=== PATIENT | female | born 1980 | race Caucasian/White ===

== ENCOUNTER 2019-04-07 10:11 | Emergency (ER) | payer SELFPAY ==
--- OUTSIDE RECORDS SUMMARY | 2019-04-07 10:16 | XMS REPORT | Continuity of Care Document ---
:1980 Author Organization Interface Problems Problem Status Onset Classification Date Comments Source Date Reported L TIBFIB FX Active [address] AUTO/PED Active [address] LIFE FLIGHT Active [address] Final: 01/18/2017 [facility] Unspecified Medical fracture of Center shaft of left fibula, initial encounter for closed fracture UNSP FRACTURE Active [facility] OF SHAFT OF Medical LEFT FIBULA, I [place] Medications Medication Details Route Status Patient Ordering Order Source Instructions Provider Date Aspirin 325 MG 325 mg=1 tab, Active [facility] Enteric Coated PO, Daily, # 21 2017 Medical Tablet tab, 0 Refill(s) Center tramadol 50 mg=1 tab, PO, Active [place] hydrochloride 50 Q6H, PRN Pain 2017 Medical MG Oral Tablet Score 7-10, # 24 Center tab, 0 Refill(s) methocarbamol 1,000 mg=2 tab, Active [place] 500 mg oral PO, QID, X 7 2017 Medical tablet day, # 56 tab, 0 Center Refill(s) gabapentin 300 300 mg=1 cap, Active [place] MG Oral Capsule PO, Q8H, # 21 2017 Medical cap, 0 Refill(s) [place] enoxaparin 40 40 mg=0.4 mL, Inactive [place] mg/0.4 mL SUB-Q, [id number], 2017 Medical subcutaneous X 21 day, # 8 Center solution mL, 0 Refill(s) Bacitracin 0.5 1 appl, TOP, Active [place] UNT/MG / BID, # 30 gm, 0 2017 Medical Polymyxin B 10 Refill(s) [place] UNT/MG Topical Ointment acetaminophen 1,000 mg=2 tab, Active [place] 500 mg oral PO, Q6H, X 7 2017 Medical tablet day, # 56 tab, 0 Center Refill(s) Zofran 4 mg, 2 mL, No Longer [facility] Route: IVP, Drug Active 2016 Medical form: INJ, Q8H, Center Dosing Weight 72.727, kg, PRN Nausea, Start date: 01/14/17 10:34:00 CDT, Duration: 30 day, Stop date: 02/13/17 10:33:00 CDTNotes: (Same as: Zofran) MEDICATION WASTE Product Size: 4 mg Product Wasted: ___ mg Bacitracin 0.5 1 appl, Route: No Longer [facility] UNT/MG / TOP, BID, Drug Active 2016 Medical Polymyxin B 10 form: OINT, [place] UNT/MG Topical Priority: Now, Ointment Start date: 01/14/17 10:00:00 CDT, Duration: 30 day, Stop date: 02/13/17 9:00:00 CDTNotes: (Same As: Polysporin) potassium 40 mEq, 2 tab, Inactive [place] chloride 20 mEq Route: PO, Drug 2016 Medical oral tablet, form: ERTAB, [place] extended release ONCE, Dosing Weight 72.727, kg, Start date: 01/14/17 9:10:00 CDT, Stop date: 01/14/17 9:10:00 CDTNotes: (Same as: K-Dur 20) "Do Not Crush" With food and full glass of water naproxen sodium 550 mg, 1 tab, Inactive [facility] Route: PO, Drug 2016 Medical form: TAB, ONCE, Center Dosing Weight 72.727, kg, Start date: 01/13/17 18:19:00 CDT, Stop date: 01/13/17 18:19:00 CDTNotes: (Same as: Anaprox DS) Take with food. tramadol 100 mg, 2 tab, No Longer [facility] hydrochloride 50 Route: PO, Drug Active 2016 Medical MG Oral Tablet form: TAB, Q6H, Center Dosing Weight 72.727, kg, PRN Pain Score 7-10, Start date: 01/13/17 18:19:00 CDT, Duration: 30 day, Stop date: 02/12/17 18:18:00 CDTNotes: Not to exceed 400mg/day. (Same As: Ultram) Methocarbamol 1,000 mg, 2 tab, No Longer [place] Route: PO, Drug Active 2016 Medical form: TAB, QID, Center Dosing Weight 72.727, kg, Priority: NOW, Start date: 01/13/17 18:19:00 CDT, Duration: 30 day, Stop date: 02/12/17 17:00:00 CDTNotes: (Same as:Robaxin) gabapentin 300 300 mg, 1 cap, No Longer [place] MG Oral Capsule Route: PO, Drug Active 2016 Medical form: CAP, Q8H, Center Dosing Weight 72.727, kg, (CrCl > 60 ml/min), Priority: STAT, Start date: 01/13/17 18:18:00 CDT, Duration: 30 day, Stop date: 02/12/17 16:00:00 CDTNotes: (Same as: Neurontin) Acetaminophen 1,000 mg, 2 tab, No Longer [place] Route: PO, Drug Active 2016 Medical form: TAB, Q6H, Center Dosing Weight 72.727, kg, Priority: NOW, Start date: 01/13/17 18:18:00 CDT, Duration: 30 day, Stop date: 02/12/17 18:00:00 CDTNotes: Max acetaminophen 4000 mg/day (4 gm/day). (Same as: Tylenol Extra Strength) Ancef + sodium 2 gm, Route: No Longer [place] chloride 0.9% IVPB, ABXQ8H, Active 2016 Medical INJ 100 mL Dosing Weight Center 72.727, kg, Start date: 01/13/17 18:00:00 CDT, Duration: 3 doses or times, Stop date: 01/14/17 10:00:00 CDTNotes: (Same As: Ancef, Kefzol) MEDICATION WASTE Product Size: 1000 mg Product Wasted: ___ mg Naloxone 0.4 mg, 1 mL, Inactive [place] Route: IVP, Drug 2016 Medical form: INJ, Center Q2MIN, Dosing Weight 72.727, kg, PRN Narcotic Reversal, Start date: 01/13/17 13:47:00 CDT, Duration: 8 doses or times, Stop date: Limited # of timesNotes: (Same as: Narcan) Ondansetron 4 mg, 2 mL, Inactive [facility] Route: IVP, Drug 2016 Medical form: INJ, ONCE, Center Dosing Weight 72.727, kg, PRN Nausea & Vomiting, Start date: 01/13/17 13:47:00 CDTNotes: (Same as: Zofran) MEDICATION WASTE Product Size: 4 mg Product Wasted: ___ mg Flumazenil 0.2 mg, 2 mL, Inactive [facility] Route: IVP, Drug 2016 Medical form: INJ, PRN, Center Dosing Weight 72.727, kg, PRN Benzodiazepine Reversal, Initial dose, Start date: 01/13/17 13:47:00 CDT, Duration: 1 day, Stop date: 01/14/17 13:46:00 CDTNotes: (Same as: Romazicon) Oxycodone 5 mg, 1 tab, Inactive [facility] Route: PO, Drug 2016 Medical form: TAB, Q4H, Center Dosing Weight 72.727, kg, PRN Pain Score 4-6, Start date: 01/13/17 13:47:00 CDT, Duration: 1 day, Stop date: 01/14/17 13:46:00 CDTNotes: (Same as: Roxicodone) Hydromorphone 0.5 mg, 0.25 mL, Inactive [facility] Route: IVP, Drug 2016 Medical form: INJ, Center Q5Min, Dosing Weight 72.727, kg, PRN Pain Score 7-10, Start date: 01/13/17 13:47:00 CDT, Duration: 4 doses or times, Stop date: Limited # of timesNotes: (Same as: Dilaudid) ondansetron Route: IV, Drug Inactive [facility] (ANES) form: INJ, ONCE, 2016 Medical Stop date: [place] 01/13/17 12:50:00 CDT glycopyrrolate Route: IV, Drug Inactive 01/13[facility] (ANES) form: INJ, ONCE, 2016 Medical Stop date: [place] 01/13/17 12:50:00 CDT neostigmine Route: IV, Drug Inactive 03/31/ [facility] [place] (ANES) form: INJ, ONCE, 2016 Medical Stop date: [place] 01/13/17 12:50:00 CDT hydromorphone Route: IV, Drug Inactive [facility] (ANES) form: INJ, ONCE, 2016 Medical Stop date: [place] 01/13/17 11:35:00 CDT fentaNYL (ANES) Route: IV, Drug Inactive [facility] form: INJ, ONCE, 2016 Medical Stop date: [place] 01/13/17 11:00:00 CDT dexamethasone Route: IV, Drug Inactive [facility] (ANES) form: INJ, ONCE, 2016 Medical Stop date: [place] 01/13/17 11:00:00 CDT midazolam (ANES) Route: IV, Drug Inactive [facility] form: SOLN, 2016 Medical ONCE, Stop date: [place] 01/13/17 11:00:00 CDT rocuronium Route: IV, Drug Inactive [facility] (ANES) form: INJ, ONCE, 2016 Medical Stop date: [place] 01/13/17 11:00:00 CDT propofol (ANES) Route: IV, Drug Inactive [facility] form: INJ, ONCE, 2016 Medical Stop date: [place] 01/13/17 11:00:00 CDT lidocaine (ANES) Route: IV, Drug Inactive [facility] form: INJ, ONCE, 2016 Medical Stop date: [place] 01/13/17 11:00:00 CDT ceFAZolin (ANES) Route: IV, Drug Inactive [facility] form: INJ, ONCE, 2016 Medical Stop date: [place] 01/13/17 10:45:00 CDT acetaminophen Route: IV, Drug Inactive [place] (ANES) (ANES) form: INJ, Start 2016 Medical date: 01/13/17 [place] 10:28:00 CDT, Stop date: 01/13/17 11:28:00 CDT LR 1000 mL INJ Route: IV, Total Inactive [place] (ANES) Volume: 1,000, 2016 Medical Start date: [place] 01/13/17 10:05:00 CDT, Stop date: 01/13/17 11:05:00 CDT Lovenox 40 mg, 0.4 mL, No Longer [place] Route: SUB-Q, Active 2016 Medical Drug form: INJ, Center [id number], kg, Start date: 01/13/17 7:00:00 CDT, Duration: 30 day, Stop date: 02/11/17 7:00:00 CDTNotes: (Same as: Lovenox) D5W 1/2NS 1,000 1,000 mL, Rate: No Longer [place] mL 125 ml/hr, Active 2016 Medical Infuse over: 8 Center hr, Route: IV, Total Volume: 1,000, Start date: 01/13/17 5:39:00 CDT, Duration: 30 day, Stop date: 02/12/17 5:38:00 CDT Saline Flush 10 ml, Route: No Longer [place] 0.9% IVP, Drug Form: Active 2016 Medical INJ, kg, PRN, Center PRN Line Flush, Start date: 01/13/17 5:39:00 CDT, Duration: 30 day, Stop date: 02/12/17 5:38:00 CDTNotes: (Same as: BD Posiflush) Ondansetron 4 mg, 2 mL, No Longer [place] Route: IVP, Drug Active 2016 Medical form: INJ, Q6H, Center kg, PRN Nausea & Vomiting, Start date: 01/13/17 5:39:00 CDT, Duration: 30 day, Stop date: 02/12/17 5:38:00 CDTNotes: (Same as: Zofran) MEDICATION WASTE Product Size: 4 mg Product Wasted: ___ mg Morphine 2 mg, 1 mL, Inactive [place] Route: IVP, Drug 2016 Medical form: INJ, Q4H, Center kg, PRN Pain Score 7-10, Start date: 01/13/17 5:39:00 CDT, Duration: 30 day, Stop date: 02/12/17 5:38:00 CDTNotes: (Same as:MORPhine Sulfate) Docusate 100 mg, 1 cap, No Longer [place] Route: PO, Drug Active 2016 Medical form: CAP, BID, Center kg, PRN Constipation, Start date: 01/13/17 5:39:00 CDT, Duration: 30 day, Stop date: 02/12/17 5:38:00 CDTNotes: (Same as: Colace) (Do Not Crush) Acetaminophen 650 mg, 2 tab, Inactive [facility] Route: PO, Drug 2016 Medical form: TAB, Q4H, Center kg, PRN Pain 1-3/Temp > 100.4 F, Start date: 01/13/17 5:39:00 CDT, Duration: 30 day, Stop date: 02/12/17 5:38:00 CDTNotes: Do not exceed 4 gm/day. (Same as: Tylenol) Zofran 4 mg, Route: Inactive [facility] IVP, Drug form: 2017 Medical INJ, ONCE, kg, Center Priority: STAT, Start date: 01/13/17 2:34:00 CDT, Stop date: 01/13/17 2:34:00 CDT Epinephrine 0.01 1 mL, Route: Inactive [facility] MG/ML / SUB-Q, Drug 2016 Medical Lidocaine Form: SOLN, , [place] Hydrochloride 10 ONCE, Start MG/ML Injectable date: 01/13/17 Solution 2:16:00 CDT, Stop date: 01/13/17 2:16:00 CDT Dilaudid 1 mg, Route: Inactive [facility] IVP, ONCE, kg, 2017 Medical Priority: STAT, [place] Start date: 01/13/17 0:28:00 CDT, Stop date: 01/13/17 0:28:00 CDT iodixanol 150 mL, Route: Inactive [facility] IVP, Drug Form: 2017 Medical SOLN, kg, [place] ONCALL, STAT, Start date: 01/13/17 0:27:00 CDT, Duration: 1 doses or times, Dose=2.2ml/kg, Max [id number] -- "To be infused by Radiology Staff ONLY" Sodium Chloride 1,000 mL, 1,000 Inactive [facility] 0.154 MEQ/ML ml/hr, Infuse 2017 Medical Injectable Over: 1 hr, Center Solution Route: IV, ONCE, Priority: STAT, kg, Start date: 01/12/17 23:39:00 CDT, Duration: 1 doses or times, Stop date: 01/12/17 23:39:00 CDT Morphine 4 mg, Route: Inactive [facility] IVP, Drug form: 2017 Medical INJ, ONCE, kg, Center Priority: STAT, Start date: 01/12/17 23:39:00 CDT, Stop date: 01/12/17 23:39:00 CDT Zofran 4 mg, Route: Inactive 01/[facility] IVP, Drug form: 2017 Medical INJ, ONCE, kg, Center Priority: STAT, Start date: 01/12/17 23:39:00 CDT, Stop date: 01/12/17 23:39:00 CDT Saline Flush 10 mL, Route: No Longer [facility] 0.9% IVP, Drug Form: Active 2016 Medical INJ, kg, PRN, Center PRN Line Flush, Start date: 01/12/17 23:31:00 CDT, Stop date: 02/11/17 23:30:00 CDTNotes: (Same as: BD Posiflush) Allergies, Adverse Reactions, Alerts Substance Category Reaction Severity Reaction Status Date Comments Source type Reported Bactrim Assertion Drug Active [facility] Immunizations Immunization Date Given Site Status Last Comments Source Updated diphtheria/pertus 01/13/2017 Left completed Alvaro [facility] sis, acel/tetanus deltoid [facility] Results Order Name Results Value Reference Date Interpretation Comments Source Range CHEM PANEL A/G Ratio 0.8 0.7 - 1.6 01/[address] CHEM PANEL AGAP 11.4 meq/L 10.0 - 01/14 [facility] [address] CHEM PANEL B/C Ratio 4 6 - 25 01/[address] CHEM PANEL Globulin 3.3 g/dL 2.7 - 4.2 01/[address] CHEM PANEL eGFR 122 01/14 Result Comment: The eGFR is calculated using the CKD-EPI formula. In most young, healthy individuals the eGFR will be >90 mL/ min/1.73m2. The eGFR declines with age. An eGFR of 60-89 may be normal in [facility] mL/min/1.7 /2016 some populations, particularly the elderly, for whom the CKD-EPI formula has not been extensively validated. Use of the eGFR is not recommended in the following populations: [address] Individuals with unstable creatinine concentrations, including patients and those with serious co-morbid conditions. Patients with extremes in muscle mass or diet. The data above are obtained from the National Kidney Disease Education Program (NKDEP) which additionally recommends that when the eGFR is used in patients with extremes of body mass index for purposes of drug dosing, the eGFR should be multiplied by the estimated BMI. CHEM PANEL Glucose Lvl 89 mg/dL 70 - 99 01/[address] CHEM PANEL Total Protein 6.0 g/dL 6.4 - 8.4 01/[address] CHEM PANEL Calcium Lvl 7.7 mg/dL 8.5 - 10.5 01/[address] CHEM PANEL BUN 2 mg/dL 7 - 22 01/[address] CHEM PANEL Chloride Lvl 108 meq/L 95 - 109 01/[address] CHEM PANEL CO2 24 meq/L 24 - 32 01/[address] CHEM PANEL Potassium Lvl 3.4 meq/L 3.5 - 5.1 01/[address] CHEM PANEL Bili Total 0.4 mg/dL 0.2 - 1.3 01/[address] CHEM PANEL Alk Phos 72 unit/L 39 - 136 01/[address] CHEM PANEL Creatinine 0.52 mg/dL 0.50 - 01/14 [facility] Lvl 1.40 /[address] [place] [address] CHEM PANEL Sodium Lvl 140 meq/L 135 - 145 01/[address] CHEM PANEL Albumin Lvl 2.7 g/dL 3.5 - 5.0 01/[address] CHEM PANEL ALT 24 unit/L 0 - 65 01/[address] CHEM PANEL AST 44 unit/L 0 - 37 01/[address] CHEM PANEL Magnesium Lvl 1.8 mg/dL 1.8 - 2.4 01/[address] CHEM PANEL Phosphorus 2.2 mg/dL 2.5 - 4.5 01/[address] HEMATOLOGY WBC 11.2 K/CMM 3.7 - 10.4 01/[address] HEMATOLOGY RBC 3.84 M/CMM 4.20 - 01/14 [facility] 5.40 /2016 [facility] HEMATOLOGY MCV 88.4 fL 80.0 - 01/14 [place] 98.0 /2016 [facility] HEMATOLOGY Hgb 11.3 g/dL 12.0 - 01/14 16.0 [facility] HEMATOLOGY MCH 29.5 pg 27.0 - 01/14 31.0 [facility] HEMATOLOGY Hct 33.9 % 36.0 - 01/14 [place] 48.0 [facility] HEMATOLOGY Platelet 301 K/CMM 133 - 450 04 [facility] HEMATOLOGY MPV 8.7 fL 7.4 - 10.4 01/14 [facility] HEMATOLOGY MCHC 33.4 g/dL 32.0 - 01/14 36.0 [facility] HEMATOLOGY RDW 13.5 % 11.5 - 01/14 14.5 [facility] HEMATOLOGY Basophils 0.4 % 0.0 - 1.0 01/14 [facility] HEMATOLOGY Segs-Bands # 6.9 K/CMM 1.5 - 8.1 01/14 [facility] HEMATOLOGY Lymphocytes # 2.6 K/CMM 1.0 - 5.5 01/[address] [place] [address] HEMATOLOGY Monocytes # 1.6 K/CMM 0.0 - 0.8 01/[address] [place] [address] HEMATOLOGY Eosinophils # 0.1 K/CMM 0.0 - 0.5 01/[address] HEMATOLOGY Segs 61.9 % 45.0 - 01/14 75.0 /2016 [facility] HEMATOLOGY Lymphocytes 23.3 % 20.0 - 01/14 40.0 [facility] HEMATOLOGY Eosinophils 0.5 % 0.0 - 4.0 01/14 [facility] HEMATOLOGY Monocytes 13.9 % 2.0 - 12.0 01/[address] [place] [address] Ankle 2 Ankle 2 views EXAM: XR RIGHT ANKLE 3 VIEWS 01/13 - [facility] views DX - [facility] This report was dictated by a [employer] Field Service Technician/Fellow. I have personally reviewed the images as Center well as the Resident's interpretation and agree with the findings. DATE: 01/13/2017 10:03 AM CDT Read by: René Arreola MD Resident: René Arreola MD Dictated Date/time: 01/13/17 15:08 Electronically Signed by: Nenita Vann MD 01/13/17 18:13 FINAL REPORT INDICATION: POST OP - ALIGNMENT COMPARISON: Right ankle radiographs from the same day TECHNIQUE: AP, lateral and oblique radiographs of the right ankle FINDINGS: Interval placement of two syndesmotic screws with satisfactory alignment of the syndesmotic space. Satisfactory alignment of the medial malleolus fracture after screw fixation is noted. The ankle mortise is congruent. Soft tissue swelling of the ankle is noted. IMPRESSION: 1. Interval decrease in width of the syndesmotic space status post screw fixation. 2. Satisfactory alignment of the medial malleolus fracture status post screw fixation. DRUG SCREEN U Cocaine Scr Negative Negative 01/13 [facility] [place] (01/13/17 5:36 AM) DRUG SCREEN U Benzodia Positive Negative 01/13 [facility]* [place] (01/13/17 5:36 AM) DRUG SCREEN U Cannab Scr Negative Negative 01/13 [facility] [place] (01/13/17 5:36 AM) DRUG SCREEN U Amph Scr Negative Negative 01/13 [facility]* [place] (01/13/17 5:36 AM) DRUG SCREEN U Ashwini Scr Negative Negative 01/13 [facility] [place] (01/13/17 5:36 AM) DRUG SCREEN UDS Note See Note 01/13 [facility] (01/13/17 5:36 AM) [place] DRUG SCREEN U Phencyc Scr Negative Negative 01/13 [facility] [place] (01/13/17 5:36 AM) DRUG SCREEN U Opiate Scr Positive Negative 01/13 [facility]* [place] (01/13/17 5:36 AM) URINE AND UA Sq Epi Few /LPF Few /LPF 01/13 [facility] STOOL [facility] URINE AND UA Bacteria Few /HPF None Seen 01/13 [facility] STOOL /HPF /2016 [facility] URINE AND UA Mucus Few /LPF None Seen 01/13 [facility] STOOL /LPF /[address] [place] [address] URINE AND UA WBC 17 /HPF 0 - 5 01/13 [id number] [facility] URINE AND UA RBC 3 /HPF 0 - 2 01/13 [facility]2016 [facility] URINE AND UA Leuk Est Negative Negative 01/13 [facility] (01/13/17 5:36 AM) [place] URINE AND UA Blood Small Negative 01/13 [facility] [place] (01/13/17 5:36 AM) URINE AND UA Nitrite Positive Negative 01/13 [facility] [place] (01/13/17 5:36 AM) URINE AND UA 0.2 EU/dL 0.1 - 1.0 01/13 [facility] Urobilinogen /2016 [facility] URINE AND UA Ketones 15 Negative 01/13 [facility] [place] (01/13/17 5:36 AM) URINE AND UA Glucose Negative Negative 01/13 [facility] (01/13/17 5:36 AM) [place] URINE AND UA Bili Negative Negative 01/13 [facility] [place] (01/13/17 5:36 AM) URINE AND UA Protein 30 mg/dL Negative 01/13 [facility] mg/dL [facility] URINE AND UA Turbidity Clear Clear 01/13 [facility] (01/13/17 5:36 AM) [place] URINE AND UA pH 5.5 5.0 - 8.0 01/[address] URINE AND UA Spec Grav 1.010 <=1.030 01/13 [facility] [address] [place] [address] URINE AND UA Color Yellow Yellow 01/13 [facility] [address] [place], [place] [id number]* [place] (01/13/17 5:36 AM) CHEM PANEL Lactic Acid 1.3 mMol/L 0.5 - 2.2 01/13 [facility] Lvl [facility] ELECTROLYTE AGAP 14.7 meq/L 10.0 - 01/13 [facility] S 20.0 [facility] ELECTROLYTE eGFR 65 01/13 Result Comment: The eGFR is calculated using the CKD-EPI formula. In most young, healthy individuals the eGFR will be >90 mL/ min/1.73m2. The eGFR declines with age. An eGFR of 60-89 may be normal in [facility] mL/min/1.7 /2016 some populations, particularly the elderly, for whom the CKD-EPI formula has not been extensively validated. Use of the eGFR is not recommended in the following populations: [address] Individuals with unstable creatinine concentrations, including patients and those with serious co-morbid conditions. Patients with extremes in muscle mass or diet. The data above are obtained from the National Kidney Disease Education Program (NKDEP) which additionally recommends that when the eGFR is used in patients with extremes of body mass index for purposes of drug dosing, the eGFR should be multiplied by the estimated BMI. ELECTROLYTE Chloride Lvl 103 meq/L 95 - 109 01/[address] ELECTROLYTE CO2 21 meq/L 24 - 32 01/[address] ELECTROLYTE Potassium Lvl 3.7 meq/L 3.5 - 5.1 01/[address] ELECTROLYTE Calcium Lvl 8.7 mg/dL 8.5 - 10.5 01/[address] ELECTROLYTE BUN 5 mg/dL 7 - 22 01/[address] ELECTROLYTE Glucose Lvl 147 mg/dL 70 - 99 01/[address] ELECTROLYTE Creatinine 0.66 mg/dL 0.50 - 01/13 [facility] Lvl 1. [facility] ELECTROLYTE Sodium Lvl 135 meq/L 135 - 145 01/[address] ENDOCRINOLO S Preg Negative Negative 01/13 [facility] (01/12/17 11:40 PM) [place] HEMATOLOGY Basophils # 0.1 K/CMM 0.0 - 0.2 01/[address] HEMATOLOGY Eosinophils # 0.2 K/CMM 0.0 - 0.5 01/[address] HEMATOLOGY Eosinophils 0.7 % 0.0 - 4.0 01/[address] HEMATOLOGY Basophils 0.4 % 0.0 - 1.0 01/[address] HEMATOLOGY Segs-Bands # 17.0 K/CMM 1.5 - 8.1 01/[address] HEMATOLOGY Lymphocytes # 2.9 K/CMM 1.0 - 5.5 01/[address] HEMATOLOGY Monocytes # 1.7 K/CMM 0.0 - 0.8 01/[address] HEMATOLOGY Segs 78.0 % 45.0 - 01/13 [facility] 75.0 [facility] HEMATOLOGY Lymphocytes 13.3 % 20.0 - 01/13 [facility] 40.0 [facility] HEMATOLOGY Monocytes 7.6 % 2.0 - 12.0 01/13 [facility] HEMATOLOGY Estimated % 0.6 % 0.0 - 7.5 01/13 [facility] Lysis [facility] HEMATOLOGY G-value Rapid 12.9 K 5.0 - 11.6 01/13 d/ [facility] HEMATOLOGY Max Amplitude 72 mm 52 - 71 01/13 [facility] HEMATOLOGY Angle Rapid 79 degrees 64 - 80 01/13 [facility] HEMATOLOGY K-time Rapid 0.8 min 0.6 - 2.3 01/13 [facility] HEMATOLOGY R-time Rapid 0.6 min 0.4 - 0.7 01/13 [facility] HEMATOLOGY ACT (TEG) 105 s 86 - 118 01/13 [facility] HEMATOLOGY [place] 0.5 min 01/13 [facility] HEMATOLOGY Platelet 393 K/CMM 133 - 450 01/13 [facility] HEMATOLOGY MPV 8.5 fL 7.4 - 10.4 01/13 [facility] HEMATOLOGY MCV 88.4 fL 80.0 - 01/13 98.0 [facility] HEMATOLOGY MCH 30.3 pg 27.0 - 01/13 31.0 [facility] HEMATOLOGY MCHC 34.3 g/dL 32.0 - 01/13 36.0 [facility] HEMATOLOGY RDW 13.4 % 11.5 - 01/13 14.5 [facility] HEMATOLOGY Hct 42.7 % 36.0 - 01/13 48.0 [facility] HEMATOLOGY WBC 21.8 K/CMM 3.7 - 10.4 01/13 [facility] HEMATOLOGY RBC 4.83 M/CMM 4.20 - 01/13 [place] 5.40 [facility] HEMATOLOGY Hgb 14.6 g/dL 12.0 - 01/13 [place] 16.0 [facility] TOXICOLOGY Etoh (%) null 01/13 [facility] TOXICOLOGY Ethanol Lvl null 01/13 [facility] BLOOD BANK Antibody Scrn Negative 01/13 Medical (01/12/17 11:40 PM) [place] BLOOD BANK ABO/Rh O NEG 01/13 [facility] Forearm 2 Forearm 2 EXAM: LEFT Forearm 2 views DX 01/13 - [facility] views DX views DX /2016 - Medical EXAM: LEFT Wrist complete DX Center EXAM: LEFT Hand 3 views DX Read by: Boris Parish MD Dictated Date/time: 01/13/17 01:51 Electronically Signed by: Boris Parish MD 01/13/17 01:58 FINAL REPORT DATE: 01/13/2017 1:14 AM CDT INDICATION: fracture - fracture ADDITIONAL INFORMATION: '36 yo F brought in by [facility] s/p auto/ped/.' COMPARISON: None. TECHNIQUE: AP and lateral views of the left forearm; PA, oblique and lateral views each of the left wrist and left hand. FINDINGS: The left radius and ulnar are intact without acute fracture or dislocation. There is no appreciable soft tissue swelling of the left forearm. There is an IV catheter in the antecubital fossa region. There is no acute fracture or dislocation involving the left wrist or left hand. There is mild volar soft tissue swelling at the left wrist without subcutaneous emphysema or radiopaque foreign body iden tified. An IV catheter is noted along the dorsal left hand. IMPRESSION: 1. No acute bone or joint space abnormality of the left forearm, wrist or hand is identified. 2. Mild volar soft tissue swelling of the left wrist. Wrist Wrist EXAM: LEFT Forearm 2 views DX 01/13 - [facility] complete DX complete DX - Medical EXAM: LEFT Wrist complete DX Center EXAM: LEFT Hand 3 views DX Read by: Boris Parish MD Dictated Date/time: 01/13/17 01:51 Electronically Signed by: Boris Parish MD 01/13/17 01:58 FINAL REPORT DATE: 01/13/2017 1:14 AM CDT INDICATION: fracture - fracture ADDITIONAL INFORMATION: '36 yo F brought in by LF s/p auto/ped/.' COMPARISON: None. TECHNIQUE: AP and lateral views of the left forearm; PA, oblique and lateral views each of the left wrist and left hand. FINDINGS: The left radius and ulnar are intact without acute fracture or dislocation. There is no appreciable soft tissue swelling of the left forearm. There is an IV catheter in the antecubital fossa region. There is no acute fracture or dislocation involving the left wrist or left hand. There is mild volar soft tissue swelling at the left wrist without subcutaneous emphysema or radiopaque foreign body iden tified. An IV catheter is noted along the dorsal left hand. IMPRESSION: 1. No acute bone or joint space abnormality of the left forearm, wrist or hand is identified. 2. Mild volar soft tissue swelling of the left wrist. Knee series Knee series 3 EXAM: XR RIGHT KNEE 3 VIEWS 01/13 - [place] 3 views DX views DX - Medical This report was dictated by a Hvac Field Service Technician/Fellow. I have personally reviewed the images as Center well as the Resident's interpretation and agree with the findings. DATE: 01/13/2017 and 0114 hours Read by: Neda Allen MD Resident: Neda Allen MD Dictated Date/time: 01/13/17 01:53 Electronically Signed by: Boris Parish MD 01/13/17 03:15 FINAL REPORT INDICATION: Fibular fracture COMPARISON: Right tibia and fibula radiographs from 01/12/2017 TECHNIQUE: 3 views of the knee FINDINGS: There is redemonstration of the comminuted proximal fibular diaphyseal fracture with approximately 1 cortical width of anterior displacement. No malalignment of the knee identified. There is s ignificant soft tissue swelling about the lateral aspect of the leg. No knee joint effusion. IMPRESSION: 1. Unchanged appearance of the comminuted, minimally displaced proximal right fibular diaphyseal fracture. Hand 3 Hand 3 views EXAM: LEFT Forearm 2 views DX 01/13 -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
--- NOTE | 2019-04-07 10:56 | ER ---
Nurse's Notes [facility] Name: Vanessa Solitario Age: 38 yrs Sex: Female : 1980 Arrival Date: 04/07/2019 Time: 10:20 Bed 7 Private MD: Diagnosis: Epilepsy and recurrent seizures;Laceration without foreign body of scalp Presentation: 04/07 10:20 Presenting complaint: EMS states: Patient had reported seizure while at work, and hit aj her left eyebrow on the ground when she fell. Small laceration noted to left eyebrow. Patient is awake and alert upon arrival to ER. EMS reported patient was post ictal upon arrival. Transition of care: patient was not received from another setting of care. Onset of symptoms was April 07, 2019. Risk Assessment: Do you want to hurt yourself or someone else? Patient reports no desire to harm self or others. Initial Sepsis Screen: Does the patient meet any 2 criteria? No. Patient's initial sepsis screen is negative. Does the patient have a suspected source of infection? No. Patient's initial sepsis screen is negative. Care prior to arrival: Medication(s) given: Normal saline infusion, 500 mL, zofran 4 mg, IV initiated. 20 GA, in the left forearm, Glucose check: 189. 10:20 Method Of Arrival: EMS: [facility] 10:20 Acuity: PABLO 3 aj Triage Assessment: 10:23 General: Appears in no apparent distress. comfortable, Behavior is calm, cooperative, aj appropriate for age. Pain: Denies pain. Neuro: Level of Consciousness is awake, alert, obeys commands, Oriented to person, place, time, situation, Appropriate for age Seizure activity reported prior to arrival. Respiratory: Airway is patent Respiratory effort is even, unlabored, Respiratory pattern is regular, symmetrical. Derm: Skin is intact, is healthy with good turgor, Skin is pink, warm \T\ dry. normal. Injury Description: Laceration sustained to left supraorbital ridge. Historical: - Allergies: 10:23 Sulfa (Sulfonamide Antibiotics); aj - Home Meds: 10:23 Clindamycin Oral [Active]; aj - PMHx: 10:23 Ovarian cyst; Seizures; aj - PSHx: 10:23 right ankle; aj - Immunization history:: Adult Immunizations up to date. - Social history:: Smoking status: Patient uses tobacco products. - Ebola Screening: : Patient negative for fever greater than or equal to 101.5 degrees Fahrenheit, and additional compatible Ebola Virus Disease symptoms Patient denies exposure to infectious person Patient denies travel to an Ebola-affected area in the 21 days before illness onset No symptoms or risks identified at this time. Assessment: 10:34 Reassessment: No changes from previously documented assessment. Patient requested to aj leave AMA. Vital Signs: 10: BP 137 / 70; Pulse 84; Resp 16; Temp 98.4; Pulse Ox 98% on R/A; Weight 68.04 kg; Height aj 5 ft. 4 in. (162.56 cm); 10:23 Body Mass Index 25.75 (68.04 kg, 162.56 cm) aj [place] Coma Score: 10:23 Eye Response: spontaneous(4). Verbal Response: oriented(5). Motor Response: obeys aj commands(6). Total: 15. ED Course: 10:20 Patient arrived in ED. aj 10: Santino Solorzano PA is PHCP. jr8 10:22 Harshil Benjamin MD is Attending Physician. jr8 10:22 Triage completed. aj 10:23 Arm band placed on right wrist. Patient placed in an exam room, on a stretcher, on aj alarm security or surveillance monitor, on pulse oximetry. 10:34 Venus Milligan, RN is Primary Nurse. aj 10:35 IV discontinued, intact, bleeding controlled, No redness/swelling at site. Pressure aj dressing applied. Administered Medications: No medications were administered Outcome: 10:35 AMA AMA form signed aj :35 unknown 10:35 Instructed on risks of leaving AMA 10:35 Patient left the ED. aj Signatures: Venus Milligan, RN RN Santino Mcbride PA PA jr8 Corrections: (The following items were deleted from the chart) 10:26 10:20 Care prior to arrival: None. aj aj
--- NOTE | 2019-04-07 10:56 | EDPHYS ---
Physician Documentation [facility] Name: Vanessa Solitario Age: 38 yrs Sex: Female : 1980 Arrival Date: 04/07/2019 Time: 10:20 Bed 7 Private MD: ED Physician Harshil Benjamin HPI: 04/07 17:09 This 38 yrs old Female presents to ER via EMS with complaints of Probable jr8 Seizure. 17:09 The patient presents after having a single isolated seizure. Seizure onset: just prior jr8 to arrival. Current symptoms: Currently, the patient is not experiencing any symptoms, the patient feels back to baseline, no decreased level of consciousness, no confusion, no dysphasia, no headache, no paralysis. It is unknown whether or not the patient has had similar symptoms in the past. The patient has not recently seen a physician. Patient stated that she had a seizure at work today. EMS brought patient in for further evaluation at that time. Patient upon arrival A\T\O x 4 in no acute distress. Stated that she has a history of seizures. Concerned now because she thinks the police are going to arrest her because they found yayo in her bag. Historical: - Allergies: 10:23 Sulfa (Sulfonamide Antibiotics); aj - Home Meds: 10:23 Clindamycin Oral [Active]; aj - PMHx: 10:23 Ovarian cyst; Seizures; aj - PSHx: 10:23 right ankle; aj - Immunization history:: Adult Immunizations up to date. - Social history:: Smoking status: Patient uses tobacco products. - Ebola Screening: : Patient negative for fever greater than or equal to 101.5 degrees Fahrenheit, and additional compatible Ebola Virus Disease symptoms Patient denies exposure to infectious person Patient denies travel to an Ebola-affected area in the 21 days before illness onset No symptoms or risks identified at this time. ROS: 17:09 Eyes: Negative for injury, pain, redness, and discharge, ENT: Negative for injury, jr8 pain, and discharge, Neck: Negative for injury, pain, and swelling, Cardiovascular: Negative for chest pain, palpitations, and edema, Respiratory: Negative for shortness of breath, cough, wheezing, and pleuritic chest pain, Abdomen/GI: Negative for abdominal pain, nausea, vomiting, diarrhea, and constipation, Back: Negative for injury and pain, MS/Extremity: Negative for injury and deformity. 17:09 Skin: Positive for laceration(s), of the face. 17:09 Neuro: Positive for loss of consciousness, seizure activity. Exam: 17:09 Eyes: Pupils equal round and reactive to light, extra-ocular motions intact. Lids and jr8 lashes normal. Conjunctiva and sclera are non-icteric and not injected. Cornea within normal limits. Periorbital areas with no swelling, redness, or edema. ENT: Nares patent. No nasal discharge, no septal abnormalities noted. Tympanic membranes are normal and external auditory canals are clear. Oropharynx with no redness, swelling, or masses, exudates, or evidence of obstruction, uvula midline. Mucous membranes moist. Neck: Trachea midline, no thyromegaly or masses palpated, and no cervical lymphadenopathy. Supple, full range of motion without nuchal rigidity, or vertebral point tenderness. No Meningismus. Cardiovascular: Regular rate and rhythm with a normal S1 and S2. No gallops, murmurs, or rubs. Normal PMI, no JVD. No pulse deficits. Respiratory: Lungs have equal breath sounds bilaterally, clear to auscultation and percussion. No rales, rhonchi or wheezes noted. No increased work of breathing, no retractions or nasal flaring. Abdomen/GI: Soft, non-tender, with normal bowel sounds. No distension or tympany. No guarding or rebound. No evidence of tenderness throughout. Back: No spinal tenderness. No costovertebral tenderness. Full range of motion. Skin: Warm, dry with normal turgor. Normal color with no rashes, no lesions, and no evidence of cellulitis. MS/ Extremity: Pulses equal, no cyanosis. Neurovascular intact. Full, normal range of motion. Neuro: Awake and alert, GCS 15, oriented to person, place, time, and situation. Cranial nerves II-XII grossly intact. Motor strength 5/5 in all extremities. Sensory grossly intact. Cerebellar exam normal. Normal gait. 17:09 Head/face: Noted is a laceration(s), that is deep, that is linear, 2.5 cm(s), of the left supraorbital ridge . Vital Signs: 10:23 BP 137 / 70; Pulse 84; Resp 16; Temp 98.4; Pulse Ox 98% on R/A; Weight 68.04 kg; Height aj 5 ft. 4 in. (162.56 cm); 10:23 Body Mass Index 25.75 (68.04 kg, 162.56 cm) aj [place] Coma Score: 10:23 Eye Response: spontaneous(4). Verbal Response: oriented(5). Motor Response: obeys aj commands(6). Total: 15. MDM: 10:22 Patient medically screened. jr8 10:28 Data reviewed: vital signs, nurses notes. Data interpreted: Pulse oximetry: on room air jr8 is 98 %. Interpretation: normal. 17:09 ED course: Patient after initial assessment is refusing treatment. When asked why she howard kept saying that we are stalling so police can come arrest her. I explained to patient that we having nothing to do with that. The only thing we are concerned about is her safety and health. That we need to repair her laceration and insure that she has no other seizures. Patient still declined treatment. Patient in no acute distress at that time and was of sound mind. Able to answer all questions appropriately. Was alert to person, place, time, event. Did not appear to be under the influence of anything just on observation. Patient signed AMA knowing the risks of leaving without further assessment . Administered Medications: No medications were administered Disposition: 04/08 09:47 Co-signature as Attending Physician, Harshil Benjamin MD I agree with the assessment and [facility] plan of care. Disposition: 04/07/19 10:30 Patient has left against medical advice. Impression: Epilepsy and recurrent seizures, Laceration without foreign body of scalp. - Patients states they are going to Home. - Condition is Stable. - Discharge Instructions: Laceration Care, Adult, Seizure, Adult. Follow up: Private Physician; When: 2 - 3 days; Reason: Recheck today's complaints, Continuance of care, Re-evaluation by your physician. - Problem is new. - Symptoms are unchanged. Signatures: Venus Milligan RN RN aj Anderson, Corey, MD MD cha Roszak, Josh, PA PA jr8 Corrections: (The following items were deleted from the chart) 04/07 10:35 10:30 04/07/2019 10:30 Patients has left against medical advice. Impression: Epilepsy aj and recurrent seizures; Laceration without foreign body of scalp. Patient states they are going to Home. Condition is Stable. Follow up: Private Physician; When: 2 - 3 days; Reason: Recheck today's complaints, Continuance of care, Re-evaluation by your physician. Problem is new. Symptoms are unchanged. jr8
[2019-04-07 11:04] VITALS: BP 137/70; TEMP 98.4; O2SAT 98
== END 2019-04-07 10:35 | disposition left against medical advice (07) ==
LOC: ER 10:11
DX: S01.01XA Laceration without foreign body of scalp, initial encounter (principal); W19.XXXA Unspecified fall, initial encounter; Y93.9 Activity, unspecified; Y92.89 Other specified places as the place of occurrence of the external cause; Y99.8 Other external cause status; Z88.2 Allergy status to sulfonamides
CPT/HCPCS: 99283

== ENCOUNTER 2019-12-13 19:47 | Emergency (ER) | payer OTHER, SELFPAY ==
[2019-12-13] MEDS ORDERED: MORPHINE 4 MG/ML SYR ONE (21:23)
[2019-12-13] MEDS ORDERED: ONDANSETRON 4 MG/2 ML VIAL ONE (21:23)
[2019-12-13] MEDS ORDERED: NA CHLORIDE 0.9% 1,000 ML ONE (21:23)
[2019-12-13 21:31] LABS: Absolute Lymphocytes (CBC) 2.9 K/uL (0.7-4.9); Basophils % 1.2 % (0-1.3); Hematocrit 43.8 % (36.0-45.0); Lymphocytes % 23.7 % (15.3-44.8); MPV 8.8 fL (7.6-11.3); RBC Red Blood Cell Count 4.78 M/uL (3.86-4.86)
[2019-12-13 21:39] LABS: BUN Blood Urea Nitrogen 4 mg/dL (7-18); Bicarbonate 25 mmol/L (21-32); Glucose Level 104 mg/dL (74-106); Potassium 3.5 mmol/L (3.5-5.1); Sodium Level 139 mmol/L (136-145)
[2019-12-13 22:05] LABS: Urine Bacteria <20 /HPF (<20); Urine RBC <5 /HPF (NONE SEEN)
[2019-12-13 22:06] LABS: Urine Culture Reflex Order NOT NEEDED
[2019-12-13 22:25] LABS: Urine Blood NEGATIVE (NEG); Urine Glucose NEGATIVE (NEG); Urine Protein NEGATIVE (NEG); Urine pH 6.5 (5.0-7.0)
[2019-12-13] MEDS ORDERED: FENTANYL CITR 100 MCG/2 ML ONE (23:24)
--- NOTE | 2019-12-14 00:09 | ER ---
Nurse's Notes [facility] Name: Vanessa Solitario Age: 39 yrs Sex: Female : 1980 Arrival Date: 12/13/2019 Time: 19:49 Bed 28 Private MD: Diagnosis: Other ovarian cysts Presentation: 12/13 20:27 Chief complaint: Patient states: "I am having right side pain on my flank. Tylenol is jd3 not helping anymore. I had an abscess drained and I needed to have that followed up with and never was able to.". Coronavirus screen: The patient has NOT traveled to [place] in the past 14 days. The patient has NOT had contact with known and/or suspected case of Coronavirus. Proceed with normal triage procedures. Ebola Screen: Patient negative for fever greater than or equal to 101.5 degrees Fahrenheit, and additional compatible Ebola Virus Disease symptoms. Initial Sepsis Screen: Does the patient meet any 2 criteria? No. Patient's initial sepsis screen is negative. Does the patient have a suspected source of infection? No. Patient's initial sepsis screen is negative. Risk Assessment: Do you want to hurt yourself or someone else? Patient reports no desire to harm self or others. 20:27 Method Of Arrival: Ambulatory jd3 20:27 Acuity: PABLO 3 jd3 21:00 Onset of symptoms was December 11, 2019. vc ONLINE MERCHANDISER: 20:30 LMP 12/13/2019 jd3 Historical: - Allergies: 20:30 Sulfa (Sulfonamide Antibiotics); jd3 - Home Meds: 20:30 None [Active]; jd3 - PMHx: 20:30 Ovarian cyst; Seizures; jd3 - PSHx: 20:30 right ankle; jd3 - Immunization history:: Adult Immunizations up to date. - Social history:: Smoking status: Reported history of juuling and/or vaping. Screenin:10 Abuse screen: Denies threats or abuse. Nutritional screening: No deficits noted. vc Tuberculosis screening: No symptoms or risk factors identified. Fall Risk None identified. Assessment: 21:10 General: Appears in no apparent distress. uncomfortable, Behavior is cooperative, vc appropriate for age, agitated, anxious. Pain: Complains of pain in back, anterior aspect of right lateral abdomen and right upper quadrant. Neuro: Level of Consciousness is awake, alert, obeys commands. Cardiovascular: Capillary refill < 3 seconds Patient's skin is warm and dry. Respiratory: Airway is patent Respiratory effort is even, unlabored, Respiratory pattern is regular, symmetrical. GI: No signs and/or symptoms were reported involving the gastrointestinal system. : No signs and/or symptoms were reported regarding the genitourinary system. EENT: No signs and/or symptoms were reported regarding the EENT system. Derm: Skin temperature is warm. Musculoskeletal: Circulation, motion, and sensation intact. Range of motion: intact in all extremities. 23:14 Reassessment: Patient appears in no apparent distress at this time. Patient and/or mg2 family updated on plan of care and expected duration. Pain level reassessed. Patient is alert, oriented x 3, equal unlabored respirations, skin warm/dry/pink. 00:23 Reassessment: Patient appears in no apparent distress at this time. Patient and/or jd3 family updated on plan of care and expected duration. Pain level reassessed. Patient is alert, oriented x 3, equal unlabored respirations, skin warm/dry/pink. pt reported understanding of discharge instructions, even and steady gait upon discharge. Vital Signs: 12/13 20:30 BP 143 / 94; Pulse 75; Resp 17 S; Temp 98.7(TE); Pulse Ox 98% on R/A; Weight 68.04 kg jd3 (R); Height 5 ft. 4 in. (162.56 cm) (R); Pain 9/10; 21:30 BP 137 / 111; Pulse 58; Resp 18; Pulse Ox 98% on R/A; vc 23:07 BP 108 / 86; Pulse 73 RA; Resp 18; Pulse Ox 97% on R/A; mg2 23:55 BP 127 / 93; Pulse 70; Resp 18; Pulse Ox 100% on R/A; mg2 20:30 Body Mass Index 25.75 (68.04 kg, 162.56 cm) jd3 ED Course: 19:49 Patient arrived in ED. cl3 20:29 Triage completed. jd3 20:32 Arm band placed on. jd3 20:36 Deisi York [facility]C [facility] kb 20:36 Agus Abarca MD is Attending Physician. kb 21:10 Calcote, Oxana, RN is Primary Nurse. vc 21:10 Patient has correct armband on for positive identification. Placed in gown. Bed in low vc position. Call light in reach. Side rails up X 1. Pulse ox on. NIBP on. 21:13 Initial lab(s) drawn, by me, sent to lab. Inserted saline lock: 20 gauge in left lt1 forearm, using aseptic technique. 21:52 No provider procedures requiring assistance completed. vc 22:48 CT Abd/Pelvis - IV Contrast Only In Process Unspecified. EDMS 00:23 IV discontinued, intact, bleeding controlled, No redness/swelling at site. Pressure jd3 dressing applied. Administered Medications: 12/13 21:20 Drug: morphine 4 mg Route: IVP; Site: left antecubital; vc 21:44 Follow up: Response: No adverse reaction; Pain is decreased vc 21:20 Drug: Zofran (Ondansetron) 4 mg Route: IVP; Site: left antecubital; vc 21:44 Follow up: Response: No adverse reaction; Pain is decreased vc 21:20 Drug: NS 0.9% 1000 ml Route: IV; Rate: 1000 ml; Site: left antecubital; vc 00:24 Follow up: Response: No adverse reaction; IV Status: Completed infusion; IV Intake: jd3 1000ml 12/13 23:22 Drug: fentaNYL (PF) 25 mcg Route: IVP; Site: left antecubital; mg2 23:55 Follow up: Response: No adverse reaction mg2 Intake: 00:24 IV: 1000ml; Total: 1000ml. jd3 Outcome: 00:08 Discharge ordered by . tram 00:21 Discharged to home ambulatory, with family. jd3 00:21 Condition: stable 00:21 Discharge instructions given to patient, family, Instructed on discharge instructions, follow up and referral plans. medication usage, Demonstrated understanding of instructions, follow-up care, medications, Prescriptions given X 4. 00:24 Patient left the ED. jd3 Signatures: Dispatcher [employer] EDNE Deisi York, SUPERVISOR INSTRUMENT MAINTENANCE-Chuy GOMEZP-Hayes Koo RN RN jEmigdio Gan RN RN mg2 Michelle, Jazmin lt1 Adama Adan cl3 Oxana Gomez RN RN vc
--- NOTE | 2019-12-14 00:09 | EDPHYS ---
Physician Documentation [facility] Name: Vanessa Solitario Age: 39 yrs Sex: Female : 1980 Arrival Date: 12/13/2019 Time: 19:49 Bed 28 Private MD: ED Physician Agus Abarca HPI: 00:53 This 39 yrs old Female presents to ER via Ambulatory with complaints of Back kb Pain. 00:53 The patient complains of pain in the right flank. The pain does not radiate. Onset: The kb symptoms/episode began/occurred 3 day(s) ago. Modifying factors: The symptoms are alleviated by nothing. the symptoms are aggravated by movement, palpation/percussion. Associated signs and symptoms: The patient has no apparent associated signs or symptoms. Severity of pain: At its worst the pain was moderate in the emergency department the pain is unchanged. The patient has not experienced similar symptoms in the past. The patient has not recently seen a physician. RESOURCE FORESTER: 12/13 20:30 LMP 12/13/2019 jd3 Historical: - Allergies: 20:30 Sulfa (Sulfonamide Antibiotics); jd3 - Home Meds: 20:30 None [Active]; jd3 - PMHx: 20:30 Ovarian cyst; Seizures; jd3 - PSHx: 20:30 right ankle; jd3 - Immunization history:: Adult Immunizations up to date. - Social history:: Smoking status: Reported history of juuling and/or vaping. ROS: 00:53 Constitutional: Negative for fever, chills, and weight loss, Neck: Negative for injury, kb pain, and swelling, Cardiovascular: Negative for chest pain, palpitations, and edema, Respiratory: Negative for shortness of breath, cough, wheezing, and pleuritic chest pain, Abdomen/GI: Negative for abdominal pain, nausea, vomiting, diarrhea, and constipation, : Negative for injury, bleeding, discharge, and swelling, MS/Extremity: Negative for injury and deformity, Skin: Negative for injury, rash, and discoloration, Neuro: Negative for headache, weakness, numbness, tingling, and seizure. Back: Positive for flank pain, of the right flank. Exam: 00:53 Constitutional: This is a well developed, well nourished patient who is awake, alert, kb and in no acute distress. Head/Face: Normocephalic, atraumatic. Neck: Trachea midline, no thyromegaly or masses palpated, and no cervical lymphadenopathy. Supple, full range of motion without nuchal rigidity, or vertebral point tenderness. No Meningismus. Chest/axilla: Normal chest wall appearance and motion. Nontender with no deformity. No lesions are appreciated. Cardiovascular: Regular rate and rhythm with a normal S1 and S2. No gallops, murmurs, or rubs. Normal PMI, no JVD. No pulse deficits. Respiratory: Lungs have equal breath sounds bilaterally, clear to auscultation and percussion. No rales, rhonchi or wheezes noted. No increased work of breathing, no retractions or nasal flaring. Abdomen/GI: Soft, non-tender, with normal bowel sounds. No distension or tympany. No guarding or rebound. No evidence of tenderness throughout. Skin: Warm, dry with normal turgor. Normal color with no rashes, no lesions, and no evidence of cellulitis. MS/ Extremity: Pulses equal, no cyanosis. Neurovascular intact. Full, normal range of motion. Neuro: Awake and alert, GCS 15, oriented to person, place, time, and situation. Cranial nerves II-XII grossly intact. Motor strength 5/5 in all extremities. Sensory grossly intact. Cerebellar exam normal. Normal gait. 00:53 Back: CVA tenderness, that is moderate, is noted on the right. Vital Signs: 12/13 20:30 BP 143 / 94; Pulse 75; Resp 17 S; Temp 98.7(TE); Pulse Ox 98% on R/A; Weight 68.04 kg jd3 (R); Height 5 ft. 4 in. (162.56 cm) (R); Pain 9/10; 21:30 BP 137 / 111; Pulse 58; Resp 18; Pulse Ox 98% on R/A; vc 23:07 BP 108 / 86; Pulse 73 RA; Resp 18; Pulse Ox 97% on R/A; mg2 23:55 BP 127 / 93; Pulse 70; Resp 18; Pulse Ox 100% on R/A; mg2 20:30 Body Mass Index 25.75 (68.04 kg, 162.56 cm) j MDM: 20:36 Patient medically screened. kb 00:54 Data reviewed: vital signs, nurses notes. Data interpreted: Pulse oximetry: on room air kb is 100 %. Interpretation: normal. Counseling: I had a detailed discussion with the patient and/or guardian regarding: the historical points, exam findings, and any diagnostic results supporting the discharge/admit diagnosis, lab results, radiology results, the need for outpatient follow up, an OB/Gyne specialist, to return to the emergency department if symptoms worsen or persist or if there are any questions or concerns that arise at home. ED course: Pt reports she has had an abscess before in the left side that she sees dr pearce for. Denies urinary symptoms, fever, vaginal discharge, or left sided pain. . 12/13 20:56 Order name: Basic Metabolic Panel; Complete Time: 21:44 kb 12/13 20:56 Order name: CBC with Diff; Complete Time: 21:37 kb 12/13 20:56 Order name: Urine Microscopic Only; Complete Time: 22:06 kb 12/13 22:06 Order name: CT Abd/Pelvis - IV Contrast Only kb 12/13 22:18 Order name: Urine Dipstick--Ancillary (enter results); Complete Time: 22:34 ar5 12/13 22:18 Order name: Urine --Ancillary (enter results); Complete Time: 22:34 ar5 12/13 20:56 Order name: IV Saline Lock; Complete Time: 21:14 kb 12/13 20:56 Order name: Labs collected and sent; Complete Time: 21:14 kb 12/13 20:56 Order name: Urine Test (obtain specimen); Complete Time: 21:44 kb 12/13 20:56 Order name: Urine Dipstick-Ancillary (obtain specimen); Complete Time: 21:44 kb Administered Medications: 12/13 21:20 Drug: morphine 4 mg Route: IVP; Site: left antecubital; vc 21:44 Follow up: Response: No adverse reaction; Pain is decreased vc 21:20 Drug: Zofran (Ondansetron) 4 mg Route: IVP; Site: left antecubital; vc 21:44 Follow up: Response: No adverse reaction; Pain is decreased vc 21:20 Drug: NS 0.9% 1000 ml Route: IV; Rate: 1000 ml; Site: left antecubital; vc 00:24 Follow up: Response: No adverse reaction; IV Status: Completed infusion; IV Intake: jd3 1000ml 12/13 23:22 Drug: fentaNYL (PF) 25 mcg Route: IVP; Site: left antecubital; mg2 23:55 Follow up: Response: No adverse reaction mg2 Disposition: 12/14/19 00:08 Discharged to Home. Impression: Other ovarian cysts. - Condition is Stable. - Discharge Instructions: Ovarian Cyst, [id number]. - Prescriptions for Zofran 4 mg Oral Tablet - take 1 tablet by ORAL route every 6 hours As needed; 20 tablet. Doxycycline Hyclate 100 mg Oral Tablet - take 1 tablet by ORAL route every 12 hours; 20 tablet. Diclofenac Sodium 75 mg Oral Tablet, Delayed Release (E.C.) - take 1 tablet by ORAL route 2 times per day As needed; 30 tablet. Tramadol 50 mg Oral Tablet - take 1 tablet by ORAL route every 8 hours as needed; 12 tablet. - Medication Reconciliation Form, Thank You Letter, Antibiotic Education, Prescription Opioid Use form. - Follow up: Private Physician; When: 2 - 3 days; Reason: Recheck today's complaints, Continuance of care, Re-evaluation by your physician. Follow up: Emergency Department; When: As needed; Reason: Worsening of condition. Addendum: 12/15/2019 02:15 Co-signature as Attending Physician, Agus Abarca MD I agree with the assessment and t w4 plan of care. Signatures: Dispatcher [employer] EDMS Deisi York, COMPENSATION DIRECTOR-C COMPENSATION DIRECTOR-Hayes Koo RN RN jd3 Agus Abarca MD MD tw4 Emigdio Barboza RN RN mg2 Oxana Gomez RN RN vc Corrections: (The following items were deleted from the chart) 00:24 00:08 12/14/2019 00:08 Discharged to Home. Impression: Other ovarian cysts. Condition jd3 is Stable. Forms are Medication Reconciliation Form, Thank You Letter, Antibiotic Education, Prescription Opioid Use. Follow up: Private Physician; When: 2 - 3 days; Reason: Recheck today's complaints, Continuance of care, Re-evaluation by your physician. Follow up: Emergency Department; When: As needed; Reason: Worsening of condition. kb
[2019-12-14 00:42] VITALS: TEMP 98.7
[2019-12-14 00:47] VITALS: BP 127/93; O2SAT 100
--- NOTE | 2019-12-16 14:41 | RAD REPORT ---
EXAM DESCRIPTION: Abdomen Pelvis W Contrast CLINICAL HISTORY: 39-year-old female with flank pain. COMPARISON: None. TECHNIQUE: CT of the abdomen and pelvis was performed following intravenous administration of contra st. Oral contrast was not administered. Multiplanar reformatted images were provided. This exam was p erformed according to our departmental dose optimization program which includes use of automated expo sure control, adjustment of the mA and/or kV according to patient size and/or use of iterative recons truction technique. FINDINGS: Chest: Evaluation through the lung bases reveals no focal opacity, pleural effusion or pne umothorax. Heart size is within normal limits. No pericardial effusion. Abdomen and pelvis: Hepatomegaly measuring 19.4 cm. The liver, gallbladder, pancreas, spleen, bilater al kidneys and bilateral adrenal glands are within normal limits. The vessels are patent and normal in caliber. No abdominopelvic lymph nodes are noted to be pathologically enlarged by CT measurement criteria. The bowel is within normal limits without abnormal bowel wall thickness or bowel dilation. No free air. No free abdominopelvic fluid collections. The appendix is within normal limits. The uter us is within normal limits of a contrast-enhanced CT examination. The LEFT adnexa is complex in appea sondra. The central adnexa reveals a cystic type structure measuring 3.6 cm with hypoattenuating elvin nts suggestive of a simple LEFT ovarian cyst. However, tubular fluid-filled structure is identified c oursing peripherally to the cystic type structure measuring 12 mm in diameter compatible with hydrosa lpinx, of uncertain etiology. No peripheral, pelvic inflammatory change or free fluid is identified. On the RIGHT two hypoattenuating structures. Compatible with simple ovarian cyst measures 2.3 cm. No tubular dilation present on the RIGHT. The osseous structures are within normal limits. IMPRESSION: 1. Complicated appearance of the LEFT tubo-ovarian complex with central suspected simple ovarian cyst, and adjacent tubular structure compatible with hydrosalpinx without adjacent inflammat ory change, of uncertain etiology. In the correct clinical setting the possibility of hydrosalpinx or salpingitis may be considered. Correlation with pelvic sonography is recommended for complete charac terization. Please correlate with test. 2. 3.6 cm benign appearing ovarian cyst. No follow-up imaging is recommended. Reference: J Am Charline Radiol 2013;10:675-681 3. Hepatomegaly. Electronically signed by: Ursula Mclean MD 12/13/2019 11:06 PM CLEARANCE CENTER MANAGER Due to temporary technical issues with the PACS/Fluency reporting system, reports are being signed by the in house radiologist as a courtesy to ensure prompt reporting. The interpreting radiologist is f ully responsible for the content of the report.
== END 2019-12-14 00:24 | disposition home or self-care (01) ==
LOC: ER 19:47
DX: N83.299 Other ovarian cyst, unspecified side (principal); Z88.2 Allergy status to sulfonamides
CPT/HCPCS: 96361; 85025; 80048; 36415; 81025; 74177; 96375; 96374; 99284; Q9967; J2405; 81003; 81015; J3010; J7030

== ENCOUNTER 2019-12-16 11:39 | Emergency (ER) | payer OTHER, SELFPAY ==
[2019-12-16] MEDS ORDERED: ONDANSETRON 4 MG/2 ML VIAL ONE (12:17)
[2019-12-16] MEDS ORDERED: CLINDAMYCIN 900MG/D5W 900 MG/50 ML IVPB IV ONE (12:17)
[2019-12-16] MEDS ORDERED: NA CHLORIDE 0.9% 1,000 ML ONE ×2 (12:17→14:29)
--- NOTE | 2019-12-16 12:34 | RAD REPORT ---
EXAM DESCRIPTION: RAD - Chest Single View - 12/16/2019 12:25 pm CLINICAL HISTORY: COUGH Chest pain. COMPARISON: Chest Single View dated 02/21/2016; CHEST SINGLE VIEW dated 10/08/2015; CHEST SINGLE VIEW dated 10/07/2015; CHEST SINGLE VIEW dated 10/06/2015; Abdomen Pelvis W Contrast dated 12/13/2019 FINDINGS: Portable technique limits examination quality. The lungs are grossly clear. The heart is normal in size. No displaced fractures. IMPRESSION: No acute intrathoracic process suspected.
--- NOTE | 2019-12-16 12:39 | RAD REPORT ---
EXAM DESCRIPTION: CT - Stone Protocol - 12/16/2019 12:26 pm CLINICAL HISTORY: ABD PAIN COMPARISON: Abdomen Pelvis W Contrast dated 12/13/2019; Abdomen Pelvis W Contrast dated 02/21/2016; Transvaginal Study Probe dated 02/27/2016 TECHNIQUE: Axial 3 mm thick images were obtained without oral or IV contrast. The [id number] span s the entirety of the system including uppermost abdomen and lung bases. All CT scans are performed using dose optimization technique as appropriate and may include automated exposure control or mA/KV adjustment according to patient size. FINDINGS: No hydronephrosis is present and no obstructing ureteral calculi. No suspicious renal mass es. Isodense masses and pyelonephritis are not excluded on a stone protocol CT scan. No urinary bladd er suspicious finding. No significant adrenal finding. Numerous phleboliths are seen in the pelvis. No gross change to the uterus from the December 13 study. Right ovary and the approximately 2.5 ariana timeter right ovarian cyst are stable over the short interval. The dominant left ovarian cyst or cyst ic mass along with left fallopian tube dilatation again noted. No cyst rupture or hemorrhage. No rain a or stranding in the fatty tissues adjacent to the left tubo-ovarian complex. The 2015 study showed an large irregular 10-11 mm centimeter left adnexal cystic mass. It is possible the current findings are the chronic sequela of that prior event. Intervening surgical history is not known. Imaged portions of the liver, spleen and pancreas show no suspicious findings on non-contrast imaging . No gallbladder or biliary tree abnormality identified. No changes from prior imaging. No suspicious bowel findings. No hernia, mass or bulky lymphadenopathy noted. No free air, free fluid or inflammatory stranding. No significant bony abnormality. IMPRESSION: Enlarged left tubo-ovarian complex shows no change from the December 13 study. There is no edema or stranding in the fatty tissues in the left adnexum. Left adnexal findings are pr obably hydrosalpinx with dominant 3.6 centimeter left ovarian cyst. No evidence for cyst rupture or h emorrhage. The patient did have a large complex 10-11 cm left adnexal mass in 2016. It is possible that the left adnexal findings are the chronic sequela of that prior event. Isodense masses and pyelonephritis are not excluded on stone protocol technique. No identifiable changes over the short interval since December 13.
[2019-12-16 12:40] LABS: Absolute Lymphocytes (CBC) 2.2 K/uL (0.7-4.9); Basophils % 0.5 % (0-1.3); Hematocrit 44.5 % (36.0-45.0); Lymphocytes % 12.6 % (15.3-44.8); RBC Red Blood Cell Count 4.94 M/uL (3.86-4.86)
[2019-12-16 12:43] LABS: Protime INR 1.2
[2019-12-16 12:52] LABS: ALT/SGPT 15 U/L (12-78); AST/SGOT 13 U/L (15-37); Albumin 3.8 g/dL (3.4-5.0); Alkaline Phosphatase 98 U/L (45-117); BUN Blood Urea Nitrogen 9 mg/dL (7-18); Bicarbonate 21 mmol/L (21-32); Bilirubin Direct < 0.1 mg/dL (0-0.2); Bilirubin Total 0.6 mg/dL (0.2-1.0); Glucose Level 134 mg/dL (74-106); Lipase 144 U/L (73-393); Magnesium 1.7 mg/dL (1.8-2.4); NT PRO-BNP 248 pg/mL (<125); Protein, Total 8.2 g/dL (6.4-8.2); Sodium Level 137 mmol/L (136-145); Troponin (Emerg Dept Use Only) < 0.02 ng/mL (0.0-0.045)
--- NOTE | 2019-12-16 13:05 | RAD REPORT ---
EXAM DESCRIPTION: US - Transvaginal Study Probe - 12/16/2019 12:50 pm CLINICAL HISTORY: PAIN COMPARISON: Transvaginal Study Probe dated 02/27/2016 TECHNIQUE: Endovaginal sonography was performed. FINDINGS: Uterus measures approximately 8.2 x 3.5 x 4.5 cm. Nabothian cysts are present. No myometri al mass. Endometrium is 6 mm with no focal mass or polyp identified. There is a normal endometrium- m yometrium interface. No blood or fluid in the cul de sac. Approximately 2.1 centimeter anechoic right ovarian cyst is present. No right ovarian or right adnexa l suspicious finding. Doppler evaluation shows right ovarian blood flow. In the left adnexal approximately 4.5 centimeter anechoic thin-walled cyst or cystic mass present. Th ere is an adjacent tubular anechoic structure. These are the correlates to the left adnexal findings on the CT study. No cyst hemorrhage or debris present. The suspected dilated fallopian tube has no ec hogenic debris. Normal ovarian tissue is somewhat difficult to identify a due to the distortion by th e enlarged cyst and fallopian tube. IMPRESSION: A small 2.1 centimeter anechoic right ovarian cyst is present without cyst rupture or he morrhage. No right adnexal abnormality. History indicates right-sided pain now radiating to the jaw. Ultrasound study shows no peritoneal jaya e fluid or blood. The CT study showed no free fluid. Enlarged left fallopian tube with 4.5 centimeter anechoic cyst. No debris in either the cyst or dilat ed fallopian tube. Given the history of right-sided symptoms, the left tubo-ovarian complex may be the sequela of a comp taqueria cystic mass that was present back in 2016.
[2019-12-16 13:52] LABS: Urine Blood NEGATIVE (NEG); Urine Glucose 2+ (NEG); Urine Protein 2+ (NEG); Urine Specific Gravity 1.025 (1.005-1.030); Urine pH 5.5 (5.0-7.0)
[2019-12-16 14:06] LABS: Barbiturates NEGATIVE (NEGATIVE); Benzodiazepines POSITIVE (NEGATIVE); Cocaine NEGATIVE (NEGATIVE); METHAMPHETAM NEGATIVE (NEGATIVE); Methadone NEGATIVE (NEGATIVE); Opiates NEGATIVE (NEGATIVE); Phencyclidine NEGATIVE (NEGATIVE); THC Cannibis NEGATIVE (NEGATIVE)
--- NOTE | 2019-12-16 14:06 | ER ---
Nurse's Notes [facility] Name: Vanessa Solitario Age: 39 yrs Sex: Female : 1980 Arrival Date: 12/16/2019 Time: 11:41 Bed 24 Private MD: Diagnosis: Dental caries;Vomiting;Other ovarian cysts;Hypomagnesemia;Elevated white blood cell count Presentation: 12/15 11:51 Chief complaint: Patient states: Seen in ER 3 days ago for flank pain, diagnosed with ss an ovarian cyst and given oral antibiotics. Pt reports now she is having dental pain with swelling to her R jaw and is shaking all over. Coronavirus screen: The patient has NOT traveled to [place] in the past 14 days. Proceed with normal triage procedures. Ebola Screen: Patient denies exposure to infectious person. Patient denies travel to an Ebola-affected area in the 21 days before illness onset. Initial Sepsis Screen: Does the patient meet any 2 criteria? Does the patient have a suspected source of infection? Yes: Other: dental pain. 11:51 Method Of Arrival: Ambulatory ss 11:51 Acuity: PABLO 2 ss 12:30 Risk Assessment: Do you want to hurt yourself or someone else? Patient reports no vc desire to harm self or others. Triage Assessment: 15:30 General: Appears in no apparent distress. uncomfortable, Behavior is cooperative, vc anxious. Pain: Complains of pain in right lower quadrant and right upper quadrant. GI: Reports lower abdominal pain. 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 - Social history:: Smoking status: Patient denies any tobacco usage or history of. Screenin:30 Abuse screen: Denies threats or abuse. Nutritional screening: No deficits noted. vc Tuberculosis screening: No symptoms or risk factors identified. Fall Risk None identified. Assessment: 12:30 GI: Abdomen is non-distended. vc 12:30 General: Appears in no apparent distress. uncomfortable, ill, Behavior is cooperative, vc agitated, anxious. Pain: Complains of pain in right lower quadrant and right upper quadrant and anterior aspect of right lateral abdomen and posterior aspect of right lateral abdomen. Neuro: Level of Consciousness is awake, alert, obeys commands, Oriented to person, place, time, situation, Appropriate for age. Cardiovascular: Patient's skin is warm and dry. Respiratory: Respiratory effort is even, unlabored, Respiratory pattern is regular, symmetrical. GI: Pt is actively vomiting clear fluid. : No signs and/or symptoms were reported regarding the genitourinary system. EENT: No signs and/or symptoms were reported regarding the EENT system. Derm: No signs and/or symptoms reported regarding the dermatologic system. Musculoskeletal: Circulation, motion, and sensation intact. Range of motion: intact in all extremities. 13:30 Reassessment: Patient and/or family updated on plan of care and expected duration. Pain vc level reassessed. IV INFILTRATED, WILL INSERT NEW IV. 14:30 Reassessment: Patient and/or family updated on plan of care and expected duration. Pain vc level reassessed. DISCHARGE PENDING DUE TO FLUIDS INFUSING Patient states feeling better. 15:30 Reassessment: Patient and/or family updated on plan of care and expected duration. Pain vc level reassessed. Patient is alert, oriented x 3, equal unlabored respirations, skin warm/dry/pink. Patient states feeling better. Patient states symptoms have improved. 15:33 Reassessment: DISCHARGE PENDING DUE TO FLUIDS INFUSING. vc 16:36 Reassessment: DISCHARGE PENDING LAB RESULTS. vc 17:00 Reassessment: Patient and/or family updated on plan of care and expected duration. Pain vc level reassessed. Patient is alert, oriented x 3, equal unlabored respirations, skin warm/dry/pink. Patient denies pain at this time. Patient states feeling better. Patient states symptoms have improved. Vital Signs: 11:51 BP 99 / 71; Pulse 75; Resp 20; Pulse Ox 97% on R/A; Weight 68.04 kg; Height 5 ft. 4 in. ss (162.56 cm); Pain 10/10; 13:30 BP 100 / 68; Pulse 58; Resp 21; Pulse Ox 98% on R/A; vc 14:30 BP 108 / 70; Pulse 65; Resp 18; Pulse Ox 97% on R/A; vc 15:35 BP 121 / 65; Pulse 74; Resp 18; Pulse Ox 98% on R/A; vc 16:45 BP 124 / 68; Pulse 75; Resp 18; Pulse Ox 99% on R/A; vc 11:51 Body Mass Index 25.75 (68.04 kg, 162.56 cm) ss 11:51 pt is actively vomiting while obtaining VS ss ED Course: 11:41 Patient arrived in ED. ag5 11:55 Triage completed. ss 11:55 Arm band placed on right wrist. ss 11:56 Harshil Benjamin MD is Attending Physician. oz 12:20 Initial lab(s) drawn, by me, sent to lab. First set of blood cultures drawn by me. lt1 12:26 XRAY Chest (1 view) In Process Unspecified. EDMS 12:26 CT Stone Protocol In Process Unspecified. EDMS 12:29 Inserted saline lock: 22 gauge in right wrist, using aseptic technique. lt1 12:30 Patient has correct armband on for positive identification. Placed in gown. Bed in low vc position. Call light in reach. Side rails up X 1. Pulse ox on. NIBP on. 12:52 US Transvaginal Study (Probe) In Process Unspecified. EDMS 13:19 Oxana Gomez, RN is Primary Nurse. vc 13:30 No provider procedures requiring assistance completed. Inserted saline lock: 22 gauge vc in right antecubital area, using aseptic technique. 13:47 EKG done, by radiologic technology instructor. reviewed by Harshil Benjamin MD. at1 17:20 IV discontinued, intact, bleeding controlled, No redness/swelling at site. Pressure vc dressing applied. Administered Medications: 12:15 Drug: Zofran (Ondansetron) 4 mg Route: IVP; Site: right antecubital; vc 13:00 Follow up: Response: No adverse reaction; Nausea is decreased; Vomiting decreased vc 13:40 Drug: NS 0.9% 1000 ml Route: IV; Rate: 1 bolus; Site: right antecubital; vc 15:30 Follow up: IV Status: Completed infusion; IV Intake: 1000ml vc 13:40 Drug: Clindamycin 900 mg Route: IVPB; Infused Over: 30 mins; Site: right antecubital; vc 15:15 Follow up: IV Status: Completed infusion; IV Intake: 50ml vc 14:20 Drug: NS 0.9% 1000 ml Route: IV; Rate: 1 bolus; Site: right antecubital; vc 16:00 Follow up: IV Status: Completed infusion; IV Intake: 1000ml vc 14:45 Drug: Magnesium Sulfate 1 grams Route: IVPB; Infused Over: 1 hrs; Site: right vc antecubital; 15:20 Follow up: IV Status: Completed infusion; IV Intake: 100ml vc 15:24 Not Given (INFUSING 2 LITERS BOLUS): NS 0.9% 1000 ml IV at 125 ml/hr continuous vc 17:10 Drug: Potassium Effervescent Tablet 25 mEq Route: PO; vc 17:11 Follow up: Response: No adverse reaction; Medication administered at discharge. vc Intake: 15:15 IV: 50ml; Total: 50ml. vc 15:20 IV: 100ml; Total: 150ml. vc 15:30 IV: 1000ml; Total: 1150ml. vc 16:00 IV: 1000ml; Total: 2150ml. vc Outcome: 14:05 Discharge ordered by MD. clinton 15:32 Condition: good vc 17:20 Discharged to home ambulatory. vc 17:20 Discharge instructions given to patient, Instructed on discharge instructions, follow up and referral plans. medication usage. 17:20 Demonstrated understanding of instructions, follow-up care, medications, Prescriptions given X 4. 17:23 Patient left the ED. lt1 Signatures: Dispatcher [employer] Harshil Granados MD MD cha Smirch, Shelby, RN RN Venus Carlson, tape editor EKG Tat1 Alisson Stinson ag5 Jazmin Martinez lt1 Oxana Gomez RN RN vc
--- NOTE | 2019-12-16 14:06 | EDPHYS ---
Physician Documentation [facility] Name: Vanessa Solitario Age: 39 yrs Sex: Female : 1980 Arrival Date: 12/16/2019 Time: 11:41 Bed 24 Private MD: ENRIQUE Physician Harshil Benjamin HPI: 12/15 12:07 This 39 yrs old Female presents to ER via Ambulatory with complaints of Leg oz Swelling, Nausea/Vomiting, Breathing Difficulty. 12:07 The patient presents to the emergency department with nausea, vomiting, abdominal pain, oz of the posterior aspect of right lateral abdomen, anterior aspect of right lateral abdomen, right upper quadrant and right lower quadrant. Onset: The symptoms/episode began/occurred 3 day(s) ago. Possible causes: unknown. The symptoms are aggravated by nothing. The symptoms are alleviated by nothing. Associated signs and symptoms: The patient has no apparent associated signs or symptoms. Severity of symptoms: At their worst the symptoms were mild moderate in the emergency department the symptoms are unchanged. The patient has not experienced similar symptoms in the past. 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 - Social history:: Smoking status: Patient denies any tobacco usage or history of. ROS: 12:08 Constitutional: Negative for fever, chills, and weight loss, Eyes: Negative for injury, oz pain, redness, and discharge, ENT: Negative for injury, pain, and discharge, Neck: Negative for injury, pain, and swelling, Cardiovascular: Negative for chest pain, palpitations, and edema, Respiratory: Negative for shortness of breath, cough, wheezing, and pleuritic chest pain, Back: Negative for injury and pain, : Negative for injury, bleeding, discharge, and swelling, MS/Extremity: Negative for injury and deformity, Skin: Negative for injury, rash, and discoloration, Neuro: Negative for headache, weakness, numbness, tingling, and seizure, Psych: Negative for depression, anxiety, suicide ideation, homicidal ideation, and hallucinations, Allergy/Immunology: Negative for hives, rash, and allergies, Endocrine: Negative for neck swelling, polydipsia, polyuria, polyphagia, and marked weight changes. 12:08 Abdomen/GI: Positive for abdominal pain, nausea and vomiting, of the posterior aspect of right lateral abdomen, anterior aspect of right lateral abdomen, right upper quadrant and right lower quadrant. Exam: 12:08 Constitutional: This is a well developed, well nourished patient who is awake, alert, oz and in no acute distress. Head/Face: Normocephalic, atraumatic. Eyes: Pupils equal round and reactive to light, extra-ocular motions intact. Lids and lashes normal. Conjunctiva and sclera are non-icteric and not injected. Cornea within normal limits. Periorbital areas with no swelling, redness, or edema. ENT: Nares patent. No nasal discharge, no septal abnormalities noted. Tympanic membranes are normal and external auditory canals are clear. Oropharynx with no redness, swelling, or masses, exudates, or evidence of obstruction, uvula midline. Mucous membranes moist. Neck: Trachea midline, no thyromegaly or masses palpated, and no cervical lymphadenopathy. Supple, full range of motion without nuchal rigidity, or vertebral point tenderness. No Meningismus. Chest/axilla: Normal chest wall appearance and motion. Nontender with no deformity. No lesions are appreciated. Cardiovascular: Regular rate and rhythm with a normal S1 and S2. No gallops, murmurs, or rubs. Normal PMI, no JVD. No pulse deficits. Respiratory: Lungs have equal breath sounds bilaterally, clear to auscultation and percussion. No rales, rhonchi or wheezes noted. No increased work of breathing, no retractions or nasal flaring. Back: No spinal tenderness. No costovertebral tenderness. Full range of motion. Female : Normal external genitalia. Skin: Warm, dry with normal turgor. Normal color with no rashes, no lesions, and no evidence of cellulitis. MS/ Extremity: Pulses equal, no cyanosis. Neurovascular intact. Full, normal range of motion. Neuro: Awake and alert, GCS 15, oriented to person, place, time, and situation. Cranial nerves II-XII grossly intact. Motor strength 5/5 in all extremities. Sensory grossly intact. Cerebellar exam normal. Normal gait. Psych: Awake, alert, with orientation to person, place and time. Behavior, mood, and affect are within normal limits. 12:08 Abdomen/GI: Inspection: abdomen appears normal, Bowel sounds: hyperactive, Palpation: mild abdominal tenderness, in the posterior aspect of right lateral abdomen, anterior aspect of right lateral abdomen, right upper quadrant and right lower quadrant. 12:08 Musculoskeletal/extremity: Extremities: all appear grossly normal, with no appreciated pain with palpation, ROM: no acute changes, Circulation is intact in all extremities. Sensation intact. Compartment Syndrome exam of affected extremity: is normal. DVT Exam: No signs of deep vein thrombosis. no pain, no swelling, no tenderness, negative Homans' sign noted on exam, no appreciated bluish discoloration, no erythema, no increased warmth. Vital Signs: 11:51 BP 99 / 71; Pulse 75; Resp 20; Pulse Ox 97% on R/A; Weight 68.04 kg; Height 5 ft. 4 in. ss (162.56 cm); Pain 10/10; 13:30 BP 100 / 68; Pulse 58; Resp 21; Pulse Ox 98% on R/A; vc 14:30 BP 108 / 70; Pulse 65; Resp 18; Pulse Ox 97% on R/A; vc 15:35 BP 121 / 65; Pulse 74; Resp 18; Pulse Ox 98% on R/A; vc 16:45 BP 124 / 68; Pulse 75; Resp 18; Pulse Ox 99% on R/A; vc 11:51 Body Mass Index 25.75 (68.04 kg, 162.56 cm) ss 11:51 pt is actively vomiting while obtaining VS ss MDM: 11:56 Patient medically screened. [facility] 12:10 Data reviewed: vital signs, nurses notes, lab test result(s), EKG, radiologic studies, [facility] CT scan, plain films. 12/15 12:06 Order name: Basic Metabolic Panel; Complete Time: 13:52 [facility] 12/15 12:06 Order name: CBC with Diff; Complete Time: 13:52 [facility] 12/15 12:06 Order name: LFT's; Complete Time: 13:52 [facility] 12/15 12:06 Order name: Magnesium; Complete Time: 13:52 [facility] 12/15 12:06 Order name: NT PRO-BNP; Complete Time: 13:52 [facility] 12/15 12:06 Order name: PT-INR; Complete Time: 13:52 [facility] 12/15 12:06 Order name: Troponin (emerg Dept Use Only); Complete Time: 13:52 [facility] 12/15 12:06 Order name: Lipase; Complete Time: 13:52 [facility] 12/15 12:06 Order name: Blood Culture Adult (2) [facility] 12/15 12:06 Order name: Procalcitonin; Complete Time: 13:52 [facility] 12/15 12:06 Order name: Lactate; Complete Time: 13:52 [facility] 12/15 12:06 Order name: Acetaminophen; Complete Time: 13:52 [facility] 12/15 12:06 Order name: ETOH Level; Complete Time: 13:52 [facility] 12/15 12:06 Order name: Ptt, Activated; Complete Time: 13:52 [facility] 12/15 12:06 Order name: XRAY Chest (1 view); Complete Time: 13:52 [facility] 12/15 12:06 Order name: Salicylate; Complete Time: 13:52 [facility] 12/15 12:06 Order name: Urine Drug Screen; Complete Time: 14:51 [facility] 12/15 12:06 Order name: CT Stone Protocol; Complete Time: 13:52 [facility] 12/15 12:17 Order name: Sed Rate; Complete Time: 13:52 [facility] 12/15 12:17 Order name: US Transvaginal Study (Probe); Complete Time: 13:52 [facility] 12/15 13:43 Order name: Urine Dipstick--Ancillary (enter results); Complete Time: 13:55 bd 12/15 13:43 Order name: Urine --Ancillary (enter results); Complete Time: 13:55 bd 12/15 14:01 Order name: Lactate; Complete Time: 14:51 [facility] 12/15 16:50 Order name: Lactate Sepsis 2 HR Follow-up [facility] 12/15 12:06 Order name: EKG; Complete Time: 12:09 [facility] 12/15 12:06 Order name: Cardiac monitoring; Complete Time: 13:54 [facility] 12/15 12:06 Order name: EKG - Nurse/Tech; Complete Time: 13:54 [facility] 12/15 12:06 Order name: IV Saline Lock; Complete Time: 12:30 [facility] 12/15 12:06 Order name: Labs collected and sent; Complete Time: 12:30 [facility] 12/15 12:06 Order name: O2 Per Protocol; Complete Time: 13:54 [facility] 12/15 12:06 Order name: O2 Sat Monitoring; Complete Time: 13:54 [facility] 12/15 12:06 Order name: Urine Dipstick-Ancillary (obtain specimen); Complete Time: 13:56 [facility] 12/15 12:06 Order name: Urine Test (obtain specimen); Complete Time: 13:53 [facility] 12/15 16:52 Order name: PO challenge: juice; Complete Time: 16:53 [facility] Administered Medications: 12:15 Drug: Zofran (Ondansetron) 4 mg Route: IVP; Site: right antecubital; vc 13:00 Follow up: Response: No adverse reaction; Nausea is decreased; Vomiting decreased vc 13:40 Drug: NS 0.9% 1000 ml Route: IV; Rate: 1 bolus; Site: right antecubital; vc 15:30 Follow up: IV Status: Completed infusion; IV Intake: 1000ml vc 13:40 Drug: Clindamycin 900 mg Route: IVPB; Infused Over: 30 mins; Site: right antecubital; vc 15:15 Follow up: IV Status: Completed infusion; IV Intake: 50ml vc 14:20 Drug: NS 0.9% 1000 ml Route: IV; Rate: 1 bolus; Site: right antecubital; vc 16:00 Follow up: IV Status: Completed infusion; IV Intake: 1000ml vc 14:45 Drug: Magnesium Sulfate 1 grams Route: IVPB; Infused Over: 1 hrs; Site: right vc antecubital; 15:20 Follow up: IV Status: Completed infusion; IV Intake: 100ml vc 15:24 Not Given (INFUSING 2 LITERS BOLUS): NS 0.9% 1000 ml IV at 125 ml/hr continuous vc 17:10 Drug: Potassium Effervescent Tablet 25 mEq Route: PO; vc 17:11 Follow up: Response: No adverse reaction; Medication administered at discharge. vc Disposition: 12/16/19 14:05 Discharged to Home. Impression: Dental caries, Vomiting, Other ovarian cysts, Hypomagnesemia, Elevated white blood cell count. - Condition is Stable. - Discharge Instructions: Dental Pain, Hypomagnesemia, Nausea and Vomiting, Adult, Ovarian Cyst, Nausea and Vomiting, Adult, [id number], Ovarian Cyst, Full-lq-[id number], Dental Pain, [id number]. - Prescriptions for Clindamycin HCl 300 mg Oral Capsule - take 1 capsule by ORAL route every 6 hours for 10 days; 40 capsule. Zofran 4 mg Oral Tablet - take 1 tablet by ORAL route every 12 hours As needed; 20 tablet. Doxycycline Hyclate 100 mg Oral Tablet - take 1 tablet by ORAL route every 12 hours; 20 tablet. Tylenol- Codeine #3 300-30 mg Oral Tablet - take 2 tablets by ORAL route every 6 hours As needed; 20 tablet. - Medication Reconciliation Form, Thank You Letter, Antibiotic Education, Prescription Opioid Use form. - Follow up: Private Physician; When: 2 - 3 days; Reason: Recheck today's complaints, Continuance of care, Re-evaluation by your physician. - Problem is new. - Symptoms have improved. Signatures: Dispatcher [employer] EDOK Harshil Benjamin MD MD cha Smirch, Shelby RN RN Jazmin Martinez [facility] Oxana Gomez RN RN vc Corrections: (The following items were deleted from the chart) 17:06 14:54 LACTATE+C.LAB.BRZ ordered. [facility] EDOK 17:23 14:05 12/16/2019 14:05 Discharged to Home. Impression: Dental caries; Vomiting; Other lt1 ovarian cysts; Hypomagnesemia; Elevated white blood cell count. Condition is Stable. Forms are Medication Reconciliation Form, Thank You Letter, Antibiotic Education, Prescription Opioid Use. Follow up: Private Physician; When: 2 - 3 days; Reason: Recheck today's complaints, Continuance of care, Re-evaluation by your physician. Problem is new. Symptoms have improved. oz
[2019-12-16] MEDS ORDERED: MAGNESIUM SULFATE 1 gm IVPB 1 GM/100 ML BAG IV ONE (14:29)
--- NOTE | 2019-12-16 15:32 | EKG ---
Test Date: 2019-12-16 Test Time: 13:27:48 Thinner Sprayer: MARY MEASUREMENT RESULTS: Intervals: Rate: 49 RI: 116 QRSD: 100 QT: 466 QTc: 420 [place]: P: 65 RI: 116 QRS: 94 T: 70 INTERPRETIVE STATEMENTS: Marked sinus bradycardia Rightward axis Abnormal ECG Compared to ECG 03/01/2016 07:06:50 Right-axis deviation now present Electronically Signed On 12-16-19 15:31:29 BI SOLUTIONS ARCHITECT by Medardo Bustamante
[2019-12-16] MEDS ORDERED: POTASSIUM 25 MEQ EFFERV TAB ONE (17:09)
[2019-12-16 19:48] VITALS: BP 121/65; O2SAT 98
== END 2019-12-16 17:23 | disposition home or self-care (01) ==
LOC: ER 11:39
DX: K02.9 Dental caries, unspecified (principal); E83.42 Hypomagnesemia; D72.829 Elevated white blood cell count, unspecified; N83.299 Other ovarian cyst, unspecified side; Z88.2 Allergy status to sulfonamides
CPT/HCPCS: 36415; 71045; 74176; 76377; 76830; 80048; 80076; 80307; 80320; 80329; 81003; 81025; 83605; 83690; 83735; 83880; 84145; 84484; 85025; 85610; 85652; 85730; 87040; 93005; 96361; 96365; 96375; 99284; J2405; J3475; J7030

== ENCOUNTER 2019-12-23 14:43 | Emergency (ER) | payer SELFPAY ==
[2019-12-23] MEDS ORDERED: DIPHENHYDRAMINE 50 MG/ML VIAL ONE (15:31)
[2019-12-23] MEDS ORDERED: NA CHLORIDE 0.9% 1,000 ML ONE (15:31)
[2019-12-23 15:45] LABS: Absolute Lymphocytes (CBC) 2.4 K/uL (0.7-4.9); Basophils % 1.2 % (0-1.3); Hematocrit 40.8 % (36.0-45.0); Lymphocytes % 31.8 % (15.3-44.8); MPV 8.5 fL (7.6-11.3); RBC Red Blood Cell Count 4.46 M/uL (3.86-4.86)
[2019-12-23 15:56] LABS: ALT/SGPT 14 U/L (12-78); AST/SGOT 14 U/L (15-37); Albumin 3.4 g/dL (3.4-5.0); Alkaline Phosphatase 86 U/L (45-117); BUN Blood Urea Nitrogen 4 mg/dL (7-18); Bicarbonate 28 mmol/L (21-32); Bilirubin Total 0.4 mg/dL (0.2-1.0); Glucose Level 101 mg/dL (74-106); Protein, Total 7.2 g/dL (6.4-8.2); Sodium Level 141 mmol/L (136-145)
[2019-12-23 15:58] LABS: Potassium 2.8 mmol/L (3.5-5.1)
[2019-12-23] MEDS ORDERED: POTASSIUM 25 MEQ EFFERV TAB ONE (16:19)
[2019-12-23 17:18] LABS: Barbiturates NEGATIVE (NEGATIVE); Benzodiazepines NEGATIVE (NEGATIVE); Cocaine NEGATIVE (NEGATIVE); METHAMPHETAM NEGATIVE (NEGATIVE); Methadone NEGATIVE (NEGATIVE); Opiates NEGATIVE (NEGATIVE); Phencyclidine NEGATIVE (NEGATIVE); THC Cannibis NEGATIVE (NEGATIVE)
[2019-12-23 17:48] LABS: Urine Bacteria NONE SEEN /HPF (<20); Urine Culture Reflex Order NOT NEEDED; Urine RBC <5 /HPF (NONE SEEN)
[2019-12-23 17:48] LABS: Urine Blood NEGATIVE (NEG); Urine Glucose NEGATIVE (NEG); Urine Protein NEGATIVE (NEG); Urine Specific Gravity 1.015 (1.005-1.030)
--- NOTE | 2019-12-23 18:01 | ER ---
Nurse's Notes [facility] Name: Vanessa Solitario Age: 39 yrs Sex: Female : 1980 Arrival Date: 12/23/2019 Time: 14:46 Bed 25 Private MD: Diagnosis: Unspecified adverse effect of drug or medicament Presentation: 12/22 14:47 Chief complaint: EMS states: Pt with Hx of seizures last episode was about a year ago. Pt stated was started on antibiotics and feels like she is about to have episode of seizure. Coronavirus screen: The patient has NOT traveled to a country currently being monitored by the [facility] within the last 14 days. Ebola Screen: Patient negative for fever greater than or equal to 101.5 degrees Fahrenheit, and additional compatible Ebola Virus Disease symptoms Patient denies exposure to infectious person. Initial Sepsis Screen: Does the patient meet any 2 criteria? No. Patient's initial sepsis screen is negative. Does the patient have a suspected source of infection? No. Patient's initial sepsis screen is negative. Risk Assessment: Do you want to hurt yourself or someone else? Patient reports no desire to harm self or others. 14:47 Method Of Arrival: EMS: [facility] 14:47 Acuity: PABLO 3 15:47 Note symptoms started after taking clindamycin. States she feels amped up on the ll1 inside. Onset of symptoms was December 23, 2019. 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 - Social history:: Smoking status: Patient/guardian denies using. Screenin:51 Abuse screen: Denies threats or abuse. Denies injuries from another. Nutritional screening: No deficits noted. Tuberculosis screening: No symptoms or risk factors identified. 15:46 Fall Risk Secondary diagnosis (15 points) seizures, IV access (20 points). Total Vazquez ll1 Fall Scale indicates Low Risk Score (25-44 pts). Fall prevention measures have been instituted. Side Rails Up X 2 Placed close to Nursing Station. Assessment: 15:42 General: Appears distressed, Behavior is cooperative, restless, Reports Feels like she ll1 might have a seizure. Pain: Denies pain. Neuro: Level of Consciousness is awake, alert, obeys commands, Oriented to person, place, time, situation, Die Cast Technician are equal bilaterally Moves all extremities. Full function Gait is steady, Speech is normal, Facial symmetry appears normal, Reports Feels amped up with inner energy. Cardiovascular: No deficits noted. Respiratory: No deficits noted. GI: No deficits noted. 16:20 Reassessment: Patient appears in no apparent distress at this time. Patient and/or ll1 family updated on plan of care and expected duration. Pain level reassessed. Patient is alert, oriented x 3, equal unlabored respirations, skin warm/dry/pink. 17:20 Reassessment: Patient appears in no apparent distress at this time. No changes from ll1 previously documented assessment. Patient and/or family updated on plan of care and expected duration. Pain level reassessed. Patient is alert, oriented x 3, equal unlabored respirations, skin warm/dry/pink. 18:14 Reassessment: Patient appears in no apparent distress at this time. No changes from 1 previously documented assessment. Patient and/or family updated on plan of care and expected duration. Pain level reassessed. Patient is alert, oriented x 3, equal unlabored respirations, skin warm/dry/pink. Vital Signs: 14:47 BP 155 / 77; Pulse 73; Resp 18; Temp 98; Pulse Ox 98% ; Weight 68.04 kg; Height 5 ft. 4 in. (162.56 cm); 15:49 BP 137 / 77; Pulse 62; Resp 16; Pulse Ox 97% ; ll1 18:17 BP 130 / 76; Pulse 60; Resp 16; Temp 98.0; Pulse Ox 97% ; Pain 0/10; ll1 14:47 Body Mass Index 25.75 (68.04 kg, 162.56 cm) [place] Coma Score: 15:47 Eye Response: spontaneous(4). Verbal Response: oriented(5). Motor Response: obeys ll1 commands(6). Total: 15. ED Course: 14:46 Patient arrived in ED. 14:49 Triage completed. 14:52 Yimi Du, SEJAL is PHCP. pm1 14:52 Harshil Benjamin MD is Attending Physician. pm1 15:01 Carlos Adan, RN is Primary Nurse. ll1 15:13 EKG done, by model technician. reviewed by Yimi Du NP. at1 15:45 Arm band placed on. ll1 15:45 Patient has correct armband on for positive identification. Placed in gown. Bed in low ll1 position. Call light in reach. Side rails up X2. Pulse ox on. NIBP on. Door closed. Lights dimmed. Warm blanket given. 15:46 Seizure precautions initiated. ll1 18:14 IV discontinued, intact, bleeding controlled, No redness/swelling at site. Pressure ll1 dressing applied. 18:15 No provider procedures requiring assistance completed. ll1 Administered Medications: 15:34 Drug: NS 0.9% 1000 ml Route: IV; Rate: 1000 ml; Site: left antecubital; ll1 18:13 Follow up: Response: No adverse reaction; RASS: Alert and Calm (0); IV Status: ll1 Completed infusion 15:34 Drug: Benadryl 25 mg Route: IVP; Site: left antecubital; ll1 16:19 Follow up: Response: No adverse reaction; RASS: Alert and Calm (0) ll1 16:30 Follow up: Response: No adverse reaction; RASS: Drowsy (-1) ll1 16:19 Drug: Potassium Effervescent Tablet 50 mEq Route: PO; ll1 17:12 Follow up: Response: No adverse reaction; RASS: Alert and Calm (0) [facility] Outcome: 17:59 Discharge ordered by MD. pm1 18:16 Discharged to home ambulatory, with friend. ll1 18:16 Condition: improved 18:16 Discharge instructions given to patient, Instructed on discharge instructions, follow up and referral plans. Demonstrated understanding of instructions, follow-up care, medications. 18:18 Patient left the ED. ll1 Signatures: Venus Garibay, it risk advisor EKG Tat1 Yimi Du, SEJAL AREA REPRESENTATIVE pm1 Anusha Lr Carlos Adan, RN RN ll1
--- NOTE | 2019-12-23 18:01 | EDPHYS ---
Physician Documentation [facility] Name: Vanessa Solitario Age: 39 yrs Sex: Female : 1980 Arrival Date: 12/23/2019 Time: 14:46 Bed 25 Private MD: Harshil Wang HPI: 12/22 16:05 This 39 yrs old Female presents to ER via EMS with complaints of Feels like pm1 she is about to have a seizure. 16:05 Seizure Hx: Last seizure: The patient's last seizure greater than 1 year ago and has pm1 discontinued her seizure medications due to lack of seizures. Current symptoms: Currently, the patient is not experiencing any symptoms. Patient had a tooth extracted about 1 week ago and has been taking clindamycin. Patient notices that after taking her clindamycin she "feels energized like she is about to pop." Patient has not had a seizure but feels like she is about to have one. 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 - Social history:: Smoking status: Patient/guardian denies using. ROS: 16:05 Constitutional: Negative for fever, chills, and weight loss, Eyes: Negative for injury, pm1 pain, redness, and discharge, ENT: Negative for injury, pain, and discharge, Neck: Negative for injury, pain, and swelling, Cardiovascular: Negative for chest pain, palpitations, and edema, Respiratory: Negative for shortness of breath, cough, wheezing, and pleuritic chest pain, Abdomen/GI: Negative for abdominal pain, nausea, vomiting, diarrhea, and constipation, Back: Negative for injury and pain, MS/Extremity: Negative for injury and deformity, Skin: Negative for injury, rash, and discoloration. 16:05 : Negative for injury, bleeding, discharge, and swelling, Neuro: Negative for headache, weakness, numbness, tingling, and seizure. Exam: 16:05 Constitutional: This is a well developed, well nourished patient who is awake, alert, pm1 and in no acute distress. Head/Face: Normocephalic, atraumatic. Eyes: Pupils equal round and reactive to light, extra-ocular motions intact. Lids and lashes normal. Conjunctiva and sclera are non-icteric and not injected. Cornea within normal limits. Periorbital areas with no swelling, redness, or edema. 16:05 Chest/axilla: Normal chest wall appearance and motion. Nontender with no deformity. No lesions are appreciated. Cardiovascular: Regular rate and rhythm with a normal S1 and S2. No gallops, murmurs, or rubs. No pulse deficits. Respiratory: Lungs have equal breath sounds bilaterally, clear to auscultation and percussion. No rales, rhonchi or wheezes noted. No increased work of breathing, no retractions or nasal flaring. Abdomen/GI: Soft, non-tender, with normal bowel sounds. No distension or tympany. No guarding or rebound. No evidence of tenderness throughout. Back: No spinal tenderness. No costovertebral tenderness. Full range of motion. Skin: Warm, dry with normal turgor. Normal color with no rashes, no lesions, and no evidence of cellulitis. MS/ Extremity: Pulses equal, no cyanosis. Neurovascular intact. Full, normal range of motion. 16:05 ENT: External ear(s): are unremarkable, Ear canal(s): are normal, TM's: are normal, Dental exam: abscess, is not appreciated, dental caries, diffusely, gum swelling, not appreciated. 16:05 Neuro: Orientation: is normal, Motor: is normal, moves all fours. Vital Signs: 14:47 BP 155 / 77; Pulse 73; Resp 18; Temp 98; Pulse Ox 98% ; Weight 68.04 kg; Height 5 ft. 4 wh in. (162.56 cm); 15:49 BP 137 / 77; Pulse 62; Resp 16; Pulse Ox 97% ; ll1 18:17 BP 130 / 76; Pulse 60; Resp 16; Temp 98.0; Pulse Ox 97% ; Pain 0/10; ll1 14:47 Body Mass Index 25.75 (68.04 kg, 162.56 cm) wh [place] Coma Score: 15:47 Eye Response: spontaneous(4). Verbal Response: oriented(5). Motor Response: obeys ll1 commands(6). Total: 15. MDM: 14:52 Patient medically screened. pm1 16:10 Data reviewed: vital signs. Data interpreted: Pulse oximetry: on room air is 97 %. pm1 Interpretation: normal. 16:47 Medication response: Patient symptoms resolved with Benadryl and IV fluids. pm1 17:57 Counseling: I had a detailed discussion with the patient and/or guardian regarding: the pm1 historical points, exam findings, and any diagnostic results supporting the discharge/admit diagnosis, lab results, the need for outpatient follow up, to return to the emergency department if symptoms worsen or persist or if there are any questions or concerns that arise at home. 12/22 15:02 Order name: CBC with Diff pm1 12/22 15:02 Order name: CMP pm1 12/22 15:02 Order name: Urine Microscopic Only; Complete Time: 17:54 pm1 12/22 15:02 Order name: UDS; Complete Time: 17:26 pm1 12/22 17:01 Order name: Urine Dipstick--Ancillary (enter results); Complete Time: 17:54 bd 12/22 17:01 Order name: Urine --Ancillary (enter results); Complete Time: 17:54 bd 12/22 15:02 Order name: IV Saline Lock; Complete Time: 17:04 pm1 12/22 15:02 Order name: Urine Dipstick-Ancillary (obtain specimen); Complete Time: 17:04 pm1 12/22 15:02 Order name: Urine Test (obtain specimen); Complete Time: 17:04 pm1 12/22 15:02 Order name: EKG; Complete Time: 15:03 pm1 12/22 15:02 Order name: EKG - Nurse/Tech; Complete Time: 18:25 pm1 Administered Medications: 15:34 Drug: NS 0.9% 1000 ml Route: IV; Rate: 1000 ml; Site: left antecubital; ll1 18:13 Follow up: Response: No adverse reaction; RASS: Alert and Calm (0); IV Status: ll1 Completed infusion 15:34 Drug: Benadryl 25 mg Route: IVP; Site: left antecubital; ll1 16:19 Follow up: Response: No adverse reaction; RASS: Alert and Calm (0) ll1 16:30 Follow up: Response: No adverse reaction; RASS: Drowsy (-1) ll1 16:19 Drug: Potassium Effervescent Tablet 50 mEq Route: PO; ll1 17:12 Follow up: Response: No adverse reaction; RASS: Alert and Calm (0) ll1 Disposition: 12/23 07:50 Co-signature as Attending Physician, Harshil Benjamin MD I agree with the assessment and oz plan of care. Disposition: 12/23/19 17:59 Discharged to Home. Impression: Unspecified adverse effect of drug or medicament. - Condition is Stable. - Discharge Instructions: Drug Allergy. - Work release form, Medication Reconciliation Form, Thank You Letter, Antibiotic Education, Prescription Opioid Use form. - Follow up: Emergency Department; When: As needed; Reason: Worsening of condition. Follow up: Private Physician; When: 2 - 3 days; Reason: Recheck today's complaints, Continuance of care, Re-evaluation by your physician. - Problem is new. - Symptoms have improved. Signatures: Dispatcher [employer] EDHarshil Khan MD MD cha Marinas, Patrick, DIPPER FISH DIPPER FISH pm1 Anusha Lr Lynsay, RN RN ll1 Corrections: (The following items were deleted from the chart) 12/22 18:18 17:59 12/23/2019 17:59 Discharged to Home. Impression: Unspecified adverse effect of ll1 drug or medicament. Condition is Stable. Forms are Work release form, Medication Reconciliation Form, Thank You Letter, Antibiotic Education, Prescription Opioid Use. Follow up: Emergency Department; When: As needed; Reason: Worsening of condition. Follow up: Private Physician; When: 2 - 3 days; Reason: Recheck today's complaints, Continuance of care, Re-evaluation by your physician. Problem is new. Symptoms have improved. pm1
[2019-12-23 18:25] VITALS: O2SAT 97
[2019-12-23 18:27] VITALS: BP 130/76; TEMP 98
--- NOTE | 2019-12-24 08:52 | EKG ---
Test Date: 2019-12-23 Test Time: 15:10:21 Rotary Saw Operator: MARY MEASUREMENT RESULTS: Intervals: Rate: 59 PA: 118 QRSD: 94 QT: 414 QTc: 409 [place]: P: 57 PA: 118 QRS: 81 T: 54 INTERPRETIVE STATEMENTS: Sinus bradycardia Otherwise normal ECG Compared to ECG 12/16/2019 13:27:48 Right-axis deviation no longer present Electronically Signed On 12-24-19 08:52:40 CDT by Emmanuel Oneal
== END 2019-12-23 18:18 | disposition home or self-care (01) ==
LOC: ER 14:43
DX: R45.1 Restlessness and agitation (principal); T36.95XA Adverse effect of unspecified systemic antibiotic, initial encounter; Y92.9 Unspecified place or not applicable; Z88.2 Allergy status to sulfonamides
CPT/HCPCS: 36415; 80053; 80307; 81003; 81015; 81025; 85025; 93005; 96361; 96374; 99284; J1200; J7030

== ENCOUNTER 2020-09-14 07:42 | Emergency (ER) | payer SELFPAY ==
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
--- NOTE | 2020-09-14 08:02 | EDPHYS ---
Physician Documentation [facility] Name: Vanessa Solitario Age: 39 yrs Sex: Female : 1980 Arrival Date: 09/14/2020 Time: 07:45 Bed 5 Private MD: ED Physician Kamlesh Alvarez HPI: 09/14 07:58 This 39 yrs old Female presents to ER via Ambulatory with complaints of rn Facial Swelling, Toothache. 07:58 The patient presents with swelling. The problem is located in the right cheek. Onset: rn The symptoms/episode began/occurred this morning. Duration: The symptoms are continuous. Modifying factors: The symptoms are alleviated by nothing, the symptoms are aggravated by nothing. Associated signs and symptoms: Pertinent positives: swelling, Pertinent negatives: fever, inability to eat, redness in area. Severity of symptoms: At their worst the symptoms were mild, in the emergency department the symptoms are unchanged. The patient has experienced similar episodes in the past. Reports several similar episodes is past, wanted to come in before became an abscess, + poor dental health and noticed pain yesterday with swelling that began this morning. No fever. . Historical: - Allergies: 07:56 Sulfa (Sulfonamide Antibiotics); ss 07:56 "anitbiotic that starts with an L"; ss - PMHx: 07:56 Ovarian cyst; Seizures; ss - PSHx: 07:56 Tubal ligation; ss - Immunization history:: Adult Immunizations up to date. - Social history:: Smoking status: Patient denies any tobacco usage or history of. - Family history:: not pertinent. - Hospitalizations: : No recent hospitalization is reported. ROS: 07:58 Constitutional: Negative for fever, chills, and weight loss, Eyes: Negative for injury, rn pain, redness, and discharge, ENT: + dental pain and right cheek swelling Neck: Negative for injury, pain, and swelling, Cardiovascular: Negative for chest pain, palpitations, and edema, Respiratory: Negative for shortness of breath, cough, wheezing, and pleuritic chest pain, Abdomen/GI: Negative for abdominal pain, nausea, vomiting, diarrhea, and constipation, Neuro: Negative for headache, weakness, numbness, tingling, and seizure. Exam: 07:58 Constitutional: This is a well developed, well nourished patient who is awake, alert, rn and in no acute distress. Head/Face: Atraumatic. ENT: Poor general dentition without intraoral abscess, + right cheek with swelling, soft, no fluctuance, no involvement of periocular area. Neck: Trachea midline, no masses palpated, and no cervical lymphadenopathy. Vital Signs: 07:54 BP 155 / 106; Pulse 87; Resp 17; Temp 98.1(TE); Pulse Ox 98% on R/A; Weight 77.11 kg; ss Height 5 ft. 5 in. (165.10 cm); Pain 7; 07:54 Body Mass Index 28.29 (77.11 kg, 165.10 cm) ss MDM: 07:53 Patient medically screened. rn 07:58 Differential diagnosis: dental caries, facial cellulitis, buccal space cellulitis. Data rn reviewed: vital signs, nurses notes, old medical records, and as a result, I will discharge patient. Counseling: I had a detailed discussion with the patient and/or guardian regarding: the historical points, exam findings, and any diagnostic results supporting the discharge/admit diagnosis, the need for outpatient follow up, to return to the emergency department if symptoms worsen or persist or if there are any questions or concerns that arise at home. Special discussion: I discussed with the patient/guardian in detail that at this point there is no indication for admission to the hospital. It is understood, however, that if the symptoms persist or worsen the patient needs to return immediately for re-evaluation. Based on the history and exam findings, there is no indication for further emergent testing or inpatient evaluation. I discussed with the patient/guardian the need to see a dentist for further evaluation of the symptoms. Administered Medications: No medications were administered Disposition: 09/14/20 08:01 Discharged to Home. Impression: Dental caries, Facial cellulitis. - Condition is Stable. - Discharge Instructions: Cellulitis, Adult, Dental Pain. - Prescriptions for Clindamycin HCl 300 mg Oral Capsule - take 1 capsule by ORAL route every 6 hours for 10 days; 40 capsule. - Medication Reconciliation Form, Thank You Letter, Antibiotic Education, Prescription Opioid Use form. - Follow up: Private Physician; When: As needed; Reason: Recheck today's complaints, Re-evaluation by your physician. - Problem is new. - Symptoms are unchanged. Signatures: Bulmaro, TRACI Bateman RN, Roman, MD MD rn Smirch, Shelby, RN RN ss Corrections: (The following items were deleted from the chart) 08:07 08:01 09/14/2020 08:01 Discharged to Home. Impression: Dental caries; Facial sv cellulitis. Condition is Stable. Forms are Medication Reconciliation Form, Thank You Letter, Antibiotic Education, Prescription Opioid Use. Follow up: Private Physician; When: As needed; Reason: Recheck today's complaints, Re-evaluation by your physician. Problem is new. Symptoms are unchanged. rn
--- NOTE | 2020-09-14 08:02 | ER ---
Nurse's Notes [facility] Name: Vanessa Solitario Age: 39 yrs Sex: Female : 1980 Arrival Date: 09/14/2020 Time: 07:45 Bed 5 Private MD: Diagnosis: Dental caries;Facial cellulitis Presentation: 09/14 07:54 Chief complaint: Patient states: dental pain and swelling to R side of face that began ss this morning. Coronavirus screen: Client denies travel out of the [place] in the last 14 days. Ebola Screen: Patient denies exposure to infectious person. Patient denies travel to an Ebola-affected area in the 21 days before illness onset. Initial Sepsis Screen: Does the patient meet any 2 criteria? No. Patient's initial sepsis screen is negative. Does the patient have a suspected source of infection? Yes: Other: possible dental infection. Risk Assessment: Do you want to hurt yourself or someone else? Patient reports no desire to harm self or others. Onset of symptoms was September 14, 2020. 07:54 Method Of Arrival: Ambulatory ss 07:54 Acuity: PABLO 3 ss Historical: - Allergies: 07:56 Sulfa (Sulfonamide Antibiotics); ss 07:56 "anitbiotic that starts with an L"; ss - PMHx: 07:56 Ovarian cyst; Seizures; ss - PSHx: 07:56 Tubal ligation; ss - Immunization history:: Adult Immunizations up to date. - Social history:: Smoking status: Patient denies any tobacco usage or history of. - Family history:: not pertinent. - Hospitalizations: : No recent hospitalization is reported. Screenin:06 Abuse screen: Denies threats or abuse. Denies injuries from another. Nutritional sv screening: No deficits noted. Tuberculosis screening: No symptoms or risk factors identified. Fall Risk None identified. Assessment: 07:55 General: Appears in no apparent distress. uncomfortable, well developed, Behavior is sv calm, cooperative, appropriate for age. Pain: Complains of pain in right zygomatic area, right cheek and right mandible Pain currently is 7 out of 10 on a pain scale. Quality of pain is described as pressure, Is continuous. Neuro: Level of Consciousness is awake, alert, obeys commands, Oriented to person, place, time, situation, Moves all extremities. Full function Gait is steady. Respiratory: Respiratory effort is even, unlabored, Respiratory pattern is regular, symmetrical. EENT: Reports pain. Derm: Skin is pink, warm \\T\\ dry. Vital Signs: 07:54 BP 155 / 106; Pulse 87; Resp 17; Temp 98.1(TE); Pulse Ox 98% on R/A; Weight 77.11 kg; ss Height 5 ft. 5 in. (165.10 cm); Pain 7/10; 07:54 Body Mass Index 28.29 (77.11 kg, 165.10 cm) ED Course: 07:45 Patient arrived in ED. ds1 07:49 Bhavana Chamberlain, RN is Primary Nurse. sv 07:53 Kamlesh Alvarez MD is Attending Physician. rn 07:56 Triage completed. ss 07:56 Arm band placed on right wrist. ss 08:06 Patient has correct armband on for positive identification. Bed in low position. sv 08:06 No provider procedures requiring assistance completed. Patient did not have IV access sv during this emergency room visit. Administered Medications: No medications were administered Outcome: 08:01 Discharge ordered by . rn 08:06 Discharged to home ambulatory. sv 08:06 Condition: stable 08:06 Discharge instructions given to patient, Instructed on discharge instructions, follow up and referral plans. medication usage, Demonstrated understanding of instructions, follow-up care, medications, Prescriptions given X 1. 08:07 Patient left the ED. sv Signatures: Bhavana Chamberlain, RN TRACI Tonja Christina ds1 [facility]lesh [facility]varez MD MD rn [facility]
[2020-09-14 08:13] VITALS: BP 155/106; TEMP 98.1; O2SAT 98
== END 2020-09-14 08:07 | disposition home or self-care (01) ==
LOC: ER 07:42
DX: K02.9 Dental caries, unspecified (principal); L03.211 Cellulitis of face; Z88.1 Allergy status to other antibiotic agents; Z88.2 Allergy status to sulfonamides
CPT/HCPCS: 99282

== ENCOUNTER 2020-11-22 12:34 | Emergency (ER) | payer SELFPAY ==
--- OUTSIDE RECORDS SUMMARY | 2020-11-22 12:36 | XMS REPORT | Continuity of Care Document ---
:1980 Author Organization [facility] Care Team Providers Name Role Phone [facility] Unavailable Un available Problems Problem Status Onset Classification Date Comments Sourc e Date Reported AUTO/PED Active [address] L TIBFIB FX Active [address] LIFE FLIGHT Active [address] Unspecified 01/18/2017 Merlin s fracture of [...] [place] mg/0.4 mL SUB-Q, 2017 Medical subcutaneous [id number], X 21 Cent er solution day, # [...] 0 Refill(s) Zofran Notes: (Same No Longer [facility] as: Zofran) Active 2017 Medical MEDICATION Center WASTE Product Size: 4 mg Product Wasted: ___ mg Bacitracin 0.5 Notes: (Same No Longer [facility] UNT/MG / As: Polysporin) Active 2017 Medical Polymyxin B 10 Center UNT/MG Topical Ointment potassium Notes: (Same Inactive [facility] chloride 20 mEq as: K-Dur 20) 2017 Ut dical oral tablet, "Do Not Crush" Cent er extended release With food and full glass of water naproxen sodium Notes: (Same Inactive [facility] as: Anaprox DS) 2017 Medical Take with [place] food. tramadol Notes: Not to No Longer [facility] s hydrochloride 50 exceed Active 2017 Medical MG Oral Tablet 400mg/day. Center (Same As: Ultram) Methocarbamol Notes: (Same No Longer [place] as:Robaxin) Active 2017 [facility] gabapentin 300 Notes: (Same No Longer [facility] MG Oral Capsule as: Neurontin) Active 2017 [facility] Acetaminophen Notes: [place] acetaminophen Active 2017 Medical 4000 mg/day (4 Center gm/day). (Same as: Tylenol Extra Strength) Ancef + sodium Notes: (Same No Longer [place] chloride 0.9% As: Ancef, Active 2017 Medical INJ 100 mL Kefzol) Center MEDICATION WASTE Product Size: 1000 mg Product Wasted: ___ mg Naloxone Notes: (Same Inactive [place] as: Narcan) 2017 [facility] Center Ondansetron Notes: (Same Inactive [place] as as: Zofran) 2017 Medical MEDICATION Center WASTE Product Size: 4 mg Product Wasted: ___ mg Flumazenil Notes: (Same [place] as: Romazicon) 2017 [facility] Center Oxycodone Notes: (Same Inactive [place] as: Roxicodone) 2017 [facility] Hydromorphone Notes: (Same Inactive [place] as: Dilaudid) 2016 [facility] ondansetron Route: IV, Drug Inactive [place] (ANES) form: INJ, 2016 Medical ONCE, Stop Center date: 01/13/17 12:50:00 CDT glycopyrrolate Route: IV, Drug Inactive [facility] (ANES) form: INJ, 2016 Medical ONCE, Stop Center date: 01/13/17 12:50:00 CDT neostigmine Route: IV, Drug Inactive [facility] (ANES) form: INJ, 2016 Medical ONCE, Stop Center date: 01/13/17 12:50:00 CDT hydromorphone Route: IV, Drug Inactive H [place] (ANES) form: INJ, 2016 Medical ONCE, Stop Center date: 01/13/17 11:35:00 CDT fentaNYL (ANES) Route: IV, Drug Inactive [facility] form: INJ, 2016 Medical ONCE, Stop Center date: 01/13/17 11:00:00 CDT dexamethasone Route: IV, Drug Inactive H [place] (ANES) form: INJ, 2016 Medical ONCE, Stop Center date: 01/13/17 11:00:00 CDT midazolam (ANES) Route: IV, Drug Inactive [place] form: SOLN, 2016 Medical ONCE, Stop Center [...] 11:05:00 CDT Lovenox Notes: (Same No Longer [facility] as: Lovenox) Active 2017 Medical Center D5W 1/2NS 1,000 1,000 mL, Rate: No Longer [facility] mL 125 ml/hr, Active 2016 Medical Infuse [...] Wasted: ___ mg Morphine Notes: (Same Inactive [facility] as:MORPhine 2017 Medical Sulfate) Center Docusate Notes: (Same No Longer [facility] as: Colace) (Do Active 2016 Medical Not Crush) Center Acetaminophen Notes: Do not Inactive [facility] exceed 4 2017 Medical gm/day. (Same Center as: Tylenol) Zofran 4 mg, Route: Inactive [facility] IVP, Drug form: 2017 Medical INJ, ONCE, kg, Center Priority: STAT, Start date: 01/13/17 2:34:00 CDT, Stop date: 01/13/17 2:34:00 CDT Epinephrine 0.01 1 mL, Route: Inactive [facility] [place] MG/ML / SUB-Q, Drug 2017 Medical Lidocaine Form: SOLN, kg, Center Hydrochloride 10 ONCE, Start MG/ML Injectable date: 01/13/17 Solution 2:16:00 CDT, Stop date: 01/13/17 2:16:00 CDT Dilaudid 1 mg, Route: Inactive [facility] IVP, ONCE, kg, 2017 Medical Priority: STAT, Center Start date: 01/13/17 0:28:00 CDT, Stop date: 01/13/17 0:28:00 CDT iodixanol 150 mL, Route: Inactive [place] as IVP, Drug Form: 2017 Medical SOLN, kg, [place] ONCALL, STAT, Start date: 01/13/17 0:27:00 CDT, Duration: 1 doses or times, Dose = 2.2ml/kg, Max dose = 150ml -- "To be infused by Radiology Staff ONLY" Sodium Chloride 1,000 mL, 1,000 Inactive [facility] 0.154 MEQ/ML ml/hr, Infuse [facility] Medic al Injectable Over: 1 hr, [place] Solution Route: IV, ONCE, Priority: STAT, , Start date: 01/12/17 23:39:00 CDT, Duration: 1 doses or times, Stop date: 01/12/17 23:39:00 CDT Morphine 4 mg, Route: Inactive 01/13[facility] IVP, Drug form: 2016 Medical INJ, ONCE, kg, [place] Priority: STAT, Start date: 01/12/17 23:39:00 CDT, Stop date: 01/12/17 23:39:00 CDT Zofran 4 mg, Route: Inactive 01/13[facility] IVP, Drug form: 2016 Medical INJ, ONCE, kg, [place] Priority: STAT, Start date: 01/12/17 23:39:00 CDT, Stop date: 01/12/17 23:39:00 CDT Saline Flush Notes: (Same [place] Longer [place] 0.9% as: BD Active 2016 Medical Posiflush) Center Allergies, Adverse Reactions, Alerts Substance Category Reaction Severity Reaction Status Date Comments S ource type Reported Bactrim Assertion Drug Active [facility] as allergy [facility] Center Immunizations Immunization Date Given Site Status Last Comments Source Updated diphtheria/pertus 01/13/2017 Left completed Alvaro Mcmanus sis, acel/tetanus deltoid Me dical adult Center Results Order Name Results Value Reference Date Interpretation Comments Tiffanie rce Range CHEM PANEL A/G Ratio 0.8 0.7 - 1.6 01/14 [facility] CHEM PANEL AGAP 11.4 10.0 - 01/14 20.0 [facility] CHEM PANEL B/C Ratio 4 6 - 25 01/14 [facility] CHEM PANEL Globulin 3.3 2.7 - 4.2 01/14 [facility] CHEM PANEL eGFR 122 01/14 Result Comment: The [facility] eGFR is Center calculated using the CKD-EPI [...] Glucose Lvl 89 70 - 99 01/14 [facility] CHEM PANEL Total Protein 6.0 6.4 - 8.4 01/14 [facility] CHEM PANEL Calcium Lvl 7.7 8.5 - 10.5 01/14 [facility] CHEM PANEL BUN 2 7 - 22 01/14 2016 [facility] CHEM PANEL Chloride Lvl 108 95 - 109 01/14 [facility] CHEM PANEL CO2 24 24 - 32 01/14 2016 [facility] CHEM PANEL Potassium Lvl 3.4 3.5 - 5.1 01/14 [facility] CHEM PANEL Bili Total 0.4 0.2 - 1.3 01/14 [facility] CHEM PANEL Alk Phos 72 39 - 136 01/14 [facility] CHEM PANEL Creatinine 0.52 0.50 - 04 [place] Lvl 1.40 /2016 [facility] CHEM PANEL Sodium Lvl 140 135 - 145 04 [facility] CHEM PANEL Albumin Lvl 2.7 3.5 - 5.0 04 [facility] CHEM PANEL ALT 24 0 - 65 04 [facility] CHEM PANEL AST 44 0 - 37 04 [facility] CHEM PANEL Magnesium Lvl 1.8 1.8 - 2.4 01/14 [facility] CHEM PANEL Phosphorus 2.2 2.5 - 4.5 04 [facility] HEMATOLOGY WBC 11.2 3.7 - 10.4 01/14 [facility] HEMATOLOGY RBC 3.84 4.20 - 01/14 5.40 [facility] HEMATOLOGY MCV 88.4 80.0 - 01/14 98.0 [facility] HEMATOLOGY Hgb 11.3 12.0 - 01/14 16.0 [facility] HEMATOLOGY MCH 29.5 27.0 - 04 31.0 [facility] HEMATOLOGY Hct 33.9 36.0 - 01/14 48.0 [facility] HEMATOLOGY Platelet 301 133 - 450 01/14 [facility] HEMATOLOGY MPV 8.7 7.4 - 10.4 01/14 [facility] HEMATOLOGY MCHC 33.4 32.0 - 01/14 36.0 [facility] HEMATOLOGY RDW 13.5 11.5 - 01/14 14.5 [facility] HEMATOLOGY Basophils 0.4 0.0 - 1.0 01/14 [facility] HEMATOLOGY Segs-Bands # 6.9 1.5 - 8.1 01/14 [facility] HEMATOLOGY Lymphocytes # 2.6 1.0 - 5.5 01/14 [facility] HEMATOLOGY Monocytes # 1.6 0.0 - 0.8 01/14 [facility] HEMATOLOGY Eosinophils # 0.1 0.0 - 0.5 01/14 [facility] HEMATOLOGY Segs 61.9 45.0 - 01/14 75.0 [facility] HEMATOLOGY Lymphocytes 23.3 20.0 - 04 [place] 40.0 /2016 [facility] HEMATOLOGY Eosinophils 0.5 0.0 - 4.0 01/14 [place] /[place] [facility] HEMATOLOGY Monocytes 13.9 2.0 - 12.0 01/14 [facility] /2016 [facility] Center DRUG SCREEN U Cocaine Scr Negative [...] Scr Negative Negative 01/13 [place] *NA* [facility] (01/13/17 5:36 AM) Center DRUG SCREEN UDS Note See Note 01/13 [facility] (01/13/17 5:36 AM) [facility] [place] DRUG SCREEN U Phencyc Scr Negative Negative 01/13 [place] *NA* [facility] (01/13/17 5:36 AM) Center DRUG SCREEN U Opiate Scr Positive Negative 01/13 [place] *ABN* [facility] (01/13/17 5:36 AM) Center URINE AND UA Sq Epi Few /LPF Few /LPF 01/13 [facility] STOOL /2016 [facility] URINE AND UA Bacteria Few /HPF None Seen 01/13 [place] STOOL /HPF /2016 [facility] URINE AND UA Mucus Few /LPF None Seen 01/13 [facility] STOOL /LPF /2016 [facility] URINE AND UA WBC 17 0 - 5 01/13 [facility] /2016 [facility] URINE AND UA RBC 3 0 - 2 01/13 [facility] STOOL /2016 [facility] URINE AND UA Leuk Est Negative Negative 01/13 [facility] (01/13/17 5:36 AM) /2016 [facility] URINE AND UA Blood Small Negative 01/13 [place] STOOL *ABN* /2016 Medical (01/13/17 5:36 AM) Center URINE AND UA Nitrite Positive Negative 01/13 [facility] *ABN* /2016 [facility] (01/13/17 5:36 AM) [place] URINE AND UA 0.2 0.1 - 1.0 01/13 [facility] Urobilinogen /2016 [facility] URINE AND UA Ketones 15 Negative 01/13 [facility] *ABN* [facility] (01/13/17 5:36 AM) [place] URINE AND UA Glucose Negative Negative 01/13 [facility] (01/13/17 5:36 AM) [facility] [place] URINE AND UA Bili Negative Negative 01/13 [facility] *NA* /2016 [facility] (01/13/17 5:36 AM) [place] URINE AND UA Protein 30 mg/dL Negative 01/13 [facility] mg/dL [facility] URINE AND UA Turbidity Clear Clear 01/13 [facility] (01/13/17 5:36 AM) [facility] URINE AND UA pH 5.5 5.0 - 8.0 01/13 [facility] /2016 [facility] URINE AND UA Spec Grav 1.010 <=1.030 01/13 [facility] /2016 [facility] URINE AND UA Color Yellow Yellow 01/13 [facility] *NA* /2016 [facility] (01/13/17 5:36 AM) [place] CHEM PANEL Lactic Acid 1.3 0.5 - 2.2 01/13 [place] L[place] [facility] ELECTROLYTES AGAP 14.7 10.0 - 01/13 [facility] 20.0 [facility] ELECTROLYTES eGFR 65 01/13 Result Comment: The Medical eGFR is Center calculated [...] Chloride Lvl 103 95 - 109 01/13 [facility] ELECTROLYTES CO2 21 24 - 32 01/13 [facility] ELECTROLYTES Potassium Lvl 3.7 3.5 - 5.1 01/13 2016 [facility] ELECTROLYTES Calcium Lvl 8.7 8.5 - 10.5 01/13 [facility] ELECTROLYTES BUN 5 7 - 22 01/13 2016 [facility] ELECTROLYTES Glucose Lvl 147 70 - 99 01/13 a [facility] ELECTROLYTES Creatinine 0.66 0.50 - 01/13 [facility] Lvl 1.40 [facility] ELECTROLYTES Sodium Lvl 135 135 - 145 01/13 [facility] ENDOCRINOLOG S Preg Negative Negative 01/13 [facility] Y (01/12/17 11:40 PM) /2016 [facility] HEMATOLOGY Basophils # 0.1 0.0 - 0.2 01/13 [facility] HEMATOLOGY Eosinophils # 0.2 0.0 - 0.5 01/13 [facility] HEMATOLOGY Eosinophils 0.7 0.0 - 4.0 01/13 [facility] HEMATOLOGY Basophils 0.4 0.0 - 1.0 01/13 [facility] HEMATOLOGY Segs-Bands # 17.0 1.5 - 8.1 01/13 [facility] HEMATOLOGY Lymphocytes # 2.9 1.0 - 5.5 01/13 [facility] HEMATOLOGY Monocytes # 1.7 0.0 - 0.8 01/13 a s [facility] HEMATOLOGY Segs 78.0 45.0 - 01/13 [place] 75.0 [facility] HEMATOLOGY Lymphocytes 13.3 20.0 - 01/13 [place] 40.0 [facility] HEMATOLOGY Monocytes 7.6 2.0 - 12.0 01/13 2016 [facility] HEMATOLOGY Estimated % 0.6 0.0 - 7.5 01/13 [place] L[place] [facility] HEMATOLOGY G-value Rapid 12.9 5.0 - 11.6 01/13 [place] [facility] HEMATOLOGY Max Amplitude 72 52 - 71 01/13 [place] [facility] HEMATOLOGY Angle Rapid 79 64 - 80 01/13 [facility] HEMATOLOGY K-time Rapid 0.8 0.6 - 2.3 01/13 [place] [facility] HEMATOLOGY R-time Rapid 0.6 0.4 - 0.7 01/13 [place] [facility] HEMATOLOGY ACT (TEG) 105 86 - 118 01/13 [facility] HEMATOLOGY [place] 0.5 01/13 [facility] HEMATOLOGY Platelet 393 133 - 450 01/13 [facility] HEMATOLOGY MPV 8.5 7.4 - 10.4 01/13 [facility] HEMATOLOGY MCV 88.4 80.0 - 01/13 [facility] 98.0 [facility] HEMATOLOGY MCH 30.3 27.0 - 01/13 [facility] 31.0 [facility] HEMATOLOGY MCHC 34.3 32.0 - 01/13 [facility] 36.0 [facility] HEMATOLOGY RDW 13.4 11.5 - 01/13 [facility] 14.5 [facility] HEMATOLOGY Hct 42.7 36.0 - 01/13 [facility] 48.0 [facility] HEMATOLOGY WBC 21.8 3.7 - 10.4 01/13 [facility] HEMATOLOGY RBC 4.83 4.20 - 01/13 [facility] 5.40 [facility] HEMATOLOGY Hgb 14.6 12.0 - 01/13 [facility] 16.0 [facility] TOXICOLOGY Etoh (%) <0.003 01/[address] [place] [address] TOXICOLOGY Ethanol Lvl <3 01/13 [facility] [address] [place] [address] BLOOD BANK Antibody Scrn Negative 01/13 [facility] as RESULTS (01/12/17 11:40 PM) /2016 [facility] BLOOD BANK ABO/Rh O NEG 01/13 [facility] RESULTS /2016 [facility] Pathology Reports No Data Provided for This Section Diagnostic Reports Report Value Date Source Ankle 2 views DX EXAM: XR RIGHT ANKLE 3 VIEWS 01/13/2017 [facility] Medical DATE: 01/13/2017 10:[address] INDICATION: POST OP - ALIGNMENT COMPARISON: Right ankle radiographs from [facility] TECHNIQUE: AP, lateral and oblique [...] EXAM: LEFT Forearm 2 views DX 01/13/2017 [facility] EXAM: LEFT Wrist complete DX [...] EXAM: RIGHT Hand 3 views DX 01/13/2017 [facility] Medical DATE: 01/13/2017 1:14 AM [...] EXAM: LEFT Forearm 2 views DX 01/13/2017 [facility] Medical EXAM: LEFT Wrist complete DX [...] EXAM: LEFT Forearm 2 views DX 01/13/2017 [facility] EXAM: LEFT Wrist complete DX Darlene ter EXAM: LEFT Hand 3 views DX DATE: 01/13/2017 1:14 AM CDT INDICATION: fracture - fracture ADDITIONAL INFORMATION: '36 yo F brought in by Calli Bowser s/p auto/ped/.' COMPARISON: None. TECHNIQUE: AP and [...] EXAM: XR RIGHT KNEE 3 VIEWS 01/13/2017 [facility] DX DATE: 01/13/2017 and 0114 hours C [...] EXAM: XR RIGHT ANKLE 3 VIEWS 01/13/2017 [facility] DATE: 01/13/2017 at 0114 hours Ce nter [...] EXAM: XR RIGHT ANKLE 2 VIEWS 01/13/2017 [facility] DATE: 01/13/2017 at 0046 hours Ce nter [...] contrast CT CT HEAD WITHOUT CONTRAST 01/13/2017 [facility] DATE: 01/13/2017 at 12:[address] [...] Chest/Abdomen/Pelvis EXAM: CT CHEST WITH CONTRAST 01/13/2017 [facility] [place] [facility] IV contrast CT EXAM: CT ABDOMEN AND [...] EXAM: CT CERVICAL SPINE WITHOUT CONTRAST 01/13 [facility] contrast CT (ER) DATE: 01/12/2017 at 0031 [...] EXAM: XR RIGHT FEMUR 2 VIEWS 01/12/2017 [facility] EXAM: XR RIGHT TIBIA-FIBULA 2 VIEWS Center [...] DX EXAM: XR CHEST 1 VIEW 01/12/2017 [facility] edical DATE: 01/12/2017 11:26 PM CDT [...] DX EXAM: XR PELVIS 1 VIEW 01/12/2017 [facility] DATE: 01/12/2017 11:[address] [...] EXAM: XR RIGHT FEMUR 2 VIEWS 01/12/2017 [facility] EXAM: XR RIGHT TIBIA-FIBULA 2 VIEWS Center [...] EXAM: XR RIGHT FEMUR 2 VIEWS 01/12/2017 [facility] EXAM: XR RIGHT TIBIA-FIBULA 2 VIEWS Center [...] EXAM: XR RIGHT FEMUR 2 VIEWS 01/12/2017 [facility] DX EXAM: XR RIGHT TIBIA-FIBULA 2 VIEWS [...] Comments Source Systolic (mm Hg) 116 01/15/2017 [facility] Diastolic (mm Hg) 65 01/15/2017 [facility] Heart Rate 71 01/15/2017 [facility] Respitory Rate 18 01/15/2017 [facility] Temperature Oral (F) 98.2 F 01/15/2017 [facility] Systolic (mm Hg) 124 01/15/2017 [facility] Diastolic (mm Hg) 79 01/15/2017 [facility] Respitory Rate 16 01/15/2017 [facility] Heart Rate 79 01/15/2017 [facility] Temperature Oral (F) 98.1 F 01/15/2017 [facility] Systolic (mm Hg) 120 01/15/2017 [facility] Diastolic (mm Hg) 76 01/15/2017 [facility] Respitory Rate 18 01/15/2017 [facility] Heart Rate 87 01/15/2017 [facility] Temperature Oral (F) 98.3 F 01/15/2017 [facility] Height 162.56 cm 01/13/2017 [facility] BMI Calculated 27.52 01/13/2017 [facility] Weight 72.727 01/13/2017 [facility] Encounters Location Location Encounter Encounter Reason Attending ADM DC Stat us Source Details Type Number For Provider Date Date Visit [facility] Inpatient [id number] Marci Dominguez 01/13 01/15 [facility] Procedures No Data Provided for This Section Assessment and Plan Assessment and Plan Date Source Extracted from:Title: ORS progress note 01/15/2017 [facility] Author: Davdi Min MD Date: 01/15/17 ORS Progress Note [...] with Dr. Kidd in 2 weeks. Call [phone] for an appointment. -Please page ORS senior sales operations analyst with questions or concerns or call [phone] for emergencies David Min MD PGY-1 MSO [id number] Pager # [phone] Extracted from:Title: History and Physical Author: Alessandra [...] No history of active cardiac conditions, no NC,no history of heart failurenodysrhythmias according to the [...] call with any concerns and or questions . Alessandra Jones M.D. Internal Medicine- Hospitalist Orders: [...] of Service: 01/13/17 Consulting Physician: Dr. Jose Soliatrio [facility] Attending: Bernabe CC: R ankle pain [...] hand dominant. 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 Family History: Ovarian [place], [place] Vitals: Systolic Blood Pressure : 138 mmHg [...] History Date Source Social History TypeResponse 01/13/2017 [facility] Substance Abuse Use: None. Previous Treatment: [...]
[2020-11-22] MEDS ORDERED: DIPHENHYDRAMINE 50 MG/ML VIAL ONE (14:00)
[2020-11-22] MEDS ORDERED: METOCLOPRAMIDE 10 MG/2mL INJ ONE (14:00)
[2020-11-22] MEDS ORDERED: FAMOTIDINE 20 MG/2 ML VIAL IV ONE (14:00)
[2020-11-22] MEDS ORDERED: NA CHLORIDE 0.9% 1,000 ML ONE (14:00)
[2020-11-22 14:01] LABS: Absolute Lymphocytes (CBC) 1.4 K/uL (0.7-4.9); Basophils % 0.6 % (0-1.3); Hematocrit 44.9 % (36.0-45.0); Lymphocytes % 10.5 % (15.3-44.8)
[2020-11-22 14:14] LABS: Albumin 3.8 g/dL (3.4-5.0); Bilirubin Direct 0.2 mg/dL (0-0.2); Bilirubin Total 0.5 mg/dL (0.2-1.0); Potassium 3.5 mmol/L (3.5-5.1); Protein, Total 7.9 g/dL (6.4-8.2)
--- NOTE | 2020-11-22 16:09 | RAD REPORT ---
EXAM DESCRIPTION: CTAbdomen Pelvis W Contrast - 11/22/2020 4:01 pm CLINICAL HISTORY: Abdominal pain. ABD PAIN COMPARISON: Abdomen Pelvis W Contrast dated 12/13/2019; Abdomen Pelvis W Contrast dated 02/21/2016; CT ABD PELVIS W CONTRAST dated 06/04/2012; CT ABD PELVIS W CONTRAST dated 01/26/2008 TECHNIQUE: Biphasic CT imaging of the abdomen and pelvis was performed with 100 ml non-ionic IV cont rast. All CT scans are performed using dose optimization technique as appropriate and may include automated exposure control or mA/KV adjustment according to patient size. FINDINGS: The lung bases are clear. The liver, spleen, pancreas, adrenal glands and kidneys are within normal limits. No bowel obstruction, free air, free fluid or abscess. The appendix is normal. No evidence of signi ficant lymphadenopathy. No suspicious bony findings. No significant change in bilateral cystic ovarian/ adnexal findings sinc e comparative study, larger on the left 5 cm. IMPRESSION: No acute intra-abdominal or pelvic finding.
--- NOTE | 2020-11-22 16:59 | EDPHYS ---
Physician Documentation [facility] Name: Vanessa Solitario Age: 40 yrs Sex: Female : 1980 Arrival Date: 11/22/2020 Time: 12:34 Bed 7 Private MD: ED Physician Kamlesh Alvarez HPI: 11/22 13:19 This 40 yrs old Female presents to ER via Ambulatory with complaints of jmm Abdominal Pain, Nausea/Vomiting. 13:19 The patient presents with abdominal pain. Onset: The symptoms/episode began/occurred jmm gradually, this morning. The symptoms do not radiate. Associated signs and symptoms: Pertinent positives: nausea and vomiting. The symptoms are described as achy. Modifying factors: The symptoms are alleviated by nothing, the symptoms are aggravated by food. The patient has experienced a previous episode. Patient states pain is similar to previous episode of intrabdominal abscess. Complains of fever, chills, vomiting. Denies recent travel or infectious exposure. . 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 - Social history:: Smoking status: . ROS: 13:19 Cardiovascular: Negative for chest pain, palpitations, and edema, Respiratory: Negative jmm for shortness of breath, cough, wheezing, and pleuritic chest pain. 13:19 Constitutional: Positive for body aches, chills, fever. 13:19 Abdomen/GI: Positive for abdominal pain, nausea and vomiting. 13:19 All other systems are negative. Exam: 13:19 Constitutional: This is a well developed, well nourished patient who is awake, alert, jmm and in no acute distress. Head/Face: atraumatic. Eyes: EOMI, no conjunctival erythema appreciated ENT: Moist Mucus Membranes Neck: Trachea midline, Supple Chest/axilla: Normal chest wall appearance and motion. Cardiovascular: Regular rate and rhythm. No edema appreciated Respiratory: Normal respirations, no respiratory distress appreciated 13:19 Skin: General appearance color normal MS/ Extremity: Moves all extremities, no obvious deformities appreciated, no edema noted to the lower extremities Neuro: Awake and alert, normal gait Psych: Behavior is normal, Mood is normal, Patient is cooperative and pleasant 13:19 Abdomen/GI: Inspection: abdomen appears normal, Bowel sounds: normal, Palpation: soft, mild abdominal tenderness, in the left lower quadrant. Vital Signs: 12:48 BP 113 / 88; Pulse 65; Resp 16; Temp 96.9; Pulse Ox 98% on R/A; Weight 77.11 kg; Height iw 5 ft. 4 in. (162.56 cm); Pain 8/10; 15:15 BP 150 / 78; Pulse 55; Resp 16 S; Pulse Ox 98% on R/A; jd3 17:10 BP 134 / 89; Pulse 60; Resp 15; Pulse Ox 98% ; iw 12:48 Body Mass Index 29.18 (77.11 kg, 162.56 cm) iw MDM: 13:17 Patient medically screened. [facility] 16:57 Data reviewed: vital signs, nurses notes. Counseling: I had a detailed discussion with sarthak the patient and/or guardian regarding: the historical points, exam findings, and any diagnostic results supporting the discharge/admit diagnosis, lab results, radiology results, the need for outpatient follow up, to return to the emergency department if symptoms worsen or persist or if there are any questions or concerns that arise at home. ED course: Patient is alert and non toxic in appearance in the ED. Symptoms relieved in the ED. Patient advised to follow up with GI and OBGYN for reevaluation. Patient is otherwise given strict return precautions. Patient understood and agrees with the plan of care. . 11/22 13:18 Order name: Basic Metabolic Panel; Complete Time: 14:33 [facility] 11/22 13:18 Order name: CBC with Diff [facility] 11/22 13:18 Order name: Hepatic Function; Complete Time: 14:33 [facility] 11/22 13:18 Order name: Lipase; Complete Time: 14:33 [facility] 11/22 15:36 Order name: CT Abd/Pelvis - IV Contrast Only; Complete Time: 16:10 [facility] 11/22 17:02 Order name: Urine Dipstick--Ancillary (enter results) em1 11/22 13:18 Order name: IV Saline Lock; Complete Time: 13:45 [facility] 11/22 13:18 Order name: Labs collected and sent; Complete Time: 13:45 [facility] 11/22 13:18 Order name: Urine Dipstick-Ancillary (obtain specimen); Complete Time: 17:01 [facility] 11/22 13:18 Order name: Urine Test (obtain specimen); Complete Time: 17:01 [facility] 11/22 16:33 Order name: [facility]. Order: need urine for dispo; Complete Time: 17:00 [facility] Administered Medications: 13:53 Drug: NS 0.9% 1000 ml Route: IV; Rate: 1 bolus; Site: right wrist; jd3 14:45 Follow up: Response: No adverse reaction; IV Status: Completed infusion; IV Intake: iw 1000ml 13:54 Drug: Reglan 10 mg Route: IVP; Site: right wrist; jd3 14:30 Follow up: Response: No adverse reaction; Pain is decreased iw 13:54 Drug: diphenhydrAMINE 25 mg Route: IVP; Site: right wrist; jd3 14:30 Follow up: Response: No adverse reaction 13:54 Drug: Pepcid 20 mg Route: IVP; Site: right wrist; jd3 14:30 Follow up: Response: No adverse reaction Disposition: 17:24 Co-signature as Attending Physician, Kamlesh Alvarez MD. rn Disposition: 11/22/20 16:58 Discharged to Home. Impression: Lower abdominal pain, unspecified. - Condition is Stable. - Discharge Instructions: Abdominal Pain, Adult. - Prescriptions for Zofran ODT 4 mg Oral tablet,disintegrating - place 1 tablet by TRANSLINGUAL route every 4-6 hours; 20 tablet. Bentyl 20 mg Oral Tablet - take 1 tablet by ORAL route every 6 hours As needed; 20 tablet. - Medication Reconciliation Form, Thank You Letter, Antibiotic Education, Prescription Opioid Use form. - Follow up: Private Physician; When: 2 - 3 days; Reason: Recheck today's complaints, Continuance of care, Re-evaluation by your physician. Signatures: Dispatcher [employer] EDMoe Perdomo PA PA jmm Williams, Irene, RN RN iw Nieto, Roman, MD MD rn Davies, Jonathon, RN RN jd3 Corrections: (The following items were deleted from the chart) 17:17 16:58 11/22/2020 16:58 Discharged to Home. Impression: Lower abdominal pain, iw unspecified. Condition is Stable. Forms are Medication Reconciliation Form, Thank You Letter, Antibiotic Education, Prescription Opioid Use. Follow up: Private Physician; When: 2 - 3 days; Reason: Recheck today's complaints, Continuance of care, Re-evaluation by your physician. sarthak
--- NOTE | 2020-11-22 16:59 | ER ---
Nurse's Notes [facility] Name: Vanessa Solitario Age: 40 yrs Sex: Female : 1980 Arrival Date: 11/22/2020 Time: 12:34 Bed 7 Private MD: Diagnosis: Lower abdominal pain, unspecified Presentation: 11/22 12:48 Chief complaint: Patient states: woke up at 4 am and felt cold, has been vomiting and iw having abd pain. Coronavirus screen: nausea, vomiting. Client presents with at least one sign or symptom that may indicate coronavirus-19. Standard/surgical mask placed on the client. Provider contacted for isolation considerations. Ebola Screen: Patient negative for fever greater than or equal to 101.5 degrees Fahrenheit, and additional compatible Ebola Virus Disease symptoms Patient denies exposure to infectious person. Patient denies travel to an Ebola-affected area in the 21 days before illness onset. No symptoms or risks identified at this time. Initial Sepsis Screen: Does the patient meet any 2 criteria? No. Patient's initial sepsis screen is negative. Does the patient have a suspected source of infection? No. Patient's initial sepsis screen is negative. Risk Assessment: Do you want to hurt yourself or someone else? Patient reports no desire to harm self or others. Onset of symptoms was November 22, 2020. 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 - Social history:: Smoking status: . Screenin:03 Abuse screen: Denies threats or abuse. Nutritional screening: No deficits noted. jd3 Tuberculosis screening: No symptoms or risk factors identified. Fall Risk IV access (20 points). Ambulatory Aid- None/Bed Rest/Nurse Assist (0 pts). Gait- Normal/Bed Rest/Wheelchair (0 pts) Mental Status- Oriented to own ability (0 pts). Total Vazquez Fall Scale indicates No Risk (0-24 pts). Assessment: 13:30 General: Appears in no apparent distress. uncomfortable, Behavior is calm, cooperative, jd3 appropriate for age. Pain: Complains of pain in left lower quadrant Quality of pain is described as aching, crampy, tender. Neuro: Level of Consciousness is awake, alert, obeys commands, Oriented to person, place, time, situation. Cardiovascular: Denies chest pain, Capillary refill < 3 seconds Patient's skin is warm and dry. Respiratory: Airway is patent Respiratory effort is even, unlabored, Respiratory pattern is regular, symmetrical, Denies cough, shortness of breath. GI: Abdomen is round non-distended, Abd is soft X 4 quads Abdomen is tender to palpation X 4 quads. Reports lower abdominal pain, nausea, vomiting. : No signs and/or symptoms were reported regarding the genitourinary system. EENT: No signs and/or symptoms were reported regarding the EENT system. Derm: Skin is intact, Skin is dry, Skin is normal, Skin temperature is warm. Musculoskeletal: Circulation, motion, and sensation intact. Range of motion: intact in all extremities. 15:15 Reassessment: Patient appears in no apparent distress at this time. Patient and/or jd3 family updated on plan of care and expected duration. Pain level reassessed. Patient is alert, oriented x 3, equal unlabored respirations, skin warm/dry/pink. Patient states feeling better. 17:17 Reassessment: Patient appears in no apparent distress at this time. Patient states iw feeling better. Patient states symptoms have improved. Vital Signs: 12:48 BP 113 / 88; Pulse 65; Resp 16; Temp 96.9; Pulse Ox 98% on R/A; Weight 77.11 kg; Height iw 5 ft. 4 in. (162.56 cm); Pain 8/10; 15:15 BP 150 / 78; Pulse 55; Resp 16 S; Pulse Ox 98% on R/A; jd3 17:10 BP 134 / 89; Pulse 60; Resp 15; Pulse Ox 98% ; iw 12:48 Body Mass Index 29.18 (77.11 kg, 162.56 cm) iw ED Course: 12:34 Patient arrived in ED. ag5 12:50 Triage completed. iw 13:08 Moe Barker PA is PHCP. jmm 13:08 Kamlesh Alvarez MD is Attending Physician. [facility] 13:30 Hayes Melton, RN is Primary Nurse. jd3 14:03 Arm band placed on. jd3 14:03 Patient has correct armband on for positive identification. Bed in low position. Call [facility] light in reach. Side rails up X 1. Pulse ox on. NIBP on. 14:03 Inserted saline lock: 20 gauge in right wrist, using aseptic technique. Blood collected.[facility] 16:01 CT Abd/Pelvis - IV Contrast Only In Process Unspecified. EDMS 17:16 No provider procedures requiring assistance completed. IV discontinued, intact, iw bleeding controlled, No redness/swelling at site. Pressure dressing applied. Administered Medications: 13:53 Drug: NS 0.9% 1000 ml Route: IV; Rate: 1 bolus; Site: right wrist; jd3 14:45 Follow up: Response: No adverse reaction; IV Status: Completed infusion; IV Intake: iw 1000ml 13:54 Drug: Reglan 10 mg Route: IVP; Site: right wrist; jd3 14:30 Follow up: Response: No adverse reaction; Pain is decreased iw 13:54 Drug: diphenhydrAMINE 25 mg Route: IVP; Site: right wrist; jd3 14:30 Follow up: Response: No adverse reaction iw 13:54 Drug: Pepcid 20 mg Route: IVP; Site: right wrist; jd3 14:30 Follow up: Response: No adverse reaction iw Intake: 14:45 IV: 1000ml; Total: 1000ml. iw Outcome: 16:58 Discharge ordered by MD. [facility] 17:16 Discharged to home ambulatory. iw 17:16 Condition: stable 17:16 Discharge instructions given to patient, Instructed on discharge instructions, follow up and referral plans. medication usage, Demonstrated understanding of instructions, follow-up care, medications, Prescriptions given X 2. 17:17 Patient left the ED. iw Signatures: Dispatcher [employer] EDMS Moe Barker PA PA jmm Williams, Irene, RN Hayes Coyne RN RN Alisson Castro ag5
[2020-11-22 17:30] VITALS: TEMP 96.9; O2SAT 98
[2020-11-22 17:33] VITALS: BP 134/89
[2020-11-22 17:35] LABS: Urine Blood NEGATIVE (NEG); Urine Glucose NEGATIVE (NEG); Urine Protein NEGATIVE (NEG); Urine Specific Gravity <1.005 (1.005-1.030); Urine pH 5.5 (5.0-7.0)
[2020-11-22 19:39] LABS: Blood Morphology Comment NOT SEEN (NOT SEEN); Platelet Estimate ADEQ; White Blood Cell Scan OK (OK)
== END 2020-11-22 17:17 | disposition home or self-care (01) ==
LOC: ER 12:34
DX: R10.32 Left lower quadrant pain (principal); R11.2 Nausea with vomiting, unspecified; Z88.1 Allergy status to other antibiotic agents; Z88.2 Allergy status to sulfonamides
CPT/HCPCS: 36415; 74177; 80048; 80076; 81003; 83690; 85025; 96361; 96374; 96375; 99284; J1200; J2765; J7030; Q9967

== ENCOUNTER 2021-10-03 13:38 | Emergency (ER) | payer SELFPAY ==
[2021-10-03 13:59] LABS: Urine Blood Negative (Negative); Urine Glucose Negative (Negative); Urine Protein Negative (Negative); Urine pH 5.5 (5.0-7.0)
[2021-10-03] MEDS ORDERED: ONDANSETRON 4 MG/2 ML VIAL ONE (14:00)
[2021-10-03] MEDS ORDERED: NA CHLORIDE 0.9% 1,000 ML ONE (14:01)
[2021-10-03] MEDS ORDERED: KETOROLAC 30 MG/ML INJ ONE (14:01)
[2021-10-03 14:18] LABS: Urine Bacteria NONE SEEN /HPF (<20); Urine RBC NONE SEEN /HPF (NONE SEEN)
[2021-10-03 14:26] LABS: Absolute Lymphocytes (CBC) 2.5 K/uL (0.7-4.9); Basophils % 0.7 % (0-1.3); Hematocrit 44.4 % (36.0-45.0); Lymphocytes % 16.5 % (15.3-44.8); MPV 8.6 fL (7.6-11.3); RBC Red Blood Cell Count 4.94 M/uL (3.86-4.86)
[2021-10-03 14:32] LABS: ALT/SGPT 14 U/L (12-78); AST/SGOT 7 U/L (15-37); Albumin 3.7 g/dL (3.4-5.0); Alkaline Phosphatase 94 U/L (45-117); BUN Blood Urea Nitrogen 7 mg/dL (7-18); Bicarbonate 27 mmol/L (21-32); Bilirubin Direct 0.2 mg/dL (0-0.2); Bilirubin Total 0.8 mg/dL (0.2-1.0); Glucose Level 99 mg/dL (74-106); Lipase 125 U/L (73-393); Potassium 3.6 mmol/L (3.5-5.1); Protein, Total 7.8 g/dL (6.4-8.2); Sodium Level 138 mmol/L (136-145)
--- NOTE | 2021-10-03 15:00 | RAD REPORT ---
EXAM DESCRIPTION: CT - Abdomen Pelvis W Contrast - 10/03/2021 2:41 pm CLINICAL HISTORY: Abdominal pain COMPARISON: November 2020 TECHNIQUE: Computed axial tomography of the abdomen pelvis was obtained. 100 cc Isovue-300 was admin istered intravenously. Oral contrast was not requested which limits evaluation of bowel. All CT scans are performed using dose optimization technique as appropriate and may include automated exposure control or mA/KV adjustment according to patient size. FINDINGS: The liver, spleen, pancreas, adrenal and kidneys appear unremarkable. There is no evidence of diverticulitis. Normal appendix 5.5 centimeter complex cystic mass left adnexa slightly enlarged from the prior exam. Left hydrosalpi nx. 2 centimeter right ovarian cyst unchanged. No significant free fluid IMPRESSION: Left hydrosalpinx 5.5 centimeter complex cystic mass left adnexa may represent an ovarian cystadenoma or benign complex ovarian cyst.
[2021-10-03] MEDS ORDERED: HYDROCODONE/APAP 7.5/325 MG TAB ONE (16:36)
--- NOTE | 2021-10-03 16:44 | RAD REPORT ---
EXAM DESCRIPTION: US - Pelvis Complete - 10/03/2021 4:32 pm CLINICAL HISTORY: Pelvic pain COMPARISON: CT scan same date FINDINGS: The uterus measures 9 x 5 x 6 centimeters. Endometrial stripe normal Left hydrosalpinx. 5.5 centimeter complex cystic mass left adnexal contains septations. Blood flow to the periphery. A 2 centimeter right ovarian cyst No significant free fluid IMPRESSION: Left hydrosalpinx 5.5 centimeter complex cystic mass left adnexa could represent a benign complex ovarian cyst or an ov mynor cystadenoma
--- NOTE | 2021-10-03 16:55 | ER ---
Nurse's Notes [facility] Name: Vanessa Solitario Age: 40 yrs Sex: Female : 1980 Arrival Date: 10/03/2021 Time: 13:41 Bed 18 Private MD: Diagnosis: Other ovarian cyst, left side-with hydrosalphynx Presentation: 10/03 13:45 Chief complaint: Patient states: L lower abd pain that radiates to back that began ss yesterday. Coronavirus screen: Client denies travel out of the [place] in the last 14 days. Ebola Screen: Patient denies exposure to infectious person. Patient denies travel to an Ebola-affected area in the 21 days before illness onset. Initial Sepsis Screen: Does the patient meet any 2 criteria? No. Patient's initial sepsis screen is negative. Does the patient have a suspected source of infection? No. Patient's initial sepsis screen is negative. Risk Assessment: Do you want to hurt yourself or someone else? Patient reports no desire to harm self or others. Onset of symptoms was October 02, 2021. 13:45 Method Of Arrival: Ambulatory ss 13:45 Acuity: PABLO 3 ss Triage Assessment: 13:50 General: Appears distressed, uncomfortable, Behavior is cooperative, appropriate for bp age, anxious. Pain: Complains of pain in abdomen. EENT: No deficits noted. Neuro: No deficits noted. Cardiovascular: No deficits noted. Respiratory: No deficits noted. GI: Reports lower abdominal pain. : No signs and/or symptoms were reported regarding the genitourinary system. Derm: No deficits noted. Musculoskeletal: No deficits noted. 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 - Social history:: Smoking status: Patient denies any tobacco usage or history of. Screenin:00 Abuse screen: Denies threats or abuse. Denies injuries from another. Nutritional bp screening: No deficits noted. Tuberculosis screening: No symptoms or risk factors identified. Fall Risk None identified. Assessment: 14:00 General: SEE TRIAGE NOTE. bp 15:00 Reassessment: PT RETURNED FROM CT. IV REMOVED 2/[address] MINIMAL bp INDURATION NOTED. 16:08 Reassessment: Patient appears in no apparent distress at this time. No changes from ld1 previously documented assessment. Patient and/or family updated on plan of care and expected duration. Pain level reassessed. Patient is alert, oriented x 3, equal unlabored respirations, skin warm/dry/pink. Vital Signs: 13:45 BP 114 / 75; Pulse 103; Resp 16; Pulse Ox 99% on R/A; Weight 77.11 kg; Height 5 ft. 4 ss in. (162.56 cm); Pain 8/10; 15:00 BP 104 / 55; Pulse 89; Resp 16; Pulse Ox 94% ; bp 16:08 BP 114 / 78; Pulse 87; Resp 18; Pulse Ox 97% on R/A; ld1 13:45 Body Mass Index 29.18 (77.11 kg, 162.56 cm) ss ED Course: 13:41 Patient arrived in ED. ds1 13:46 Triage completed. ss 13:46 Arm band placed on right wrist. ss 13:49 Deisi York F[facility]-C [facility] kb 13:49 Kamlesh Alvarez MD is Attending Physician. kb 13:51 Kam Diallo, TRACI is Primary Nurse. bp 14:00 Inserted saline lock: 22 gauge in right antecubital area, using aseptic technique. bp Blood collected. 14:24 Urine --Ancillary (enter results) Sent. 5 14:24 CT Abd/Pelvis - IV Contrast Only Sent. 5 14:24 Basic Metabolic Panel Sent. mh5 14:25 Patient has correct armband on for positive identification. Placed in gown. Bed in low mh5 position. Call light in reach. Side rails up X 1. Warm blanket given. Pulse ox on. NIBP on. 14:25 CBC with Diff Sent. mh5 14:25 Hepatic Function Sent. 5 14:25 Lipase Sent. 5 14:25 Initial lab(s) drawn, by md, sent to lab. Urine collected: clean catch specimen, clear. 5 14:25 Inserted saline lock: 22 gauge antecubital area, using aseptic technique. Blood mh5 collected. 14:41 CT Abd/Pelvis - IV Contrast Only In Process Unspecified. EDMS 15:07 IV discontinued, intact, bleeding controlled, Pressure dressing applied. bp 16:32 Pelvis Complete In Process Unspecified. EDMS 17:13 No provider procedures requiring assistance completed. ld1 Administered Medications: 14:10 Drug: NS 0.9% 1000 ml Route: IV; Rate: 1000 ml; Site: right antecubital; bp 14:10 Drug: Zofran (Ondansetron) 4 mg Route: IVP; Site: right antecubital; bp 14:10 Drug: Ketorolac 15 mg Route: IVP; Site: right antecubital; bp 16:40 Drug: [place] (HYDROcodone-acetaminophen) (7.5 mg-325 mg) 1 tabs Route: PO; ld1 Outcome: 16:54 Discharge ordered by MD. kb 17:13 Discharged to home ambulatory. ld1 17:13 Condition: stable 17:13 Discharge instructions given to patient, Instructed on discharge instructions, follow up and referral plans. medication usage, Demonstrated understanding of instructions, follow-up care, medications, Prescriptions given X 2. 17:14 Patient left the ED. ld1 Signatures: Dispatcher [employer] EDMS Deisi York, OIL CHANGE TECHNICIAN-C OIL CHANGE TECHNICIAN-Tonja Pena ds1 Caty Walker, Rosa Haddad RN 5 Kam Diallo, TRACI RN bp Daisy Lu RN RN ld1 Corrections: (The following items were deleted from the chart) 15:11 15:00 Reassessment: PT D/C HOME AMBULATORY WITH FAMILY, DX WITH LACERATION bp bp
--- NOTE | 2021-10-03 16:55 | EDPHYS ---
Physician Documentation [facility] Name: Vanessa Solitario Age: 40 yrs Sex: Female : 1980 Arrival Date: 10/03/2021 Time: 13:41 Bed 18 Private MD: ED Physician Kamlesh Alvarez HPI: 10/03 15:27 This 40 yrs old Female presents to ER via Ambulatory with complaints of Low Abdominal kb Pain. 15:27 The patient presents with abdominal pain in the left lower quadrant. Onset: The kb symptoms/episode began/occurred yesterday. The symptoms radiate to left back. Associated signs and symptoms: none. The symptoms are described as constant. Modifying factors: The symptoms are alleviated by nothing, the symptoms are aggravated by nothing. Severity of pain: At its worst the pain was moderate in the emergency department the pain is unchanged. The patient has not experienced similar symptoms in the past. The patient has not recently seen a physician. LLQ and left pelvic pain since yesterday. States the pain has been constant. Denies fever, n/v/d, vaginal discharge. 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 - Social history:: Smoking status: Patient denies any tobacco usage or history of. ROS: 15:28 Constitutional: Negative for fever, chills, and weight loss. kb 15:28 Abdomen/GI: Positive for abdominal pain, Negative for nausea, vomiting, and diarrhea. 15:28 : Positive for pelvic pain. 15:28 All other systems are negative. Exam: 15:28 Constitutional: This is a well developed, well nourished patient who is awake, alert, kb and in no acute distress. Head/Face: Normocephalic, atraumatic. ENT: Moist Mucous membranes Cardiovascular: Regular rate and rhythm with a normal S1 and S2. No gallops, murmurs, or rubs. No pulse deficits. Respiratory: Respirations even and unlabored. No increased work of breathing. Talking in full sentences Skin: Warm, dry with normal turgor. Normal color. MS/ Extremity: Pulses equal, no cyanosis. Neurovascular intact. Full, normal range of motion. Neuro: Awake and alert, GCS 15, oriented to person, place, time, and situation. Moves all extremities. Normal gait. Psych: Awake, alert, with orientation to person, place and time. Behavior, mood, and affect are within normal limits. 15:28 Abdomen/GI: Inspection: abdomen appears normal, Bowel sounds: normal, in all quadrants, Palpation: soft, in all quadrants, mild abdominal tenderness, in the left upper quadrant, moderate abdominal tenderness, in the left lower quadrant. Vital Signs: 13:45 BP 114 / 75; Pulse 103; Resp 16; Pulse Ox 99% on R/A; Weight 77.11 kg; Height 5 ft. 4 ss in. (162.56 cm); Pain 8/10; 15:00 BP 104 / 55; Pulse 89; Resp 16; Pulse Ox 94% ; bp 16:08 BP 114 / 78; Pulse 87; Resp 18; Pulse Ox 97% on R/A; ld1 13:45 Body Mass Index 29.18 (77.11 kg, 162.56 cm) ss MDM: 13:49 Patient medically screened. kb 15:28 Data reviewed: vital signs, nurses notes. Data interpreted: Pulse oximetry: on room air kb is 94 %. Interpretation: normal. 16:52 Counseling: I had a detailed discussion with the patient and/or guardian regarding: the kb historical points, exam findings, and any diagnostic results supporting the discharge/admit diagnosis, lab results, radiology results, the need for outpatient follow up, an OB/Gyne specialist, to return to the emergency department if symptoms worsen or persist or if there are any questions or concerns that arise at home. ED course: Transvaginal US from 12/2019 reviewed. Today's findings not grossly different. Pt educated on findings and need to follow up with FIRST AID OFFICER. Pt denies vaginal discharge. . 10/03 13:50 Order name: Basic Metabolic Panel; Complete Time: 14:33 kb 10/03 13:50 Order name: CBC with Diff; Complete Time: 14:38 kb 10/03 13:50 Order name: Hepatic Function; Complete Time: 14:33 kb 10/03 13:50 Order name: Lipase; Complete Time: 14:33 kb 10/03 13:50 Order name: Urine Microscopic Only; Complete Time: 14:33 kb 10/03 13:58 Order name: Urine Dipstick-Ancillary; Complete Time: 14:00 EDMS 10/03 13:56 Order name: CT Abd/Pelvis - IV Contrast Only; Complete Time: 15:04 kb 10/03 14:02 Order name: Urine --Ancillary (enter results) eb 10/03 14:02 Order name: Urine --Ancillary; Complete Time: 14:33 EDMS 10/03 16:32 Order name: Pelvis Complete; Complete Time: 16:47 EDMS 10/03 13:50 Order name: IV Saline Lock; Complete Time: 14:22 kb 10/03 13:50 Order name: Labs collected and sent; Complete Time: 14:22 kb 10/03 13:50 Order name: Urine Dipstick-Ancillary (obtain specimen); Complete Time: 14:22 kb 10/03 13:50 Order name: Urine Test (obtain specimen); Complete Time: 14:22 kb Administered Medications: 14:10 Drug: NS 0.9% 1000 ml Route: IV; Rate: 1000 ml; Site: right antecubital; bp 14:10 Drug: Zofran (Ondansetron) 4 mg Route: IVP; Site: right antecubital; bp 14:10 Drug: Ketorolac 15 mg Route: IVP; Site: right antecubital; bp 16:40 Drug: [place] (HYDROcodone-acetaminophen) (7.5 mg-325 mg) 1 tabs Route: PO; ld1 Disposition: 17:55 Co-signature as Attending Physician, Kamlesh Alvarez MD I agree with the assessment and rn plan of care. Attestation: The patient's history, exam findings, diagnostics, and a summary of any interventions or procedures was reviewed in detail with Deisi VU. Disposition Summary: 10/03/21 16:54 Discharge Ordered Location: Home kb Condition: Stable kb Diagnosis - Other ovarian cyst, left side - with hydrosalphynx kb Followup: kb - With: Emergency Department - When: As needed - Reason: Worsening of condition Followup: kb - With: Private Physician - When: 2 - 3 days - Reason: Recheck today's complaints, Continuance of care, Re-evaluation by your physician Discharge Instructions: - Discharge Summary Sheet kb - Ovarian Cyst, [id number] kb Forms: - Medication Reconciliation Form kb - Thank You Letter kb - Antibiotic Education kb - Prescription Opioid Use kb - Work release form eb Prescriptions: - Doxycycline Hyclate 100 mg Oral Tablet - take 1 tablet by ORAL route every 12 hours for 10 days; 20 tablet; Refills: 0, kb Product Selection Permitted - Diclofenac Sodium 75 mg Oral tablet,delayed release (DR/EC) - take 1 tablet by ORAL route 2 times per day As needed; 30 tablet; Refills: 0, kb Product Selection Permitted Signatures: Dispatcher [employer] EDMS Deisi York, SLOOP CAPTAIN-C SLOOP CAPTAIN-Kamlesh Ramirez MD MD rn Caty Walker RN RN ss Kam Diallo RN RN Daisy Casas RN RN ld1 Corrections: (The following items were deleted from the chart) 16:32 15:06 Transvaginal Study (Probe)+US.RAD.BRZ ordered. EDAK EDMS
[2021-10-03 17:48] VITALS: BP 114/78; O2SAT 97
== END 2021-10-03 17:14 | disposition home or self-care (01) ==
LOC: ER 13:38
DX: N83.202 Unspecified ovarian cyst, left side (principal); N70.11 Chronic salpingitis; Z88.2 Allergy status to sulfonamides
CPT/HCPCS: 36415; 74177; 76856; 80048; 80076; 81003; 81015; 81025; 82565; 83690; 85025; 96374; 96375; 99284; J2405; J7030; Q9967

== ENCOUNTER 2023-01-31 11:31 | Inpatient (IN) | payer SELFPAY ==
[2023-01-31] MEDS ORDERED: LEVALBUTEROL 1.25 MG/3 ML NEB ONE ×3 (11:44→12:10)
[2023-01-31] MEDS ORDERED: METHYLPREDNISOLONE 125 MG INJ ONE (11:56)
[2023-01-31] MEDS ORDERED: MAGNESIUM SULFATE 1 gm IVPB 1 GM/100 ML BAG IV ONE (11:56)
[2023-01-31 12:04] LABS: Absolute Lymphocytes (CBC) 1.4 K/uL (0.7-4.9); Hematocrit 41.7 % (36.0-45.0); Lymphocytes % 12.1 % (15.3-44.8); MCV 87.1 fL (80-100); MPV 8.2 fL (7.6-11.3); RBC Red Blood Cell Count 4.79 M/uL (3.86-4.86)
[2023-01-31 12:11] LABS: Protime INR 1.03
--- NOTE | 2023-01-31 12:21 | RAD REPORT ---
EXAM DESCRIPTION: RAD - Chest Single View - 01/31/2023 12:13 pm CLINICAL HISTORY: Cough;SOB COMPARISON: Chest Single View dated 12/16/2019; Chest Single View dated 02/21/2016; CHEST SINGLE VIEW da pro 10/08/2015; CHEST SINGLE VIEW dated 10/07/2015Chest Single View dated 12/16/2019; Chest Single View dated 02/21/2016; CHEST SINGLE VIEW dated 10/08/2015; CHEST SINGLE VIEW dated 10/07/2015; Abdomen Pe lvis W Contrast dated 01/16/2023 FINDINGS: Lines: None. Lungs: Increased lung markings present in the lung bases. Pleural: Small right effusion is new from prior. Possible tiny left effusion . Cardiac: The heart size is within normal limits. Mediastinum: Within normal limits. Bones: No acute fractures. Other: None IMPRESSION: Increased basilar opacities as well as new blunting of the right costophrenic angle coul d be secondary to edema, less likely pneumonia. A chest CT is pending.
[2023-01-31 12:28] LABS: Albumin 3.9 g/dL (3.4-5.0); Bilirubin Total 0.7 mg/dL (0.2-1.0); Potassium 3.5 mEq/L (3.5-5.1); Troponin High Sensitivity 3.8 pg/mL (<58.9)
--- NOTE | 2023-01-31 12:42 | RAD REPORT ---
EXAM DESCRIPTION: CT - Chest For Pe Angio - 01/31/2023 12:34 pm CLINICAL HISTORY: Chest pain. Cough;Dyspnea COMPARISON: THORAX WO CONTRAST dated 10/05/2015 TECHNIQUE: CT angiogram of the pulmonary arteries was performed with MIP. All CT scans are performed using dose optimization technique as appropriate and may include automated exposure control or mA/KV adjustment according to patient size. FINDINGS: No evidence of pulmonary thromboembolism. No acute aortic finding demonstrated. Mild COPD. No significant pericardial or pleural fluid. No concerning bony finding. Cholecystectomy. IMPRESSION: No evidence of pulmonary thromboembolism. Mild diffuse COPD.
[2023-01-31] MEDS ORDERED: AZITHROMYCIN 500 MG INJ IVPB ONE (13:46)
[2023-01-31] MEDS ORDERED: CEFTRIAXONE 1000 MG/VIAL ONE (13:46)
[2023-01-31] MEDS ORDERED: NA CHLORIDE 0.9% 250 ML ONE (13:46)
--- NOTE | 2023-01-31 14:34 | ER ---
Nurse's Notes [facility] Name: Vanessa Solitario Age: 42 yrs Sex: Female : 1980 Arrival Date: 01/31/2023 Time: 11:31 Bed 15 Private MD: Diagnosis: COPD/ Chronic obstructive pulmonary disease with acute lower respiratory infection;Pneumonia, unspecified organism;Hypoxemia Presentation: 01/31 11:44 Chief complaint: Patient states: Difficulty breathing that started yesterday, currently ph taking Amoxicillan for recent strep infection, also reports chest discomfort, back pain, chills, headache and nausea. Room air Spo2 87% in triage. Coronavirus screen: Vaccine status: Patient reports being unvaccinated. Ebola Screen: No symptoms or risks identified at this time. Initial Sepsis Screen: Does the patient meet any 2 criteria? RR > 20 per min. HR > 90 bpm. Yes Does the patient have a suspected source of infection? Yes: Productive cough/pneumonia. Risk Assessment: Do you want to hurt yourself or someone else? Patient reports no desire to harm self or others. Onset of symptoms was January 31, 2023. 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 - Social history:: Smoking status: Patient denies any tobacco usage or history of. - Family history:: not pertinent. - Hospitalizations: : No recent hospitalization is reported. Screenin:53 [facility] ED Fall Risk Assessment (Adult) History of falling in the last 3 months, ph including since admission No falls in past 3 months (0 pts) Confusion or Disorientation No (0 pts) Intoxicated or Sedated No (0 pts) Impaired Gait No (0 pts) Mobility Assist Device Used No (0 pt) Altered Elimination No (0 pt) Score/Fall Risk Level 0 - 2 = Low Risk Oriented to surroundings, Maintained a safe environment, Hourly rounding (assess needs \T\ fall precautionary measures) done. Abuse screen: Denies threats or abuse. Denies injuries from another. Nutritional screening: No deficits noted. Tuberculosis screening: No symptoms or risk factors identified. Assessment: 11:45 Reassessment: Code sepsis called overhead. ph 11:54 Reassessment: RT at bedside to place pt on bi-pap. ph 11:56 General: Appears distressed, uncomfortable, Behavior is calm, cooperative, appropriate ph for age, Reports chills for. Pain: Complains of pain in thoracic area and chest. Neuro: Level of Consciousness is awake, alert, obeys commands, Oriented to person, place, time, situation. Cardiovascular: Patient's skin is warm and dry. Respiratory: Reports shortness of breath at rest Airway is patent Respiratory effort is labored, using tripod position, Respiratory pattern is tachypnea. GI: Reports nausea, Patient currently denies abdominal pain. Derm: Skin is healthy with good turgor, Skin is pink, warm \T\ dry. Musculoskeletal: Circulation, motion, and sensation intact. Range of motion: intact in all extremities. 12:28 Reassessment: Pt taken to CT via stretcher and nonrebreather. ph 12:29 Reassessment: Both set of blood cultures sent. mb9 13:42 General: Appears uncomfortable, Behavior is calm, cooperative. Neuro: Level of mb9 Consciousness is awake, alert, obeys commands, Oriented to person, place, time, situation. Cardiovascular: Rhythm is regular. Respiratory: Airway is patent Respiratory effort is even, unlabored, Respiratory pattern is regular, symmetrical. Derm: Skin is pink, warm \T\ dry. 15:22 Reassessment: Patient states feeling better. Patient states symptoms have improved. mb9 Cardiovascular: Rhythm is regular. Respiratory: Airway is patent Respiratory effort is even, unlabored, Respiratory pattern is regular, symmetrical. Derm: Skin is pink, warm \T\ dry. 16:40 Reassessment: No changes from previously documented assessment. Patient and/or family mb9 updated on plan of care and expected duration. Pain level reassessed. Patient is alert, oriented x 3, equal unlabored respirations, skin warm/dry/pink. Patient states symptoms have improved. 18:00 Reassessment: See [facility] for further charting. mb9 Vital Signs: 11:40 Pulse Ox 87% on placed on 2 liters o2 in triage; ap3 11:44 BP 138 / 114; Pulse 113; Resp 26; Temp 97.4; Pulse Ox 94% 3 lpm ; Weight 77.11 kg; ph Height 5 ft. 4 in. ; 13:23 BP 136 / 91; Pulse 100; rn 13:41 BP 136 / 91; Pulse 95; Resp 20; Pulse Ox 100% on BiPAP; mb9 15:22 BP 127 / 80; Pulse 90; Resp 18; Pulse Ox 97% on BiPAP; mb9 16:40 BP 157 / 66; Pulse 102; Resp 20; Pulse Ox 98% on BiPAP; mb9 11:44 Body Mass Index 29.18 (77.11 kg, 162.56 cm) ph ED Course: 11:32 Patient arrived in ED. rn 11:32 Kamlesh Alvarez MD is Attending Physician. rn 11:37 Kenna Thomas RN is Primary Nurse. ph 11:52 Triage completed. ph 11:54 Patient has correct armband on for positive identification. Bed in low position. Call ph light in reach. Side rails up X2. Client placed on continuous cardiac and pulse oximetry monitoring. NIBP monitoring applied. 11:54 Arm band placed on. ph 11:55 Initial lab(s) drawn, by ED staff, sent to lab. Inserted saline lock: 20 gauge in left ph forearm, using aseptic technique. Blood collected. 12:14 Chest Single View XRAY In Process Unspecified. EDMS 12:20 EKG done, by ED staff, reviewed by Kamlesh Alvarez MD. mb9 12:26 Inserted saline lock: 20 gauge in right antecubital area, using aseptic technique. rs5 Blood collected. 12:35 CT Chest For PE Angio In Process Unspecified. EDMS 14:33 Lucio Flores MD is Hospitalizing Provider. rn 19:35 Primary Nurse role handed off by Kenna Thomas RN jl7 20:08 Daphney Pulido, TRACI is Primary Nurse. mb9 02/01 05:52 No provider procedures requiring assistance completed. Patient admitted, IV remains in as6 place. 07:33 Primary Nurse role handed off by Daphney Pulido, TRACI bp 07:33 Kam Diallo, TRACI is Primary Nurse. bp Administered Medications: 01/31 11:43 Drug: Levalbuterol Inhalation 1.25 mg Route: Inhalation; ph 11:48 Drug: MethylPrednisoLONE IVP 125 mg Route: IVP; Site: left forearm; mb9 13:52 Follow up: Response: No adverse reaction mb9 11:50 Drug: Magnesium Sulfate IVPB 1 grams Route: IVPB; Infused Over: 1 hrs; Site: left mb9 forearm; 13:32 Drug: Rocephin IV 1 grams Route: IV; Rate: calculated rate; Site: right antecubital; mb9 16:02 Follow up: Response: No adverse reaction; IV Status: Completed infusion mb9 13:50 Drug: Zithromax IVPB 500 mg Route: IVPB; Infused Over: 1 hrs; Site: left forearm; mb9 16:02 Follow up: Response: No adverse reaction; IV Status: Completed infusion mb9 Medication: 11:55 VIS not applicable for this client. ph Outcome: 14:34 Decision to Hospitalize by Provider. rn 02/01 18:27 Admitted to Med/surg accompanied by tech, via stretcher, room 232, with chart, Report bp called to DUSTIN AVILES Condition: stable Instructed on the need for admit. 18:48 Patient left the ED. bp Signatures: Dispatcher [employer] EDMS Kamlesh Alvarez MD MD rn Hall, Patricia RN RN Wanda Milton RN RN [id number] Kam Diallo RN RN Venus Aldrich RN RN ap3 Alberto Dangelo RN RN as6 Daphney Pulido RN RN mb9 Leslie ibarra RN RN pf1 Cristian Billings rs5 Corrections: (The following items were deleted from the chart) 01/31 17:35 17:22 COVID-19/FLU A+B+MOL.LAB.BRZ drawn and sent. [facility] EDFL 02/01 18:27 01/31 21:28 Admitted to Med/surg accompanied by tech, via wheelchair, room 401, with bp chart, Report called to TRACI Gardner pf1 02/01 18:27 01/31 21:28 Condition: stable pf1 bp 02/01 18:27 01/31 21:28 Instructed on the need for admit, Demonstrated understanding of bp instructions, pf1
--- NOTE | 2023-01-31 14:35 | EDPHYS ---
Physician Documentation [facility] Name: Vanessa Solitario Age: 42 yrs Sex: Female : 1980 Arrival Date: 01/31/2023 Time: 11:31 Bed 15 Private MD: ED Physician Kamlesh Alvarez HPI: 01/31 12:04 This 42 yrs old Female presents to ER via Ambulatory with complaints of sob. rn 12:04 The patient has shortness of breath at rest, with light activity. Onset: The rn symptoms/episode began/occurred yesterday. Duration: The symptoms are continuous. The patient's shortness of breath is aggravated by coughing, exertion, light activity, is alleviated by nothing. Associated signs and symptoms: Pertinent positives: chest pain, non-productive cough, Pertinent negatives: fever, hemoptysis. Severity of symptoms: At their worst the symptoms were moderate in the emergency department the symptoms are unchanged. The patient has not experienced similar symptoms in the past. The patient has been recently seen by a physician:. Pt reports sob, cough, chest pain, began yesterday. + recent diagnosis of strep throat and almost done with abx. NO trauma. NO hx of dvt/pe. No abd pain. . 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 - Social history:: Smoking status: Patient denies any tobacco usage or history of. - Family history:: not pertinent. - Hospitalizations: : No recent hospitalization is reported. ROS: 12:04 Constitutional: Negative for fever, chills, and weight loss, Cardiovascular: + chest rn pain Respiratory: + sob Abdomen/GI: Negative for abdominal pain, nausea, vomiting, diarrhea, and constipation, MS/Extremity: Negative for injury and deformity, Skin: Negative for injury, rash, and discoloration, Neuro: Negative for headache, weakness, numbness, tingling, and seizure. Exam: 12:04 Constitutional: This is a well developed, well nourished patient who is awake, alert, rn + moderate tachypnea Head/Face: Normocephalic, atraumatic. ENT: no stridor Cardiovascular: Tachycardic, regular Respiratory: + moderate tachypnea with inspiratory and exp wheezing Abdomen/GI: soft, non-tender Skin: Warm, dry MS/ Extremity: Pulses equal, no cyanosis. Neuro: Awake and alert, GCS 15 12:27 ECG was reviewed by the Attending Physician. rn Vital Signs: 11:40 Pulse Ox 87% on placed on 2 liters o2 in triage; ap3 11:44 BP 138 / 114; Pulse 113; Resp 26; Temp 97.4; Pulse Ox 94% 3 lpm ; Weight 77.11 kg; ph Height 5 ft. 4 in. ; 13:23 BP 136 / 91; Pulse 100; rn 13:41 BP 136 / 91; Pulse 95; Resp 20; Pulse Ox 100% on BiPAP; mb9 15:22 BP 127 / 80; Pulse 90; Resp 18; Pulse Ox 97% on BiPAP; mb9 16:40 BP 157 / 66; Pulse 102; Resp 20; Pulse Ox 98% on BiPAP; mb9 11:44 Body Mass Index 29.18 (77.11 kg, 162.56 cm) ph MDM: 11:33 Patient medically screened. rn 11:56 ED course: Pt did not improve after nebulizer, still very tachypneic, ordered Bipap. rn 14:32 Differential diagnosis: Anxiety Reaction Bronchitis CHF exacerbation, Chronic rn Obstructive Pulmonary Disease Myocardial Infarction pneumonia, Pneumothorax pulmonary edema, Pulmonary Embolism reactive airway disease, Sepsis. Data reviewed: vital signs, nurses notes, lab test result(s), EKG, radiologic studies, CT scan, plain films, and as a result, I will admit patient. Consideration of Admission/Observation Patient was admitted/placed on observation. Escalation of care including admission/observation considered. Management of patient was discussed with the following: Hospitalist: . Independent interpretation of the following test(s) in the Emergency Department EKG: See my EKG interpretation above X-Ray: My interpretation is CXR images show bibasilar infiltrates, possible pneumonia vs edema per my interpretation.. Counseling: I had a detailed discussion with the patient and/or guardian regarding: the historical points, exam findings, and any diagnostic results supporting the discharge/admit diagnosis, lab results, radiology results, the need for further work-up and treatment in the hospital. Response to treatment: the patient's symptoms have markedly improved after treatment, and as a result, I will admit patient. ED course: Pt markedly improved on bipap, stable vitals, abx administered for possible pneumonia. Admitted to hospitalist service.. 01/31 11:37 Order name: Blood Culture Adult (2) rn 01/31 11:37 Order name: CBC with Diff; Complete Time: 13: rn 01/31 11:37 Order name: CMP; Complete Time: 13: rn 01/31 11:37 Order name: Lactate w/ 2H reflex if indic.; Complete Time: 13: rn 01/31 11:37 Order name: Protime (+inr); Complete Time: 13: rn 01/31 11:37 Order name: Ptt, Activated; Complete Time: 13: rn 01/31 11:39 Order name: BNP; Complete Time: 13: 01/31 11:39 Order name: Troponin High Sensitivity; Complete Time: 13: rn 01/31 12:33 Order name: Glucose, Ancillary Testing; Complete Time: 13: EDMS 01/31 16:53 Order name: Magnesium EDMS 01/31 16:53 Order name: Phosphorus EDMS 01/31 16:53 Order name: T4 Free EDMS 01/31 16:53 Order name: Thyroid Stimulating Hormone EDMS 01/31 16:53 Order name: Urinalysis w/ reflexes EDMS 01/31 16:53 Order name: Basic Metabolic Panel EDMS 01/31 16:53 Order name: Basic Metabolic Panel EDMS 01/31 16:53 Order name: CBC with Automated Diff EDMS 01/31 16:53 Order name: CBC with Automated Diff EDMS 01/31 17:35 Order name: SARS-COV-2 RT PCR EDMS 01/31 22:13 Order name: ABG Arterial Blood Gas EDMS 02/01 03:34 Order name: Phosphorus EDMS 02/01 04:58 Order name: CBC Smear Scan EDMS 01/31 11:37 Order name: Chest Single View XRAY; Complete Time: 13:22 rn 01/31 11:37 Order name: CT Chest For PE Angio; Complete Time: 13: rn 01/31 11:47 Order name: BIPAP rn 01/31 11:37 Order name: EKG; Complete Time: 11:39 rn 01/31 16:53 Order name: Regular EDMS 01/31 11:37 Order name: Accucheck; Complete Time: 12:20 rn 01/31 11:37 Order name: Cardiac monitoring; Complete Time: 11:57 rn 01/31 11:37 Order name: EKG - Nurse/Tech; Complete Time: 12:18 rn 01/31 11:37 Order name: IV Saline Lock - Large Bore; Complete Time: 11:58 rn 01/31 11:37 Order name: Labs collected and sent; Complete Time: 11:58 rn 01/31 11:37 Order name: O2 Per Protocol; Complete Time: 11:58 rn 01/31 11:37 Order name: O2 Sat Monitoring; Complete Time: 11:58 rn 01/31 11:37 Order name: Vital Signs; Complete Time: 11:57 rn EC:27 Rate is 103 beats/min. Rhythm is regular. QRS Gilbert is Normal. OR interval is normal. rn QRS interval is normal. QT interval is normal. No Q waves. T waves are Normal. No ST changes noted. Clinical impression: Sinus tachycardia. Interpreted by me. Reviewed by me. Administered Medications: 11:43 Drug: Levalbuterol Inhalation 1.25 mg Route: Inhalation; ph 11:48 Drug: MethylPrednisoLONE IVP 125 mg Route: IVP; Site: left forearm; mb9 13:52 Follow up: Response: No adverse reaction mb9 11:50 Drug: Magnesium Sulfate IVPB 1 grams Route: IVPB; Infused Over: 1 hrs; Site: left mb9 forearm; 13:32 Drug: Rocephin IV 1 grams Route: IV; Rate: calculated rate; Site: right antecubital; mb9 16:02 Follow up: Response: No adverse reaction; IV Status: Completed infusion mb9 13:50 Drug: Zithromax IVPB 500 mg Route: IVPB; Infused Over: 1 hrs; Site: left forearm; mb9 16:02 Follow up: Response: No adverse reaction; IV Status: Completed infusion mb9 Disposition: 14:32 Critical Care:. rn Disposition Summary: 01/31/23 14:34 Hospitalization Ordered Hospitalization Status: Inpatient Admission rn Provider: Lucio Flores rn Condition: Stable rn Problem: new rn Symptoms: have improved rn Bed/Room Type: Standard rn Location: Telemetry/MedSurg (Inpatient)(02/01/23 17:15) Room Assignment: 232(02/01/23 17:15) Diagnosis - COPD/ Chronic obstructive pulmonary disease with acute lower respiratory infection rn - Pneumonia, unspecified organism rn - Hypoxemia rn Forms: - Medication Reconciliation Form rn - SBAR form rn burn time excluding procedures: 14:32 Critical care time: Bedside Care: 35 minutes, Consultation: 5 minutes. Total time: 40 rn minutes Signatures: Dispatcher [employer] EDMS Lynn Griffin, RN RN Kamlesh Alvarez MD MD rn Hall, Patricia RN RN Aleja Plascencia, RN RN Daphney Pulido, RN RN mb9 Corrections: (The following items were deleted from the chart) 17:35 16:51 COVID-19/FLU A+B+MOL.LAB.BRZ ordered. EDAZ EDAZ 22:04 14:34 Telemetry/MedSurg (Inpatient) rn 22:04 14:34 rn cg 02/01 17:15 01/31 22:04 [facility] ER HOLD cg 02/01 17:15 01/31 22:04 ERHOLD- cg
[2023-01-31] MEDS ORDERED: LABETALOL 20 MG/4ML SYRINGE IV PRN (16:45)
[2023-01-31] MEDS ORDERED: ACETAMINOPHEN 325 MG TABLET PO PRN (16:47)
--- NOTE | 2023-01-31 16:52 | P.HP ---
Certification for Inpatient Patient admitted to: Inpatient With expected LOS: >2 Midnights Patient will require the following post-hospital care: None Practitioner: I am a practitioner with admitting privileges, knowledge of patient current condition, hospital course, and medical plan of care. Services: Services provided to patient in accordance with Admission requirements found in Title 42 Section 412.3 of the Code of Federal Regulations Patient History Date of Service: 01/31/23 Reason for admission: SOb History of Present Illness: Patient is a 42-year-old female with a past medical history significant for COPD, seizures who presents with complaint of shortness of breath onset yesterday. Patient reported that she was recently treated for strep throat with amoxicillin. Patient reported associated signs and symptoms of cough, chest tightness and headache. Patient denies any other signs and symptoms. Symptoms are aggravated or relieved by nothing. Patient decided to present to the hospital due to worsening symptoms. Allergies Sulfa (Sulfonamide Antibiotics) Allergy (Unverified 09/17/17 21:27) Unknown sulfamethoxazole [From Bactrim] Allergy (Verified 02/24/16 01:27) Shortness of breath trimethoprim [From Bactrim] Allergy (Verified 02/24/16 01:27) Hives/Rash Sulfa (Sulfonamid Allergy (Uncoded 02/27/16 05:43) Unknown Home Medications: Doxycycline Hyclate 100 mg PO BID #14 tablet 02/24/16 Paroxetine HCl [Paxil] 10 mg PO DAILY #30 tablet 02/24/16 metroNIDAZOLE [Flagyl] 500 mg PO BID #14 tablet 02/24/16 Hydrocodone Bit/Acetaminophen [[place] 10-325 Tablet] 1 each PO Q6HP PRN #30 tablet 03/02/16 Promethazine Tab [Phenergan] 25 mg PO Q6HP PRN #30 tab 03/02/16 clonazePAM [Klonopin] 0.5 mg PO TIDP PRN #60 tab 03/02/16 levoFLOXacin [Levaquin*] 500 mg PO DAILY #7 tab 03/02/16 metroNIDAZOLE [Flagyl*] 500 mg PO TID #30 tablet 03/02/16 - Past Medical/Surgical History Diabetic: No -: anxiety -: seizures -: tubal pregancy -: i/d of chin -: ovarian cyst - Family History Father -: Heart disease Mother Notes: copd, asthma - Social History Alcohol use: No CD- Drugs: No Caffeine use: No Place of Residence: Home Review of Systems General: Unremarkable Eyes: Unremarkable ENT: Unremarkable Respiratory: Cough, Shortness of Breath, Other (Chest tightness) Cardiovascular: Unremarkable Gastrointestinal: Unremarkable Musculoskeletal: Unremarkable Integumentary: Unremarkable Neurological: Other (Headache) Physical Examination - Physical Exam General: Alert, Oriented x3, Acute distress HEENT: Atraumatic, PERRLA, Mucous membr. moist/pink, EOMI, Sclerae nonicteric Neck: Supple, 2+ carotid pulse no bruit, No LAD, Without JVD or thyroid abnormality Respiratory: Diminished, Expiratory wheezes, Inspiratory wheezes Cardiovascular: No edema, Regular rate/rhythm, Normal S1 S2 Capillary refill: <2 Seconds Gastrointestinal: Normal bowel sounds, Non-distended, No tenderness Musculoskeletal: No clubbing, No tenderness Integumentary: No rashes, No breakdown, No significant lesion Neurological: Normal speech, Normal tone, Normal affect Lymphatics: No axilla or inguinal lymphadenopathy - Studies Laboratory Data (last 24 hrs) 01/31/23 11:53: PT 11.3, INR 1.03, APTT 32.5 01/31/23 11:53: Sodium 137, Potassium 3.5, BUN 6 L, Creatinine 0.63, Glucose 147 H, Total Bilirubin 0.7, AST 8 L, ALT 17, Alkaline Phosphatase 90 01/31/23 11:53: WBC 11.80 H, Hgb 14.1, Hct 41.7, Plt Count 408 H Assessment and Plan - Plan --Acute respiratory failure with hypoxia. Secondary to COPD exacerbation. Patient on BiPAP therapy. Continue neb treatment with albuterol \Atrovent and steroids. -- Acute on chronic COPD exacerbation. Continue current treatment regimen. --Mild leukocytosis. Likely steroid-induced. Blood cultures pending. Will reassess WBC in AM. -- Anxiety disorder\depression. Continue home medication. --History of seizures. Continue home medication. Seizure precautions. --Cough. Antitussives on board. Continue supportive care. --Headache. Tylenol as needed. -- DVT prophylaxis with Lovenox subQ. Discharge Plan: Home Plan to discharge in: Greater than 2 days - Advance Directives Does patient have a Living Will: No Does patient have a Durable POA for Healthcare: No - Code Status/Comfort Care Code Status Assessed: Yes Physician Review: Patient Assessed, Agree with Above Assessment and Plan Critical Care: No
[2023-01-31] MEDS: METHYLPREDNISOLONE 40 MG INJ IV SCH (17:00)
[2023-01-31] MEDS: ENOXAPARIN 40 MG/0.4 ML SQ SCH (18:00)
[2023-01-31 18:07] LABS: Magnesium 2.2 mg/dL (1.6-2.4); Phosphorus 2.1 mg/dL (2.5-4.9); Thyroid Stimulating Hormone 0.449 uIU/mL (0.358-3.740)
[2023-01-31] MEDS ORDERED: ENOXAPARIN 40 MG/0.4 ML SQ ONE (18:43)
[2023-01-31] MEDS ORDERED: METHYLPREDNISOLONE 40 MG INJ ONE (18:43)
[2023-01-31] MEDS: ALBUTEROL 2.5 MG/3 ML NEB SOL NEB SCH (19:00)
[2023-01-31] MEDS ORDERED: POTASSIUM PHOS 10 MM in NA CHLORIDE 0.9% 250 ML IV ONE (19:00)
[2023-01-31] MEDS ORDERED: ALBUTEROL 2.5 MG/3 ML NEB SOL ONE (19:06)
[2023-01-31] MEDS ORDERED: GUAIFENESIN/CODEINE 5ML UCUP PO PRN (20:04)
[2023-01-31] MEDS ORDERED: IPRATROPIUM BROM 0.5MG/2.5ML ONE (20:52)
[2023-01-31] MEDS: IPRATROPIUM BROM 0.5MG/2.5ML NEB SCH (21:00)
[2023-01-31] MEDS ORDERED: LORazepam 2 MG/ML VIAL IV ONE (21:29)
[2023-01-31] MEDS ORDERED: BENZONATATE 100 MG CAP PO PRN (21:31)
[2023-01-31 22:12] LABS: Arterial Blood Carboxyhemoglob 0.7 % (0-1.5); Blood Gas Oxyhemoglobin 96.7 % (94-97); Blood O2 Saturation 98.8 % (92-98.5)
[2023-01-31] MEDS ORDERED: ACETAMINOPHEN 325 MG TABLET ONE (22:54)
[2023-02-01] MEDS: METHYLPREDNISOLONE 40 MG INJ IV SCH ×2 (00:43→09:00)
[2023-02-01] MEDS ORDERED: METHYLPREDNISOLONE 40 MG INJ ONE ×2 (00:45→09:36)
[2023-02-01] MEDS: TRAMADOL HCL 50 MG TAB PO PRN ×3 (00:56→20:51)
[2023-02-01] MEDS ORDERED: TRAMADOL HCL 50 MG TAB ONE ×2 (00:59→08:03)
[2023-02-01] MEDS: ALBUTEROL 2.5 MG/3 ML NEB SOL NEB SCH ×4 (01:05→20:05)
[2023-02-01] MEDS: IPRATROPIUM BROM 0.5MG/2.5ML NEB SCH ×2 (01:05→08:00)
[2023-02-01] MEDS ORDERED: ALBUTEROL 2.5 MG/3 ML NEB SOL ONE ×3 (01:09→14:27)
[2023-02-01 03:18] LABS: Phosphorus 2.2 mg/dL (2.5-4.9); Potassium 3.7 mEq/L (3.5-5.1)
[2023-02-01 03:48] LABS: Hematocrit 36.5 % (36.0-45.0); MCV 87.4 fL (80-100); RBC Red Blood Cell Count 4.18 M/uL (3.86-4.86)
[2023-02-01 03:49] LABS: Absolute Lymphocytes (CBC) 0.7 K/uL (0.7-4.9); Lymphocytes % 8.1 % (15.3-44.8); MPV 8.7 fL (7.6-11.3)
[2023-02-01 04:58] LABS: Blood Morphology Comment NOT SEEN (NOT SEEN); Platelet Estimate ADEQ; White Blood Cell Scan OK (OK)
[2023-02-01] MEDS ORDERED: ONDANSETRON 4 MG/2 ML VIAL ONE (08:03)
[2023-02-01] MEDS ORDERED: ASPIRIN 81 MG CHEWABLE TABLET ONE (08:03)
[2023-02-01] MEDS ORDERED: ENOXAPARIN 40 MG/0.4 ML SQ ONE (08:04)
[2023-02-01] MEDS: ONDANSETRON 4 MG/2 ML VIAL IV PRN ×2 (09:00→20:51)
[2023-02-01] MEDS: ASPIRIN 81 MG CHEWABLE TABLET PO SCH (09:00)
[2023-02-01] MEDS ORDERED: POTASSIUM PHOS IN 0.9 % NACL 15 MMOL/250 ML BAG IV ONE (09:00)
[2023-02-01] MEDS: ENOXAPARIN 40 MG/0.4 ML SQ SCH (09:00)
--- NOTE | 2023-02-01 12:29 | P.CNS ---
Date of Consult: 02/01/23 Reason for Consult: Shortness of breath Chief Complaint: SOb History of Present Illness: Patient is a 42 years of age no prior history of pulmonary complaints history of heavy tobacco abuse admitted with acute shortness of breath wheezing tightness Here to the emergency room no prior history of cardiopulmonary problems Allergies Sulfa (Sulfonamide Antibiotics) Allergy (Unverified 02/01/23 07:52) Unknown sulfamethoxazole [From Bactrim] Allergy (Verified 02/24/16 01:27) Shortness of breath trimethoprim [From Bactrim] Allergy (Verified 02/24/16 01:27) Hives/Rash Sulfa (Sulfonamid Allergy (Uncoded 02/27/16 05:43) Unknown Home Medications: Doxycycline Hyclate 100 mg PO BID #14 tablet 02/24/16 Paroxetine HCl [Paxil] 10 mg PO DAILY #30 tablet 02/24/16 metroNIDAZOLE [Flagyl] 500 mg PO BID #14 tablet 02/24/16 Hydrocodone Bit/Acetaminophen [[place] 10-325 Tablet] 1 each PO Q6HP PRN #30 tablet 03/02/16 Promethazine Tab [Phenergan] 25 mg PO Q6HP PRN #30 tab 03/02/16 clonazePAM [Klonopin] 0.5 mg PO TIDP PRN #60 tab 03/02/16 levoFLOXacin [Levaquin*] 500 mg PO DAILY #7 tab 03/02/16 metroNIDAZOLE [Flagyl*] 500 mg PO TID #30 tablet 03/02/16 - Past Medical/Surgical History Diabetic: No -: anxiety -: seizures -: tubal pregancy -: i/d of chin -: ovarian cyst - Family History Father Medical History: Heart disease Mother Notes: copd, asthma - Social History Alcohol use: No CD- Drugs: No Caffeine use: No Place of Residence: Home Review of Systems 10-point ROS is otherwise unremarkable Respiratory: Cough, Shortness of Breath Physical Examination Temp Pulse Resp BP Pulse Ox 97.5 F 82 16 128/91 H 95 02/01/23 04:00 02/01/23 08:00 02/01/23 08:00 02/01/23 08:00 02/01/23 08:00 General: Alert, Oriented x3, Acute distress Neck: Supple Respiratory: Expiratory wheezes Cardiovascular: No edema, Normal pulses, Normal S1 S2 Gastrointestinal: Normal bowel sounds, Soft and benign Laboratory Data (last 24 hrs) 01/31/23 17:32: Phosphorus 2.1 L, Magnesium 2.2 01/31/23 11:53: Sodium 137, Potassium 3.5, BUN 6 L, Creatinine 0.63, Glucose 147 H, Total Bilirubin 0.7, AST 8 L, ALT 17, Alkaline Phosphatase 90 - Problems (1) COPD exacerbation Current Visit: Yes Status: Acute Plan: Strongly suspect that patient has COPD there is no prior history of COPD history of significant tobacco abuse including use of marijuana CT scan no evidence of pulmonary embolism mild diffuse COPD with steroids bronchodilators plan for discharge tomorrow on Zithromax continue with Dulera from the hospital and prednisone 10 twice daily for 2 weeks
[2023-02-01] MEDS: AZITHROMYCIN 250 MG TAB PO SCH (13:00)
[2023-02-01] MEDS: DULERA 200/5 (MOMETASONE/FORMOTEROL) INHALER IH SCH ×2 (13:00→20:51)
--- NOTE | 2023-02-01 13:03 | P.PN ---
Subjective Date of Service: 02/01/23 Chief Complaint: SOb Subjective: No new changes, Improving Physical Examination - Vital Signs Temperature: 97.5 F Blood Pressure: 128/84 Pulse: 78 Respirations: 15 Pulse Ox (%): 95 - Physical Exam General: Alert, Oriented x3 HEENT: Atraumatic, Normocephalic Neck: Supple Respiratory: Expiratory wheezes Cardiovascular: Regular rate/rhythm, Normal S1 S2 Gastrointestinal: Soft and benign Musculoskeletal: No swelling Neurological: Normal speech, Normal strength at 5/5 x4 extr - Studies Laboratory Data (last 24 hrs) 01/31/23 17:32: Phosphorus 2.1 L, Magnesium 2.2 Assessment And Plan - Plan --Acute respiratory failure with hypoxia. Secondary to COPD exacerbation. Patient is now on supplemental oxygen. Continue neb treatment with albuterol \Atrovent and steroids. -- Acute on chronic COPD exacerbation. Continue current treatment regimen. for possible dc in am. --Mild leukocytosis. Likely steroid-induced. Blood cultures pending. Will review blood cultures. -- Anxiety disorder\depression. Continue home medication. --History of seizures. Continue home medication. Seizure precautions. --Headache. Tylenol as needed. -- DVT prophylaxis with Lovenox subQ. Discharge Plan: Home in next 24hrs. Physician Review: Patient Assessed, Agree with Above Assessment and Plan
--- NOTE | 2023-02-01 14:23 | EKG ---
Test Date: 2023-01-31 Test Time: 12:31:40 Cookie Breaker: ISA MEASUREMENT RESULTS: Intervals: Rate: 62 WV: 142 QRSD: 84 QT: 444 QTc: 450 [place]: P: WV: 142 QRS: 68 T: 195 INTERPRETIVE STATEMENTS: Normal sinus rhythm Septal infarct, age undetermined Lateral infarct, age undetermined Possible Inferior infarct, age undetermined Abnormal ECG Compared to ECG 12/23/2019 15:10:21 Myocardial infarct finding now present Sinus bradycardia no longer present Electronically Signed On 02-01-23 14:22:17 CDT by Emmanuel Oneal
[2023-02-01] MEDS ORDERED: AZITHROMYCIN 250 MG TAB ONE (14:44)
[2023-02-01 18:30] VITALS: BMI 29.2
[2023-02-01] MEDS: predniSONE 20 MG TAB PO SCH (20:51)
[2023-02-02] MEDS: ALBUTEROL 2.5 MG/3 ML NEB SOL NEB SCH ×2 (01:45→09:40)
[2023-02-02 08:45] VITALS: BP 132/72; TEMP 97.9
[2023-02-02] MEDS: DULERA 200/5 (MOMETASONE/FORMOTEROL) INHALER IH SCH (09:00)
[2023-02-02 09:10] LABS: Potassium 3.6 mEq/L (3.5-5.1)
[2023-02-02] MEDS: ENOXAPARIN 40 MG/0.4 ML SQ SCH (11:02)
[2023-02-02] MEDS: predniSONE 20 MG TAB PO SCH (11:02)
[2023-02-02] MEDS: ASPIRIN 81 MG CHEWABLE TABLET PO SCH (11:02)
[2023-02-02] MEDS: AZITHROMYCIN 250 MG TAB PO SCH (11:03)
[2023-02-02 12:09] VITALS: O2SAT 97
--- NOTE | 2023-02-02 14:02 | P.DS ---
Admission Date: 01/31/23 Discharge Date: 02/02/23 Disposition: ROUTINE DISCHARGE Discharge Condition: FAIR Reason for Admission: SOb - Problems (1) Acute respiratory failure with hypoxia Current Visit: Yes Status: Acute (2) COPD exacerbation Current Visit: Yes Status: Acute Brief History of Present Illness: Patient is a 42-year-old female with a past medical history significant for COPD, seizures who presents with complaint of shortness of breath onset yesterday. Patient reported that she was recently treated for strep throat with amoxicillin. Patient later experienced shortness of breath with wheezing and chest tightness. She therefore presented to the emergency department where patient was noted to be audibly wheezing. She was diagnosed with COPD exacerbation versus acute asthma. She partially improved with nebulizer treatment in the ED. Patient was hospitalized for further management. Hospital Course: Acute respiratory failure with hypoxia/Acute on chronic COPD exacerbation.. Secondary to COPD exacerbation. Patient was treated with nebulizer treatment, bronchodilators, steroids and Zithromax. Symptoms resolved, patient weaned off oxygen. She is tolerating room air and deemed stable for discharge. Mild leukocytosis. Likely steroid or stress induced. Blood cultures: No growth. Resolved. Headache. Tylenol as needed. Vital Signs/Physical Exam: Temp Pulse Resp BP Pulse Ox 97.9 F 73 16 132/72 97 02/02/23 08:00 02/02/23 08:00 02/02/23 08:00 02/02/23 08:00 02/02/23 08:00 General: Alert, In no apparent distress, Oriented x3 HEENT: Mucous membr. moist/pink Neck: JVD not distended Respiratory: Clear to auscultation bilaterally, Normal air movement Cardiovascular: No edema, Regular rate/rhythm, Normal S1 S2 Gastrointestinal: Soft and benign, Non-distended Musculoskeletal: No swelling Integumentary: No cyanosis Neurological: Normal strength at 5/5 x4 extr Laboratory Data at Discharge: WBC 9.20 thou/uL (4.3-10.9) 02/01/23 02:01 Hgb 12.5 g/dL (12.0-15.0) D 02/01/23 02:01 Hct 36.5 % (36.0-45.0) 02/01/23 02:01 Plt Count 365 thou/uL (152-406) 02/01/23 02:01 PT 11.3 SECONDS (9.5-12.5) 01/31/23 11:53 INR 1.03 01/31/23 11:53 APTT 32.5 SECONDS (24.3-36.9) 01/31/23 11:53 Sodium 136 mEq/L (136-145) 02/02/23 08:29 Potassium 3.6 mEq/L (3.5-5.1) 02/02/23 08:29 BUN 9 mg/dL (7-18) 02/02/23 08:29 Creatinine 0.75 mg/dL (0.55-1.02) 02/02/23 08:29 Glucose 107 mg/dL (74-106) H 02/02/23 08:29 Phosphorus 2.2 mg/dL (2.5-4.9) L 02/01/23 02:01 Magnesium 2.2 mg/dL (1.6-2.4) 01/31/23 17:32 Total Bilirubin 0.7 mg/dL (0.2-1.0) 01/31/23 11:53 AST 8 U/L (15-37) L 01/31/23 11:53 ALT 17 U/L (13-56) 01/31/23 11:53 Alkaline Phosphatase 90 U/L (45-117) 01/31/23 11:53 Home Medications: Azithromycin Tab [Zithromax*] 500 mg PO DAILY #6 tab 02/02/23 Mometasone/Formoterol [Dulera 100 Mcg-5 Mcg Inhaler] 13 gm IH BID #1 inh 02/02/23 predniSONE [Prednisone*] 20 mg PO BID #6 tab 02/02/23 New Medications: Mometasone/Formoterol [Dulera 100 Mcg-5 Mcg Inhaler] 13 gm IH BID #1 inh predniSONE [Prednisone*] 20 mg PO BID #6 tab Azithromycin Tab [Zithromax*] 500 mg PO DAILY #6 tab Diet: AHA Activity: Ad loraine Followup: Herson Llamas MD [ACTIVE - CAN ADMIT] - (Within 2 weeks.) NONE,NONE [Primary Care Provider] - Time spent managing pt's care (in minutes): 38
== END 2023-02-02 15:16 | disposition home or self-care (01) | DRG 189 ==
LOC: ER 11:31 → ERHOLD 17:57 → 2ND 02-01 18:28
PROVIDERS: ADMIT Internal Medicine; ATTEND Internal Medicine
PROC: 5A09357 Assistance with Respiratory Ventilation, Less than 24 Consecutive Hours, Continuous Positive Airway Pressure (ICD-10-PCS; principal; 2023-01-31)
DX: J96.01 Acute respiratory failure with hypoxia (principal); J44.1 Chronic obstructive pulmonary disease with (acute) exacerbation; R56.9 Unspecified convulsions; R51.9 Headache, unspecified; R05.9 Cough, unspecified; D72.829 Elevated white blood cell count, unspecified; F41.8 Other specified anxiety disorders; F12.90 Cannabis use, unspecified, uncomplicated; Z20.822 Contact with and (suspected) exposure to COVID-19; Z72.0 Tobacco use; Z79.899 Other long term (current) drug therapy; Z88.2 Allergy status to sulfonamides; Z88.3 Allergy status to other anti-infective agents; Z82.5 Family history of asthma and other chronic lower respiratory diseases; Z82.49 Family history of ischemic heart disease and other diseases of the circulatory system
CPT/HCPCS: 36415; 71045; 71275; 80048; 80053; 82805; 82947; 83605; 83735; 83880; 84100; 84439; 84443; 84484; 85025; 85610; 85730; 87040; 93005; 94660; 99285; J0696; J1650; J2405; J2920; J2930; J3475; J3535; J7050; J7512; J7613; J7614; J7644; Q9967; U0003

== ENCOUNTER 2023-09-22 21:31 | Emergency (ER) | payer SELFPAY ==
[2023-09-22] MEDS ORDERED: ONDANSETRON 4 MG (ODT) TAB ONE (22:35)
[2023-09-22] MEDS ORDERED: HYDROCODONE/APAP 5/325 MG TAB ONE (22:44)
--- NOTE | 2023-09-23 00:06 | ER ---
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 Patient stated does not know if + LOC. 21:36 Coronavirus screen: Vaccine status: Patient reports being unvaccinated. Client denies pf1 travel out of the [place] in the last 14 days. At this time, the client does not indicate any symptoms associated with coronavirus-19. Ebola Screen: Patient negative for fever greater than or equal to 101.5 degrees Fahrenheit, and additional compatible Ebola Virus Disease symptoms. Initial Sepsis Screen: Does the patient meet any 2 criteria? No. Patient's initial sepsis screen is negative. Does the patient have a suspected source of infection? No. Patient's initial sepsis screen is negative. Risk Assessment: Do you want to hurt yourself or someone else? Patient reports no desire to harm self or others. 21:36 Method Of Arrival: Wheelchair pf1 21:36 Acuity: PABLO 3 pf1 Triage Assessment: 09/23 00:21 Pain: Also complains of. km8 Historical: - Allergies: 09/22 21:51 Sulfa (Sulfonamide Antibiotics); pf1 21:51 Levaquin; pf1 21:52 antibiotic-unknown name; pf1 - PMHx: 21:51 Ovarian cyst; Seizures; pf1 - PSHx: 21:51 R ankle; tubal ligation; pf1 - Immunization history:: Adult Immunizations not up to date, Client reports having NOT received the Covid vaccine. Last tetanus immunization: > 10 years ago Flu vaccine is not up to date. - Social history:: Smoking status: Patient/guardian denies using tobacco, Stopped _ months ago 1 Patient uses alcohol, but reports only rare drinking. Patient/guardian denies using street drugs. Screenin:52 [facility] ED Fall Risk Assessment (Adult) History of falling in the last 3 months, km8 including since admission No falls in past 3 months (0 pts) Confusion or Disorientation No (0 pts) Intoxicated or Sedated No (0 pts) Impaired Gait No (0 pts) Mobility Assist Device Used No (0 pt) Altered Elimination No (0 pt) Score/Fall Risk Level 0 - 2 = Low Risk Oriented to surroundings, Maintained a safe environment, Educated pt \T\ family on fall prevention, incl call for assistance when getting out of bed, Assessed \T\ reinforced patient's understanding of fall precautions. Abuse screen: Denies threats or abuse. Denies injuries from another. Nutritional screening: No deficits noted. Tuberculosis screening: No symptoms or risk factors identified. Assessment: 21:52 General: Appears in no apparent distress. uncomfortable, Behavior is calm, cooperative, km8 appropriate for age. Pain: Complains of pain in top of head Pain currently is 9 out of 10 on a pain scale. Quality of pain is described as aching. Neuro: Howard Agitation-Sedation Scale (RASS): 0 - Alert and Calm Level of Consciousness is awake, alert, obeys commands, Oriented to person, place, time, situation, Pupils are PERRLA, Reports blurred vision dizziness, headache possible LOC. Cardiovascular: Denies chest pain, shortness of breath, Capillary refill < 3 seconds Patient's skin is warm and dry. Respiratory: Airway is patent Respiratory effort is even, unlabored, Respiratory pattern is regular, symmetrical. GI: No signs and/or symptoms were reported involving the gastrointestinal system. : No signs and/or symptoms were reported regarding the genitourinary system. EENT: No signs and/or symptoms were reported regarding the EENT system. Derm: No signs and/or symptoms reported regarding the dermatologic system. Skin is intact, is healthy with good turgor, Skin is dry, Skin is pink, warm \T\ dry. normal, Skin temperature is warm. Musculoskeletal: No signs and/or symptoms reported regarding the musculoskeletal system. Circulation, motion, and sensation intact. Range of motion: intact in all extremities. 23:00 Reassessment: Patient appears in no apparent distress at this time. No changes from km8 previously documented assessment. Patient and/or family updated on plan of care and expected duration. Pain level reassessed. Patient is alert, oriented x 3, equal unlabored respirations, skin warm/dry/pink. 09/23 00:01 Reassessment: Patient appears in no apparent distress at this time. Patient and/or km8 family updated on plan of care and expected duration. Pain level reassessed. Patient is alert, oriented x 3, equal unlabored respirations, skin warm/dry/pink. Patient states feeling better. Patient states symptoms have improved. Vital Signs: 09/22 21:36 BP 142 / 96; Pulse 90; Resp 16; Temp 97.1; Pulse Ox 97% on R/A; Weight 79.38 kg; Height pf1 5 ft. 4 in. ; Pain 8/10; 22:00 BP 151 / 100; Pulse 89; Resp 18; Pulse Ox 95% on R/A; km8 23:30 BP 130 / 94; Pulse 64; Resp 16; Pulse Ox 94% on R/A; km8 09/23 00:00 BP 136 / 88; Pulse 96; Resp 16; Pulse Ox 95% on R/A; km8 09/22 21:36 Body Mass Index 30.04 (79.38 kg, 162.56 cm) pf1 09/22 21:36 Pain Scale: Adult pf1 Thuy Coma Score: 09/22 21:52 Eye Response: spontaneous(4). Motor Response: obeys commands(6). Verbal Response: km8 oriented(5). Total: 15. ED Course: 21:34 Patient arrived in ED. gm2 21:44 Harshil Mccarty PA is PHCP. cp 21:44 Harshil Benjamin MD is Attending Physician. cp 21:51 Triage completed. pf1 21:52 Janice Vergara, TRACI is Primary Nurse. km8 21:52 Patient has correct armband on for positive identification. Bed in low position. Call km8 light in reach. Side rails up X 1. Pulse ox on. NIBP on. Door closed. Lights dimmed. 21:52 No provider procedures requiring assistance completed. Patient maintains SpO2 km8 saturation greater than 95% on room air. 22:51 CT Head C Spine In Process Unspecified. EDMS 23:00 XRAY Hand RIGHT 3 View In Process Unspecified. EDMS 23:00 XRAY Shoulder RIGHT 2 view In Process Unspecified. EDMS 09/23 00:22 Provided Education on: d/c teaching. km8 00:22 Patient did not have IV access during this emergency room visit. km8 Administered Medications: 09/22 22:32 Drug: Ondansetron PO 4 mg PO once Route: PO; km8 09/23 00:00 Follow up: Response: No adverse reaction 8 09/22 22:32 Drug: HYDROcodone-acetaminophen PO 5 mg-325 mg 2 tabs PO once Route: PO; km8 09/23 00:00 Follow up: Response: No adverse reaction; Pain is decreased 8 09/22 22:34 CANCELLED (not available in pyxiss): hydrocodone-[id number] mg-325 mg 1 tabs PO km8 once 09/23 00:14 CANCELLED (Physician Discretion): [id number] mg IVP once km8 00:21 Drug: Ketorolac IM 30 mg IM once Route: IM; Site: right deltoid; km8 Medication: 09/22 21:52 VIS not applicable for this client. km8 Outcome: 09/23 00:06 Discharge ordered by MD. burt 00:30 Discharged to home ambulatory, km8 00:30 Condition: good 00:30 Discharge instructions given to patient, Instructed on discharge instructions, follow up and referral plans. medication usage, Demonstrated understanding of instructions, follow-up care, medications, Prescriptions given X 2, 00:30 Patient left the ED. km8 Signatures: Dispatcher [employer] EDMS Harshil Mccarty PA PA cp Finley, Pamala RN RN renée1 Veronica Arias gm2 Janice Vergara RN RN km8
--- NOTE | 2023-09-23 00:07 | EDPHYS ---
Physician Documentation [facility] Name: Vanessa Solitario Age: 42 yrs Sex: Female : 1980 Arrival Date: 09/22/2023 Time: 21:31 Bed 15 Private MD: ED Physician Harshil Benjamin HPI: 09/22 22:30 This 42 yrs old Female presents to ER via Wheelchair with complaints of Dizziness, cp Headache, ceiling fan fell on patients head. 22:30 The patient presents with dizziness, lightheadedness. Onset: The symptoms/episode cp began/occurred just prior to arrival. Context: patient reports ceiling fan fell from ceiling and struck right side of head, right shoulder and right hand. Associated signs and symptoms: Pertinent positives: headache, nausea, right shoulder pain, right hand pain, Pertinent negatives: abdominal pain, chest pain, vomiting. Severity of symptoms: in the emergency department the symptoms are unchanged despite EMS interventions. Patient's baseline: Neuro: alert and fully oriented, Motor: no deficits, Ambulation: walks without assistance, Speech: normal. Historical: - Allergies: 21:51 Sulfa (Sulfonamide Antibiotics); pf1 21:51 Levaquin; pf1 21:52 antibiotic-unknown name; pf1 - PMHx: 21:51 Ovarian cyst; Seizures; pf1 - PSHx: 21:51 R ankle; tubal ligation; pf1 - Immunization history:: Adult Immunizations not up to date, Client reports having NOT received the Covid vaccine. Last tetanus immunization: > 10 years ago Flu vaccine is not up to date. - Social history:: Smoking status: Patient/guardian denies using tobacco, Stopped _ months ago 1 Patient uses alcohol, but reports only rare drinking. Patient/guardian denies using street drugs. ROS: 22:35 Constitutional: Negative for body aches, chills, fever, poor PO intake, cp 22:35 Eyes: Negative for injury, pain, redness, and discharge, cp 22:35 Cardiovascular: Negative for chest pain, palpitations, 22:35 Respiratory: Negative for cough, shortness of breath, wheezing, 22:35 Abdomen/GI: Positive for nausea, Negative for abdominal pain, vomiting, diarrhea, constipation, 22:35 MS/extremity: Positive for pain, of the right shoulder and right hand, Negative for decreased range of motion, deformity, 22:35 Neuro: Positive for dizziness, headache, Negative for altered mental status, weakness, 22:35 All other systems are negative, Exam: 22:40 Constitutional: The patient appears in no acute distress, alert, awake, cp non-diaphoretic, well developed, well nourished, uncomfortable, 22:40 Head/face: Noted is contusion, that is superficial, of the right frontal area, right cp temporal area and right side of forehead, tenderness, that is moderate, of the right frontal area, right side of the back of head, right temporal area and right side of forehead, 22:40 Eyes: Periorbital structures: appear normal, Pupils: equal, round, and reactive to light and accomodation, Extraocular movements: intact throughout, Lids and lashes: appear normal, bilaterally, 22:40 ENT: External ear(s): are unremarkable, Nose: is normal, Mouth: Lips: moist, Oral mucosa: pink and intact, moist, Posterior pharynx: is normal, airway is patent, no erythema, no exudate, 22:40 Neck: C-spine: vertebral tenderness, is not appreciated, crepitus, is not appreciated, 22:40 Chest/axilla: Inspection: normal, 22:40 Cardiovascular: Rate: normal, Rhythm: regular, 22:40 Respiratory: the patient does not display signs of respiratory distress, Respirations: normal, no use of accessory muscles, no retractions, labored breathing, is not present, Breath sounds: are clear throughout, no decreased breath sounds, no stridor, no wheezing, 22:40 Abdomen/GI: Inspection: abdomen appears normal, 22:40 Back: pain, that is moderate, of the right trapezius and right scapular area, 22:40 Musculoskeletal/extremity: Extremities: grossly normal except: noted in the right hand and right shoulder: pain, tenderness, There is no evidence of decreased ROM, deformity, Pulses: noted to be 2+ in the right radial artery, 22:40 Neuro: Orientation: to person, place \T\ time. Mentation: is normal, Motor: moves all fours, strength is normal, Vital Signs: 21:36 BP 142 / 96; Pulse 90; Resp 16; Temp 97.1; Pulse Ox 97% on R/A; Weight 79.38 kg; Height pf1 5 ft. 4 in. ; Pain 8/10; 22:00 BP 151 / 100; Pulse 89; Resp 18; Pulse Ox 95% on R/A; km8 23:30 BP 130 / 94; Pulse 64; Resp 16; Pulse Ox 94% on R/A; km8 09/23 00:00 BP 136 / 88; Pulse 96; Resp 16; Pulse Ox 95% on R/A; km8 09/22 21:36 Body Mass Index 30.04 (79.38 kg, 162.56 cm) pf1 09/22 21:36 Pain Scale: Adult pf1 Thuy Coma Score: 09/22 21:52 Eye Response: spontaneous(4). Motor Response: obeys commands(6). Verbal Response: km8 oriented(5). Total: 15. MDM: 21:44 Patient medically screened. cp 09/23 00:05 Data reviewed: vital signs, nurses notes, radiologic studies, CT scan, plain films. cp 00:05 Differential diagnosis: fracture, intracranial bleed, contusion. I considered the cp following discharge prescriptions or medication management in the emergency department Medications were administered in the Emergency Department. See MAR. Counseling: I had a detailed discussion with the patient and/or guardian regarding the historical points, exam findings, and any diagnostic results supporting the discharge/admit diagnosis, radiology results, to return to the emergency department if symptoms worsen or persist or if there are any questions or concerns that arise at home. Response to treatment: the patient's symptoms have markedly improved after treatment, and as a result, I will discharge patient. Special discussion: Based on the patient's history, exam and DX evaluation, there is no indication for emergent intervention or inpatient TX. It is understood by the patient/guardian that if the SXs persist or worsen they need to return immediately for re-evaluation. 09/22 22:17 Order name: CT Head C Spine cp 09/22 22:17 Order name: XRAY Hand RIGHT 3 View 09/22 22:17 Order name: XRAY Shoulder RIGHT 2 view cp 09/23 00:06 Order name: Sling; Complete Time: 00:21 cp Administered Medications: 09/22 22:32 Drug: Ondansetron PO 4 mg PO once Route: PO; [facility] 09/23 00:00 Follow up: Response: No adverse reaction [facility] 09/22 22:32 Drug: HYDROcodone-acetaminophen PO 5 mg-325 mg 2 tabs PO once Route: PO; km8 09/23 00:00 Follow up: Response: No adverse reaction; Pain is decreased km8 09/22 22:34 CANCELLED (not available in pyxiss): hydrocodone-ysrwxgcvxqpuu00 mg-325 mg 1 tabs PO km8 once 09/23 00:14 CANCELLED (Physician Discretion): [id number] mg IVP once km8 00:21 Drug: Ketorolac IM 30 mg IM once Route: IM; Site: right deltoid; km8 Disposition Summary: 09/23/23 00:06 Discharge Ordered Notes: Location: Home cp Problem: new cp Symptoms: have improved cp Condition: Stable cp Diagnosis - Contusion of unspecified part of head, initial encounter cp - Contusion of right shoulder cp - Contusion of right hand cp Followup: cp - With: Private Physician - When: 2 - 3 days - Reason: Recheck today's complaints Discharge Instructions: - Discharge Summary Sheet cp - Hand Contusion cp - Facial or Scalp Contusion cp - Head Injury, Adult cp - Shoulder Pain cp - Shoulder Range of Motion Exercises cp Forms: - Medication Reconciliation Form cp - Thank You Letter cp - Antibiotic Education cp - Prescription Opioid Use cp - Patient Portal Instructions cp - Leadership Thank You Letter cp Prescriptions: - Naprosyn 500 mg Oral tablet - take 1 tablet ORAL route 2 times per day take with food; 20 tablet; Refills: 0, cp Product Selection Permitted - Cyclobenzaprine 10 mg Oral tablet - take 1 tablet ORAL route every 8 hours As needed; 20 tablet; Refills: 0, cp Product Selection Permitted Signatures: [facility] Harshil Mccarty PA PA cp Leslie Suarez RN RN pf1 Janice Vergara RN RN km8 Corrections: (The following items were deleted from the chart) 09/22 22:34 22:18 HYDROcodone-acetaminophen PO 10 mg-325 mg 1 tabs PO once ordered. cp km8 22:34 22:20 HYDROcodone-acetaminophen PO 10 mg-325 mg 1 tabs PO once ordered. km8 km8 09/23 00:14 00:06 Ketorolac IVP 15 mg IVP once ordered. cp km8
[2023-09-23] MEDS ORDERED: KETOROLAC 30 MG/ML INJ ONE (00:29)
[2023-09-23 00:43] VITALS: TEMP 97.1
[2023-09-23 00:46] VITALS: BP 136/88; O2SAT 95
--- NOTE | 2023-09-25 12:26 | RAD REPORT ---
EXAM DESCRIPTION: RAD - Hand Right 3 View - 09/22/2023 10:58 pm CLINICAL HISTORY: PAIN COMPARISON: None. FINDINGS: 3 views of the right hand. No acute fracture or dislocation. Normal osseous workers compensation claims examiner alization. IMPRESSION: No acute fracture or dislocation. Electronically signed by: Andres Byers DO 09/22/2023 11:07 PM TIRE REGROOVING MACHINE OPERATOR M Due to temporary technical issues with the PACS/Fluency reporting system, reports are being signed by the in house radiologist without review as a courtesy to ensure prompt reporting. The interpreting r adiologist is fully responsible for the content of the report.
--- NOTE | 2023-09-25 12:27 | RAD REPORT ---
EXAM DESCRIPTION: RAD - Shoulder Right 2 View - 09/22/2023 10:58 pm CLINICAL HISTORY: PAIN COMPARISON: None. FINDINGS: 2 views of the right shoulder. No acute fracture or dislocation. Normal osseous m ineralization. No acute abnormality of the visualized right ribs IMPRESSION: No acute fracture or dislocation. Electronically signed by: Andres Byers DO 09/22/2023 11:08 PM FITNESS TEACHER M Due to temporary technical issues with the PACS/Fluency reporting system, reports are being signed by the in house radiologist without review as a courtesy to ensure prompt reporting. The interpreting r adiologist is fully responsible for the content of the report.
--- NOTE | 2023-09-25 16:35 | RAD REPORT ---
EXAM DESCRIPTION: CT - Head C Spine Mpr Wo Con - 09/23/2023 7:22 am CLINICAL HISTORY: The patient is 42 years old and is Female; HEADACHE TECHNIQUE: Axial computed tomography images of the head/brain and cervical spine without intravenous contrast. Sagittal and coronal reformatted images were created and reviewed. This CT exam was pe rformed using one or more of the following dose reduction techniques: automated exposure control, a djustment of the mA and/or kV according to patient size, and/or use of iterative reconstruction techn ique. DLP: 1199 mGy*cm COMPARISON: None. FINDINGS: BRAIN: Unremarkable. No hemorrhage. No significant white matter disease. No edema. VENTRICLES: Unremarkable. No ventriculomegaly. SKULL: Air-fluid level in the left maxillary sinus. No acute fracture. SINUSES: See above. MASTOID AIR CELLS: Unremarkable as visualized. No mastoid effusion. VERTEBRAE: Reversal of the cervical lordosis. No acute fracture. DISCS/SPINAL CANAL/NEURAL FORAMINA: No acute findings. No spinal canal stenosis. SOFT TISSUES: Unremarkable. IMPRESSION: 1. No acute intracranial abnormality. 2. No acute cervical spine fracture or subluxation. 3. Reversal of the cervical lordosis. Findings may be positional or due to muscle spasm. 4. Air-fluid level in the left maxillary sinus. Electronically signed by: Stan Miles DO 09/22/2023 11:00 PM LIEUTENANT GOVERNOR Due to temporary technical issues with the PACS/Fluency reporting system, reports are being signed by the in house radiologist without review as a courtesy to ensure prompt reporting. The interpreting r adiologist is fully responsible for the content of the report.
== END 2023-09-23 00:30 | disposition home or self-care (01) ==
LOC: ER 21:31
DX: S00.93XA Contusion of unspecified part of head, initial encounter (principal); S40.011A Contusion of right shoulder, initial encounter; S60.221A Contusion of right hand, initial encounter; W20.8XXA Other cause of strike by thrown, projected or falling object, initial encounter; Z87.891 Personal history of nicotine dependence; Z88.1 Allergy status to other antibiotic agents; Z88.2 Allergy status to sulfonamides; Z88.3 Allergy status to other anti-infective agents
CPT/HCPCS: 70450; 72125; 96372; 99285; Q0162